=== PATIENT | female | born 1975 | race Caucasian/White ===

== ENCOUNTER 2022-03-22 21:35 | Emergency (ER) | payer OTHER, SELFPAY ==
[2022-03-22] MEDS ORDERED: NA CHLORIDE 0.9% 1,000 ML ONE (22:06)
[2022-03-22] MEDS ORDERED: ASPIRIN 81 MG CHEWABLE TABLET ONE (22:06)
[2022-03-22] MEDS ORDERED: ONDANSETRON 4 MG/2 ML VIAL ONE (22:10)
[2022-03-22 22:40] LABS: Absolute Lymphocytes (CBC) 3.4 K/uL (0.7-4.9); Hematocrit 37.4 % (36.0-45.0); Lymphocytes % 44.4 % (15.3-44.8); MPV 8.2 fL (7.6-11.3); RBC Red Blood Cell Count 4.39 M/uL (3.86-4.86)
[2022-03-22 22:43] LABS: Protime INR 0.99
[2022-03-22] MEDS ORDERED: FENTANYL CITR 100 MCG/2 ML ONE (22:51)
[2022-03-22 22:57] LABS: ALT/SGPT 37 U/L (12-78); AST/SGOT 18 U/L (15-37); Albumin 3.7 g/dL (3.4-5.0); Alkaline Phosphatase 39 U/L (45-117); BUN Blood Urea Nitrogen 13 mg/dL (7-18); Bicarbonate 27 mmol/L (21-32); Bilirubin Total 0.2 mg/dL (0.2-1.0); Glucose Level 163 mg/dL (74-106); NT PRO-BNP 16 pg/mL (<125); Potassium 3.8 mmol/L (3.5-5.1); Protein, Total 7.3 g/dL (6.4-8.2); Sodium Level 139 mmol/L (136-145)
[2022-03-22 23:14] LABS: Bilirubin Direct < 0.1 mg/dL (0-0.2); Troponin High Sensitivity < 3.0 pg/mL (<58.9)
[2022-03-22] MEDS ORDERED: PROMETHAZINE INJ 25 MG/ML AMP ONE (23:46)
[2022-03-23] MEDS ORDERED: KETOROLAC 30 MG/ML INJ ONE (00:21)
[2022-03-23 01:02] LABS: Urine Blood Negative (Negative); Urine Glucose Trace (Negative); Urine Protein Negative (Negative)
--- NOTE | 2022-03-23 01:35 | ER ---
Nurse's Notes [facility] Name: Sera Mascorro Age: 46 yrs Sex: Female : 1975 Arrival Date: 03/22/2022 Time: 21:43 Bed 4 Private MD: Diagnosis: Chest pain, unspecified Presentation: 03/22 21:54 Chief complaint: EMS states: Called for patient with onset of chest pressure this lp1 evening, radiating to back, neck and left arm; patient reports recent sobriety, last cocaine use was 5 days ago. Coronavirus screen: At this time, the client does not indicate any symptoms associated with coronavirus-19. Ebola Screen: No symptoms or risks identified at this time. Initial Sepsis Screen: Does the patient meet any 2 criteria? No. Patient's initial sepsis screen is negative. Does the patient have a suspected source of infection? No. Patient's initial sepsis screen is negative. Risk Assessment: Do you want to hurt yourself or someone else? Patient reports no desire to harm self or others. Onset of symptoms was March 22, 2022. 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 - Social history:: Smoking status: Patient denies any tobacco usage or history of. Patient uses street drugs, cocaine. Screenin:00 Abuse screen: Denies threats or abuse. Denies injuries from another. Nutritional lp1 screening: No deficits noted. Tuberculosis screening: No symptoms or risk factors identified. Fall Risk None identified. Assessment: 22:00 General: Appears in no apparent distress. Behavior is calm, cooperative, appropriate lp1 for age. Pain: Complains of pain in chest Radiating to Neck, back, left arm Pain currently is 8 out of 10 on a pain scale. Quality of pain is described as pressure, Pain began gradually. Neuro: Level of Consciousness is awake, alert, obeys commands, Oriented to person, place, time, situation. Cardiovascular: Patient's skin is warm and dry. Rhythm is regular. Respiratory: Respiratory effort is even, unlabored. GI: Reports nausea. : No signs and/or symptoms were reported regarding the genitourinary system. EENT: No signs and/or symptoms were reported regarding the EENT system. Derm: Skin is pink, warm \T\ dry. Musculoskeletal: No deficits noted. 22:56 Reassessment: Patient reports pain to chest; Verbal order from Provider for Fentanyl lp1 25mcg IV now. 23:30 Reassessment: C/O nausea, Dayton Page notified, medicated as ordered. ll3 03/23 00:30 Reassessment: Patient appears in no apparent distress at this time. Patient resting, lp1 eyes closed, respirations even. 01:55 Reassessment: Called [facility] for transportation back to facility, Dave ESPINOSA lp1 15 min. Vital Signs: 03/22 21:54 BP 108 / 73; Pulse 90; Resp 18; Temp 98.5(O); Pulse Ox 94% on R/A; Weight 84.82 kg (R); lp1 Height 5 ft. 2 in. (157.48 cm); Pain 8/10; 22:30 BP 104 / 66; Pulse 85; Resp 22; Pulse Ox 96% on R/A; ll3 23:15 BP 109 / 68; Pulse 85; Resp 20; Pulse Ox 96% on R/A; lp1 03/23 00:36 BP 124 / 82; Pulse 91; Resp 18; Pulse Ox 94% ; ll3 01:37 BP 122 / 82; Pulse 89; Resp 16; Pulse Ox 93% on R/A; lp1 03/22 21:54 Body Mass Index 34.20 (84.82 kg, 157.48 cm) lp1 ED Course: 03/22 21:43 Patient arrived in ED. vc1 21:43 Dayton Almaguer PA is PHCP. cp 21:43 Omi Campos MD is Attending Physician. cp 21:53 Rdaha Burden, WAGNER is Primary Nurse. lp1 21:55 Triage completed. lp1 21:55 Arm band placed on. lp1 21:56 XRAY Chest (1 view) In Process Unspecified. EDMS 22:15 Patient has correct armband on for positive identification. Placed in gown. Bed in low lp1 position. Call light in reach. hall monitor on. Pulse ox on. NIBP on. 22:27 Inserted saline lock: 20 gauge in right antecubital area, using aseptic technique. lp1 Blood collected. 22:30 Patient maintains SpO2 saturation greater than 95% on room air. lp1 03/23 01:54 No provider procedures requiring assistance completed. IV discontinued, No lp1 redness/swelling at site. Pressure dressing applied. Administered Medications: 03/22 22:30 Drug: NS 0.9% 500 ml Route: IV; Rate: bolus; Site: right antecubital; lp1 22:58 Follow up: IV Status: Completed infusion; IV Intake: 500ml lp1 22:31 Drug: Aspirin Chewable Tablet 324 mg Route: PO; lp1 23:30 Follow up: Response: No adverse reaction lp1 22:31 Drug: Zofran (Ondansetron) 4 mg Route: IVP; Site: right antecubital; lp1 23:40 Follow up: Response: No change in condition lp1 22:40 Not Given (Patinet repors allergy): morphine 2 mg IVP once; (PAIN>8) RASS on ADMN: lp1 Combtv4, Very Agttd3, Agttd2, Rstlss1, AlertClm0, Drwsy-1, LtSdtn-2, ModSdtn-3, DpSdtn-4, UnArsble-5 x2 22:57 Drug: fentaNYL (PF) 25 mcg {Note: Verbal order per TREVOR Wyatt.} Route: IVP; Site: lp1 right antecubital; 03/23 00:00 Follow up: Response: Pain is unchanged, physician notified lp1 03/22 22:58 Drug: NS 0.9% 500 ml Route: IV; Rate: 125 ml/hr; Site: right antecubital; lp1 03/23 01:54 Follow up: IV Status: Completed infusion; IV Intake: 500ml lp1 00:15 Drug: Phenergan (promethazine) 12.5 mg Route: IVP; Site: right antecubital; ll3 01:41 Follow up: Response: Nausea is decreased lp1 00:28 Drug: Ketorolac 30 mg Route: IVP; Site: right antecubital; ll3 01:53 Follow up: Response: Pain is decreased lp1 Intake: 03/22 22:58 IV: 500ml; Total: 500ml. lp1 03/23 01:54 IV: 500ml; Total: 1000ml. lp1 Outcome: 01:34 Discharge ordered by . kdr 02:10 Discharged to home ambulatory, [facility] staff lp1 02:10 Condition: good 02:10 Discharge instructions given to patient, Instructed on discharge instructions, follow up and referral plans. Demonstrated understanding of instructions, follow-up care. 02:10 Patient left the ED. lp1 Signatures: Dispatcher [employer] EDMS Omi Campos MD MD kdr Pena, Laura RN RN lp1 Dayton Almaguer PA PA cp Loubet, Lynsea, RN RN ll3 Lachelle Hauser RN RN vc1
--- NOTE | 2022-03-23 01:35 | EDPHYS ---
Physician Documentation [facility] Name: Sera Mascorro Age: 46 yrs Sex: Female : 1975 Arrival Date: 03/22/2022 Time: 21:43 Bed 4 Private MD: ED Physician Omi Campos HPI: 03/22 21:50 This 46 yrs old Female presents to ER via EMS with complaints of Chest Pain > 30 y/o. cp 21:50 The patient or guardian reports chest pain that is located primarily in the anterior cp aspect of left upper chest and left breast. Onset: today, about 1930. The pain radiates to the left arm, the left shoulder, left back. The chest pain is described as sharp. 21:50 Associated signs and symptoms: Pertinent negatives: abdominal pain, diaphoresis, cp dizziness, headache, lower extremity pain, lower extremity swelling, palpitations, shortness of breath, syncope. Duration: The patient or guardian reports a single episode, that is still ongoing, and unchanged. 21:50 Patient admits to use of cocaine 5 days ago and reports she is currently in rehab for cp drug use. 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 - Social history:: Smoking status: Patient denies any tobacco usage or history of. Patient uses street drugs, cocaine. ROS: 21:55 Constitutional: Negative for body aches, chills, fever, poor PO intake. cp 21:55 Eyes: Negative for injury, pain, redness, and discharge. cp 21:55 ENT: Negative for drainage from ear(s), ear pain, sore throat, difficulty swallowing, difficulty handling secretions. 21:55 Cardiovascular: Positive for chest pain, Negative for edema, palpitations. 21:55 Respiratory: Negative for cough, shortness of breath, wheezing. 21:55 Abdomen/GI: Positive for nausea, Negative for abdominal pain, vomiting, diarrhea, constipation. 21:55 Back: Positive for radiated pain. 21:55 Skin: Negative for rash. 21:55 Neuro: Negative for altered mental status, dizziness, headache, weakness. 21:55 All other systems are negative. Exam: 21:55 ECG was reviewed by the Attending Physician. cp 22:00 Constitutional: The patient appears in no acute distress, alert, awake, cp non-diaphoretic, non-toxic, well developed, well nourished, obese. 22:00 Head/Face: Normocephalic, atraumatic. cp 22:00 Eyes: Periorbital structures: appear normal, Conjunctiva: normal, no exudate, no injection, Sclera: no appreciated abnormality, Lids and lashes: appear normal, bilaterally. 22:00 ENT: External ear(s): are unremarkable, Nose: is normal, Mouth: Lips: moist, Oral mucosa: pink and intact, moist, Posterior pharynx: Airway: no evidence of obstruction, patent. 22:00 Neck: ROM/movement: is normal, is supple, without pain, no range of motions limitations, no nuchal rigidity. 22:00 Chest/axilla: Inspection: normal. 22:00 Cardiovascular: Rate: normal, Rhythm: regular, Edema: is not appreciated, JVD: is not appreciated. 22:00 Respiratory: the patient does not display signs of respiratory distress, Respirations: normal, no use of accessory muscles, no retractions, labored breathing, is not present, Breath sounds: are clear throughout, no decreased breath sounds, no stridor, no wheezing. 22:00 Abdomen/GI: Inspection: abdomen appears normal, Bowel sounds: active, all quadrants, Palpation: soft, in all quadrants, mild abdominal tenderness, in the right upper quadrant and left upper quadrant, rebound tenderness, is not appreciated, involuntary guarding, is not appreciated. 22:00 Neuro: Orientation: to person, place \T\ time. Mentation: is normal, Motor: moves all fours, strength is normal, Sensation: is normal. 03/23 00:28 ECG was reviewed by the Attending Physician. cp Vital Signs: 03/22 21:54 BP 108 / 73; Pulse 90; Resp 18; Temp 98.5(O); Pulse Ox 94% on R/A; Weight 84.82 kg (R); lp1 Height 5 ft. 2 in. (157.48 cm); Pain 8/10; 22:30 BP 104 / 66; Pulse 85; Resp 22; Pulse Ox 96% on R/A; ll3 23:15 BP 109 / 68; Pulse 85; Resp 20; Pulse Ox 96% on R/A; lp1 03/23 00:36 BP 124 / 82; Pulse 91; Resp 18; Pulse Ox 94% ; ll3 01:37 BP 122 / 82; Pulse 89; Resp 16; Pulse Ox 93% on R/A; lp1 03/22 21:54 Body Mass Index 34.20 (84.82 kg, 157.48 cm) lp1 MDM: 03/22 22:00 Differential diagnosis: abnormal EKG, acute myocardial infarction, acute pericarditis, cp anxiety, cholecystitis, Cholelithiasis pancreatitis, pericarditis, pleurisy, pneumonia, pneumothorax, pulmonary embolus, stable angina, unstable angina. 22:13 Patient medically screened. cp 03/22 21:45 Order name: Basic Metabolic Panel; Complete Time: 23:37 cp 03/22 23:38 Interpretation: Normal except: GLUC 163; GFR 73. cp 03/22 21:45 Order name: CBC with Diff; Complete Time: 23:37 cp 03/22 23:38 Interpretation: Normal except: HGB 11.8; MCH 26.9; MCHC 31.5; RDW 16.3. cp 03/22 21:45 Order name: LFT's; Complete Time: 23:37 cp 03/22 21:45 Order name: Magnesium; Complete Time: 23:37 cp 03/22 21:45 Order name: NT PRO-BNP; Complete Time: 23:37 cp 03/22 21:45 Order name: PT-INR; Complete Time: 23:37 cp 03/22 21:45 Order name: Troponin HS; Complete Time: 23:37 cp 03/22 23:38 Interpretation: Troponin HS < 3.0; Reviewed. cp 03/22 21:45 Order name: XRAY Chest (1 view) cp 03/23 00:44 Order name: Troponin HS; Complete Time: 01:33 cp 03/23 01:02 Order name: Urine Dipstick-Ancillary; Complete Time: 01:33 EDMS 03/22 21:45 Order name: EKG; Complete Time: 21:46 cp 03/22 21:45 Order name: Cardiac monitoring; Complete Time: 21:57 cp 03/22 21:45 Order name: EKG - Nurse/Tech; Complete Time: :57 cp 03/22 21:45 Order name: IV Saline Lock; Complete Time: : cp 03/22 21:45 Order name: Labs collected and sent; Complete Time: : cp 03/22 21:45 Order name: O2 Per Protocol; Complete Time: :57 cp 03/22 21:45 Order name: O2 Sat Monitoring; Complete Time: :57 cp 03/22 21:45 Order name: Urine Dipstick-Ancillary (obtain specimen); Complete Time: 01:40 cp 03/23 00:15 Order name: EKG; Complete Time: 00:16 cp 03/23 00:15 Order name: EKG - Nurse/Tech; Complete Time: 00:28 cp EC:55 Rate is 86 beats/min. Rhythm is regular. SC interval is normal. QRS interval is normal. cp QT interval is normal. T waves are Inverted in leads III, aVR. Interpreted by me. Reviewed by me. 03/23 00:28 Rate is 86 beats/min. Rhythm is regular. SC interval is normal. QRS interval is normal. cp QT interval is normal. T waves are Inverted in lead aVR. Interpreted by me. Reviewed by me. Administered Medications: 03/22 22:30 Drug: NS 0.9% 500 ml Route: IV; Rate: bolus; Site: right antecubital; lp1 22:58 Follow up: IV Status: Completed infusion; IV Intake: 500ml lp1 22:31 Drug: Aspirin Chewable Tablet 324 mg Route: PO; lp1 23:30 Follow up: Response: No adverse reaction lp1 22:31 Drug: Zofran (Ondansetron) 4 mg Route: IVP; Site: right antecubital; lp1 23:40 Follow up: Response: No change in condition lp1 22:40 Not Given (Patinet repors allergy): morphine 2 mg IVP once; (PAIN>8) RASS on ADMN: lp1 Combtv4, Very Agttd3, Agttd2, Rstlss1, AlertClm0, Drwsy-1, LtSdtn-2, ModSdtn-3, DpSdtn-4, UnArsble-5 x2 22:57 Drug: fentaNYL (PF) 25 mcg {Note: Verbal order per TREVOR Wyatt.} Route: IVP; Site: lp1 right antecubital; 03/23 00:00 Follow up: Response: Pain is unchanged, physician notified lp1 03/22 22:58 Drug: NS 0.9% 500 ml Route: IV; Rate: 125 ml/hr; Site: right antecubital; lp1 03/23 01:54 Follow up: IV Status: Completed infusion; IV Intake: 500ml lp1 00:15 Drug: Phenergan (promethazine) 12.5 mg Route: IVP; Site: right antecubital; ll3 01:41 Follow up: Response: Nausea is decreased lp1 00:28 Drug: Ketorolac 30 mg Route: IVP; Site: right antecubital; ll3 01:53 Follow up: Response: Pain is decreased lp1 Disposition: 01:33 Co-signature as Attending Physician, Omi Campos MD I agree with the assessment and kdr plan of care. Disposition Summary: 03/23/22 01:34 Discharge Ordered Location: Home kdr Problem: new kdr Symptoms: have improved kdr Condition: Stable kdr Diagnosis - Chest pain, unspecified kdr Followup: kdr - With: Private Physician - When: 2 - 3 days - Reason: If symptoms return, Further diagnostic work-up, Recheck today's complaints, Continuance of care, Re-evaluation by your physician Discharge Instructions: - Discharge Summary Sheet kdr - Nonspecific Chest Pain, Adult, [id number] kdr Forms: - Medication Reconciliation Form kdr - Thank You Letter kdr Signatures: Dispatcher [employer] [facility] Omi Campos MD MD kdr Radha Burden RN RN lp1 Dayton Almaguer PA PA cp Loubet, Lynsea, RN RN ll3 Corrections: (The following items were deleted from the chart) 03/22 23:41 21:45 Urine Test ordered. lp1
[2022-03-23 03:15] VITALS: TEMP 98.5
[2022-03-23 03:21] VITALS: BP 122/82; O2SAT 93
--- NOTE | 2022-03-23 08:32 | RAD REPORT ---
EXAM DESCRIPTION: RAD - Chest Single View - 03/22/2022 9:54 pm CLINICAL HISTORY: CHEST PAIN COMPARISON: None available TECHNIQUE: AP portable chest image was obtained 03/22/2022 9:54 pm . FINDINGS: Lung volumes are low. No peripheral mass or consolidation. No failure or volume overload f indings. Heart and vasculature are normal. No measurable pleural effusion and no pneumothorax. No acu te bony abnormality seen. No acute aortic findings suspected. IMPRESSION: No acute cardiopulmonary process.
== END 2022-03-23 02:10 | disposition home or self-care (01) ==
LOC: ER 21:35
DX: R07.9 Chest pain, unspecified (principal); Z88.6 Allergy status to analgesic agent; E11.9 Type 2 diabetes mellitus without complications; F41.8 Other specified anxiety disorders
CPT/HCPCS: 96361; 93005 ×2; 85025; 80048; 36415; 83735; 85610; 80076; 81003; 84484 ×2; 83880; 71045; 96375; 96374; 99285; J2550; J3010; J7030; J2405

== ENCOUNTER 2022-03-29 14:58 | Emergency (ER) | payer OTHER ==
--- OUTSIDE RECORDS SUMMARY | 2022-03-29 15:04 | XMS REPORT | Continuity of Care Document ---
:1975 Author Organization [facility] t Address [address] [place] [address] Care Team Providers Name Role Phone [email or web address] Attending Clinician Unavailable Leticia Attending Clinician [phone] Onesimo Attending Clinician Unavailable Ginger Attending Clinician [phone] Fredrick Attending Clinician Unavailable CHIRAG Attending Clinician Unavailable FRANKIE Attending Clinician Unavailable Grady Attending Clinician Unavailable Marjan Attending Clinician Unavailable Ronit Attending Clinician [phone] Valerie Attending Clinician Unavailable MD MERY ROSENBERG Attending Clinician Unavailable SHAKIRA Attending Clinician Unavailable NEO COBIAN Attending Clinician Unavailable Nabil Attending Clinician Unavailable QUIN Attending Clinician Unavailable HARRIET Attending Clinician Unavailable Alejandra Attending Clinician [phone] Haseeb Attending Clinician Unavailable Shan Attending Clinician Unavailable Eliot Attending Clinician Unavailable La Nena Pacheco Attending Clinician [phone] Renny Attending Clinician Unavailable Renny Attending Clinician [phone] Meena Attending Clinician [phone] Nehemiah Attending Clinician Unavailable Vonnie Attending Clinician Unavailable Akash Attending Clinician [phone] Kehinde Attending Clinician Unavailable Hamilton Attending Clinician [phone] Wilmer Attending Clinician [phone] Bhaskar Attending Clinician Unavailable Santiago Attending Clinician [phone] Shahid Attending Clinician Unavailable Rajendra Attending Clinician Unavailable Sourav Attending Clinician Unavailable Rochelle Attending Clinician [phone] Taqueria Attending Clinician Unavailable Litzy Attending Clinician Unavailable MD MANJULA ELENA Admitting Clinician Unavailable Atri Unavailable [phone] Junior A Unavailable [phone] Meena Unavailable [phone] Hamilton Unavailable [phone] Shahid Unavailable Unavailable Rochelle Unavailable [id number] Payers Payer Name Policy Type Policy Number Effective Date Expiration Date S evans Self Pay P [id number] 2017 00:00:00 $15 F [id number] 2012 00:00:00 Self Pay CI [id number] 2016 2017 [facility] 00:00:00 00:00:00 [facility] Self Pay MC NONE 2017 2017 [facility] 00:00:00 00:00:00 [facility] Self Pay MC [id number] 2017 2017 [facility] 00:00:00 00:00:00 [facility] Self Pay CI [id number] 2016 2017 [facility] 00:00:00 00:00:00 [facility] Problems Condition Condition Condition Status Onset Resolution Last Treating Co mments Source Name Details Category Date Date Treatment Clinician Date High risk Condition Active 2021-06-26 Atri [facility] medication 06-26 14:00:50 Tariq Co mmuni management 00:00: ty 00 Health Cocaine Condition Active 2021-02-28 AtriJeny gacy abuse, 12-09 14:18:10 Tariq Commun i continuous 00:00: ty 00 Health Yeast Condition Active 2021-02-28 Jeny Pacheco infection 08-03 14:18:09 Alvin perez 00:00: ty 00 Health Allergic Condition Active 2016-112021-02-28 Gabler, [facility] rhinitis 2-19 14:18:09 Bruna Commun i 00:00: ty 00 Health Genital Condition Active 2016-112021-02-28 Quincy Pacheco egacy herpes 0-06 14:18:09 Alvin A Communi 00:00: ty 00 Health Leukorrhea Condition Active 2016-112021-02-28 Kristel Pachecoacy 0-06 14:18:10 Alvin A Communi 00:00: ty 00 Health Hot Condition Active 2016-112021-02-28 Jeny Pacheco gacy flashes 0-06 14:18:10 Alvin A Communi 00:00: ty 00 Health History of Condition Active 2016-112021-02-28 Piotr Pacheco ovarian 0-06 14:18:10 Alvin A Communi cyst 00:00: ty 00 Health Pelvic Condition Active 2016-112021-02-28 Jeny Pacheco gacy pain 0-06 14:18:10 Alvin A Communi 00:00: ty 00 Health Esophagiti Condition Active 2021-02-28 Piotr Villasenor s 8-17 14:18:10 Tati Communi 00:00: ty 00 Health Noncardiac Condition Active 2021-02-28 Piotr Villasenor chest pain 817 14:18:10 Tati Com yanely 00:00: ty 00 Health Other Condition Active 2021-02-28 Jeny Villasenor gacy ovarian 4-24 14:18:10 Tati Commun i cyst, left 00:00: ty side 00 Health Back pain Condition Active 2021-02-28 Piotr Villasenor 4-24 14:18:10 Tati Communi 00:00: ty 00 Health Recurrent Condition Active 2021-02-28 Shahid, [facility] kidney 1-31 14:18:10 [place] Communi stones 00:00: ty 00 Health Hx of Condition Active 2015-112021-02-28 Rochelle, only has [facility] hysterecto 2 14:18:10 Natasha ovaries Co mmuni my, 00:00: ty partial 00 Health Diabetes Condition Active 2015-112021-02-28 Piotr Byrd mellitus, 2 14:18:10 Natasha Comm uni type II 00:00: ty 00 Health Generalize Condition Active 2015-112021-02-28 Leticia Piotr d anxiety 12-16 14:18:10 Tariq Com yanely disorder 00:00: ty 00 Health Bipolar 1 Condition Active 2015-112021-02-28 Leticia Piotr disorder, 12-16 14:18:10 Tariq Com yanely depressed 00:00: ty 00 Health History of Past Illness Condition Condition Condition Status Onset Resolution Last Treating Co mments Source Name Details Category Date Date Treatment Clinician Date Acute Condition Inactiv 2016-112017-11-30 2017-11-16 Piotr Robledo frontal e 01-17 00:00:00 15:30:19 Bruna Commu ni sinusitis 00:00: ty 00 Health URI Condition Inactiv 2015-112017-03-22 2017-03-28 Piotr Villasenor 12-30 00:00:00 14:11:26 Tati Commu ni 00:00: ty 00 Health BIPOLAR I Condition Inactiv 2013-2016-10-16 2016-10-16 Piotr KellyORD, dk 05-16 00:00:00 12:01:36 Tariq Comm uni MOST 00:00: ty RECENT 00 Health EPSD, MIXED NOS Allergies, Adverse Reactions, Alerts This patient has no known allergies or adverse reactions. Social History Social Habit Start Date Stop Date Quantity Comments Source time of call 2022-03-11 2022-03-11 03/11/2022 1:21 PM Lega cy 13:20:46 13:20:46 [facility] Health drug use 2022-03-11 2022-03-11 Currently [facility] 12:40:55 12:40:55 [facility] Health alcohol use 2022-03-11 2022-03-11 Previously [facility] 12:40:55 12:40:55 [facility] social history E&M 2022-03-11 2022-03-11 . Pt has Legacy 12:40:55 12:40:55 two daughters ages Commun ity 28 and 22. Pt was Health adopted and her adoptive parents are . Pt has 6 biologic siblings and two adoptive siblingsNot homeless. Born in [facility]. City: [facility]. State: [place]. Pt lives alone. Employed full-time. cashier and waiter/waitress. Highest education level: some college. Pt is currently unemployed but she babysits her friend's children. Sex at : Female. Sexual orientation: Bisexual. Gender identity: Female. Gender of partner(s): Male and Female. Sexually Active: Yes. go out to eat, spend time with family, social history 2022-03-11 2022-03-11 reviewed today [facility] reviewed E&M 12:40:55 12:40:55 [facility] albumin, serum 2021-09-18 2021-09-18 4.7 g/dL [facility] 12:33:00 12:33:00 [facility] if the patient is 2021-05-15 2021-05-15 No Legacy using/has used a 13:21:18 13:21:18 Communit y vaping item, Health Current, Former, Never Used, Not asked tobacco use 2020-09-30 2020-09-30 Currently [facility] (cigarettes, cigar, 14:09:27 14:09:27 Commu nity chew, pipe) Health passive cigarette 2018-08-03 2018-08-03 No Legacy smoke exposure 15:29:37 15:29:37 [facility] is there any chance 2018-08-03 2018-08-03 No Legac y that you could be 15:29:37 15:29:37 Communi ty ? Health sexual orientation 2017-11-16 2017-11-16 Bisexual [facility] 13:59:38 13:59:38 [facility] PHQ2 Questionairre 2017-11-16 2017-11-16 Legacy Score 13:59:38 13:59:38 [facility] Occupation #1 2016-10-29 2016-10-29 cashier and waiter/waitress Legacy 10:46:49 10:46:49 [facility] sex at 2016-10-29 2016-10-29 Female [facility] 10:46:49 10:46:49 [facility] family support 2016-10-16 2016-10-16 Lives in the home Leg acy 10:51:42 10:51:42 with 18 yr old Community daughter; Health in halfway for selling drugs. Pt not in real relationship with . Smoking Status Start Date Stop Date Source Never smoked tobacco (finding) L egacy [facility] Medications Ordered Filled Start Stop Current Ordering Indication Dosage Frequency Signature Comments Components Source Medication Medication Date Date Medication? Clinician (SIG) Name Name (LAMOTRIGIN 2022-0 Yes Tariq TAKE 1 [facility] E) 100 MG 4-04 Atri TABLET BY Commu ni TABS 00:00: MOUTH ty 00 TWICE A Health DAY (ESCITALOPR 0 Yes Tariq TAKE 1 [facility] AM OXALATE) 4-04 Atri TABLET BY Com yanely 20 MG TABS 00:00: MOUTH ty 00 EVERY DAY Health (BUSPIRONE Yes Tariq TAKE 1 L egacy HCL) 15 MG 2-25 Atri TABLET BY Comm uni TABS 00:00: MOUTH ty 00 THREE Health TIMES A DAY (TRAZODONE Yes Tariq TAKE 2 L egacy HCL) 100 MG 2-25 Atri TABLETS BY Co mmuni TABS 00:00: MOUTH ty 00 EVERY DAY Health AT NIGHT (BUSPIRONE 2020-11- No Tariq Take 1 [facility] HCL) 15 MG 1-19 02-25 Atri tablet by Com yanely TABS 00:00: 00:00 mouth ty 00 :00 three Health times a day LAMICTAL 2021- No Tariq Take 1 Le gacy (LAMOTRIGIN 28 04-04 Atri tablet by Co mmuni E) 100 MG 00:00: 00:00 mouth ty TABS 00 :00 twice a Health day LAMICTAL 2019-11- No Tariq 1 tablet [facility] (LAMOTRIGIN 1-17 09-27 Atri by mouth Com yanely E) 100 MG 00:00: 00:00 twice a ty TABS 00 :00 day Health RISPERDAL Yes Tariq Take 1 Le gacy (RISPERIDON 8-10 Atri tablet by Com yanely E) 2 MG 00:00: mouth ty TABS 00 twice a Health day LEXAPRO 2021- No Tariq Take 1 Leg acy (ESCITALOPR 8-10 04-04 Atri tablet by Co mmuni AM OXALATE) 00:00: 00:00 mouth once ty 20 MG TABS 00 :00 a day Health (BUSPIRONE 2020- No Tariq 1{Table 3xD Take 1 [facility] HCL) 10 MG 8-10 11-19 Atri t} tablet by Com yanely TABS 00:00: 00:00 mouth ty 00 :00 three Health times a day (LORAZEPAM) 2020-0 2020- No Tariq 1 TAB BY [facility] 1 MG TABS 04-29 08-10 Atri MOUTH Communi 00:00: 00:00 EVERY ty 00 :00 MORNING Health AND 2 TABS BY MOUTH TAKE AT BEDTIME ABILIFY 2019- No Tariq 1 tab By L marla (ARIPIPRAZO 01-19- Atri Mouth take C ommuni LE) 5 MG 00:00: 00:00 at bedtime ty TABS 00 :00 for Health bipolar depression VENLAFAXINE 2018-11- No Tariq TAKE 1 [facility] HCL ER 2 08-10 Atri CAPSULE BY Commun i (VENLAFAXIN 00:00: 00:00 MOUTH AT t y E HCL) 150 00 :00 BEDTIME Health MG FOR [id number] ANXIETY , DEPRESSION (TAKE TOGETHER WITH 75 MG DOSE) (TRAZODONE 2021- No Tariq Take 2 [facility] HCL) 100 MG 07-31-25 Atri tablet by Co mmuni TABS 00:00: 00:00 mouth ty 00 :00 every Health night VENLAFAXINE 2019- No Tariq TAKE 1 [facility] HCL ER 07-24 08-10 Atri CAPSULE BY Commun i (VENLAFAXIN 00:00: 00:00 MOUTH ONCE ty E HCL) 75 00 :00 DAILY TAKE Heal th MG WITH 150 [id number] MILLIGRAM DOSE (LAMOTRIGIN 2019- No Tariq TAKE 1 [facility] E) 100 MG 8 08-10 Atri TABLET BY Comm uni TABS 00:00: 00:00 MOUTH ty 00 :00 TWICE Health DAILY FOR BIPOLAR DEPRESSION (GABAPENTIN Yes Tariq 1{Table 3xD 1 tablet [facility] ) 600 MG 3-14 Atri t} by mouth Communi TABS 00:00: three ty 00 times a Health day (MIRTAZAPIN 2018- No 1 tab By L egacy E) 7.5 MG 3-14 07-11 Mouth take Com yanely TABS 00:00: 00:00 at bedtime ty 00 :00 for sleep Health DIFLUCAN 2018- No Alvin A 1 by mouth [facility] (FLUCONAZOL 08-03-06 Junior x1 dose Co mmuni E) 150 MG 00:00: 00:00 for yeast ty TABS 00 :00 infection Health ELAVIL 25 2018- No 1 tab By Leg acy MG ORAL 04-14 Mouth take Commu ni TABLET 00:00: 00:00 at bedtime ty 00 :00 for Health insomnia (AMOXICILLI 2016-11- No Bruna 1 by mouth [facility] N) 500 MG 01-17 Gabler 3 times a Co mmuni CAPS 00:00: 00:00 day for 7 ty 00 :00 days for Health sinus infection LATUDA 2016-11 2018- No 1 tab By [facility] (LURASIDONE 0 05- Mouth take C ommuni HCL) 40 MG 00:00: 00:00 at bedtime ty TABS 00 :00 for Health bipolar depression TERAZOL 7 2016-11- No Alvin A 1 vaginal Le gacy 0.4 % 009-16 Junior applicator applicato Communi VAGINAL 00:00: 00:00 full Every r ty CREAM 00 :00 at bedtime Health for 7 days vaginally DIFLUCAN 2016-11- No Alvin A take one one pill [facility] (FLUCONAZOL 0-09 07- Junior pill now today and Communi E) 150 MG 00:00: 00:00 and repeat repeat in ty TABS 00 :00 in 1 week 7 days Health VALTREX 2016-11 2018- No Alvin A 1 pill By Le gacy (VALACYCLOV 0- Junior Mouth Comm uni IR HCL) 500 00:00: 00:00 Twice a ty MG TABS 00 :00 Day for 3 Health days LO LOESTRIN 2016-11- No Alvin A 1 pill L egacy FE 0-05 08- Junior daily po Communi (NORETHIN-E 00:00: 00:00 ty TH 00 :00 Health ESTRAD-FE BIPHAS) 1 MG-10 MCG / 10 MCG TABS (OMEPRAZOLE Yes Bruna 1 capsule [facility] ) 40 MG 8- Gabler by mouth Commun i CPDR 00:00: every ty 00 morning Health (HYDROXYZIN 2017- No 1 tab By Sending [facility] E HCL) 50 8- 10- Mouth to Cindy Comm uni MG TABS 00:00: 00:00 Twice a ty 00 :00 Day for Health anxiety (HYDROXYZIN 2017- No 1 cap By Left in Legacy E PAMOATE) 04-19-17 Mouth Cindy's Comm uni 100 MG CAPS 00:00: 00:00 Twice a folder ty 00 :00 Day for for Rx Health anxiety assisttyler RODRIGUEZCO 5-325 2017- No ctrl Legac y MG ORAL 03-22 #[id number] Commun i TABLET 00:00: 00:00 5080 ty 00 :00 Health REGLAN 2017- No 1 by mouth Lega cy (METOCLOPRA 12-29 ac and Commu ni MIDE HCL) 00:00: 00:00 nightly at t y 10 MG TABS 00 :00 bedtime Health FLOMAX 2016- No 1 by mouth Lega cy (TAMSULOSIN 12-29 every day Co mmuni HCL) 0.4 MG 00:00: 00:00 until ty CAPS 00 :00 stone Health passed NORCO 2016- No Legacy 10-325 MG 12-29 Communi ORAL TABLET 00:00: 00:00 ty 00 :00 Health ATIVAN 2017- No 1 tab By Not [facility] (LORAZEPAM) 12-15- Mouth sending Com yanely 1 MG TABS 00:00: 00:00 qdaily for any RX ty 00 :00 anxiety today Health VALIUM 2016- No 1 tab By [facility] (DIAZEPAM) 12-01- Mouth Communi 2 MG TABS 00:00: 00:00 Three ty 00 :00 Times a Health Day As Needed anxiety (HALOPERIDO 2015-11 2017- No 1 tab By L egacy L) 5 MG 01-17- Mouth take Commu ni TABS 00:00: 00:00 at bedtime ty 00 :00 for mood Health (HYDROXYZIN 2015-11- No 1 tab By L egacy E HCL) 50 2-17 12- Mouth Communi MG TABS 00:00: 00:00 Three ty 00 :00 Times a Health Day As Needed anxiety (METFORMIN 2015-11 Yes Bruna 1 tablet Le gacy HCL) 500 MG 12-30 Gabler by mouth Co mmuni TABS 00:00: twice a ty 00 day Health (AMOXICILLI 2015- 2017- No 1 by mouth [facility] N) 500 MG 12-30 2 times a Comm uni CAPS 00:00: 00:00 day ty 00 :00 Health LAMICTAL 2015- 2016- No 1 tab By 340B Lega cy (LAMOTRIGIN 12-16 Mouth take C ommuni E) 25 MG 00:00: 00:00 at bedtime ty TABS 00 :00 x 1 week, Health then 2 tabs By Mouth take at bedtime x 1 week, then 3 tabs By Mouth take at bedtime x 1 week, then 4 tabs By Mouth at night Vital Signs Vital Name Observation Time Observation Value Comments Source weight E&M 2021-12-16 15:22:22 189 [lb_av] [facility] C ommunity Health weight in kilograms 2021-12-16 15:22:22 85.91 kg L [facility] E& Health blood pressure, 2020-01-19 11:57:45 81 mm[Hg] Legac [facility] diastolic Health blood pressure, 2020-01-19 11:57:45 134 mm[Hg] Legac [facility] systolic Health pulse rate 2020-01-19 11:57:45 120 /min [facility] C ommunity Health weight E&M 2020-01-19 11:57:45 205 [lb_av] [facility] C ommunity Health weight in kilograms 2020-01-19 11:57:45 93.18 kg L [facility] E& Health height in 2020-01-19 11:57:45 160.02 cm [facility] C ommunity centimeters E&M Health blood pressure, 2019-10-05 14:35:38 63 mm[Hg] Legac y [facility] diastolic Health blood pressure, 2019-10-05 14:35:38 127 mm[Hg] Legac [facility] systolic Health pulse rate 2019-10-05 14:35:38 102 /min [facility] C ommunity Health weight E&M 2019-10-05 14:35:38 209 [lb_av] [facility] C ommunity Health weight in kilograms 2019-10-05 14:35:38 95 kg L [facility] E& Health height in 2019-10-05 14:35:38 160.02 cm [facility] C ommunity centimeters E&M Health blood pressure, 2019-06-08 13:01:41 82 mm[Hg] Leg[facility] y [facility] diastolic Health blood pressure, 2019-06-08 13:01:41 124 mm[Hg] Legac y [facility] systolic Health pulse rate 2019-06-08 13:01:41 101 /min [facility] C ommunity Health weight E&M 2019-06-08 13:01:41 207.60 [lb_av] [facility] 2019-06-08 13:01:41 94.36 kg L [facility] E&M Health height in 2019-06-08 13:01:41 160.02 cm [facility] C ommunity centimeters E&M Health blood pressure, 2019-04-06 14:44:44 83 mm[Hg] Legac y [facility] diastolic Health blood pressure, 2019-04-06 14:44:44 132 mm[Hg] Legac y [facility] systolic Health pulse rate 2019-04-06 14:44:44 108 /min [facility] C ommunity Health weight E&M 2019-04-06 14:44:44 208.13 [lb_av] [facility] 2019-04-06 14:44:44 94.60 kg L [facility] E&M Health height in 2019-04-06 14:44:44 160.02 cm [facility] C ommunity centimeters E&M Health blood pressure, 2019-02-09 11:13:38 87 mm[Hg] Legac y [facility] diastolic Health blood pressure, 2019-02-09 11:13:38 136 mm[Hg] Legac y [facility] systolic Health pulse rate 2019-02-09 11:13:38 109 /min [facility] C ommunity Health weight E&M 2019-02-09 11:13:38 207.60 [lb_av] [facility] in kilograms 2019-02-09 11:13:38 94.36 kg L [facility] E&M Health height in 2019-02-09 11:13:38 160.02 cm [facility] C ommunity centimeters E&M Health pulse rate 2018-12-09 10:46:41 108 /min [facility] C ommunity Health blood pressure, 2018-12-09 10:46:41 83 mm[Hg] Legac y Community diastolic Health blood pressure, 2018-12-09 10:46:41 131 mm[Hg] Legac y [facility] systolic Health weight E&M 2018-12-09 10:46:41 205.25 [lb_av] [facility] weight in kilograms 2018-12-09 10:46:41 93.30 kg L [facility] E&M Health height in 2018-12-09 10:46:41 160.02 cm [facility] C ommunity centimeters E&M Health blood pressure, 2018-09-16 09:20:48 77 mm[Hg] Legac y [facility] diastolic Health blood pressure, 2018-09-16 09:20:48 124 mm[Hg] Legac y [facility] systolic Health pulse rate 2018-09-16 09:20:48 103 /min [facility] C ommunity Health weight E&M 2018-09-16 09:20:48 203.25 [lb_av] [facility] weight in kilograms 2018-09-16 09:20:48 92.39 kg L [facility] E& Health height in 2018-09-16 09:20:48 160.02 cm [facility] C ommunity centimeters E&M Health oxygen saturation, 2018-08-03 15:29:37 98 /min [facility] oximetry Health respiratory rate E&M 2018-08-03 15:29:37 18 /min [facility] pulse rate 2018-08-03 15:29:37 104 [facility] blood pressure, 2018-08-03 15:29:37 86 mm[Hg] Legac y [facility] diastolic Health blood pressure, 2018-08-03 15:29:37 145 mm[Hg] Legac y [facility] systolic Health weight E&M 2018-08-03 15:29:37 199.13 [lb_av] [facility] weight in kilograms 2018-08-03 15:29:37 90.51 kg L [facility] E& Health height in 2018-08-03 15:29:37 160.02 cm [facility] C ommunity centimeters E&M Health temperature site 2018-08-03 15:29:37 oral Lega cy [facility] Health blood pressure, 2018-06-29 10:38:06 67 mm[Hg] Legac y [facility] diastolic Health blood pressure, 2018-06-29 10:38:06 104 mm[Hg] Legac y [facility] systolic Health pulse rate 2018-06-29 10:38:06 108 /min [facility] C ommunity Health weight E&M 2018-06-29 10:38:06 201.40 [lb_av] [facility] weight in kilograms 2018-06-29 10:38:06 91.55 kg L [facility] E&M Health height E&M 2018-06-29 10:38:06 63 [in_i] [facility] C ommunity Health blood pressure, 2018-04-14 12:42:55 69 mm[Hg] Legac y [facility] diastolic Health blood pressure, 2018-04-14 12:42:55 102 mm[Hg] Legac y [facility] systolic Health pulse rate 2018-04-14 12:42:55 101 /min [facility] C ommunity Health weight E&M 2018-04-14 12:42:55 204.20 [lb_av] [facility] Health weight in kilograms 2018-04-14 12:42:55 92.82 kg L [facility] E&M Health height in 2018-04-14 12:42:55 160.02 cm [facility] C ommunity centimeters E&M Health blood pressure, 2018-01-06 17:38:19 66 mm[Hg] Legac y [facility] diastolic Health blood pressure, 2018-01-06 17:38:19 114 mm[Hg] Legac y [facility] systolic Health pulse rate 2018-01-06 17:38:19 123 /min [facility] C ommunity Health weight E&M 2018-01-06 17:38:19 197.20 [lb_av] [facility] Health weight in kilograms 2018-01-06 17:38:19 89.64 kg L [facility] E& Health height in 2018-01-06 17:38:19 160.02 cm [facility] C ommunity centimeters E&M Health oxygen saturation, 2017-11-16 13:59:38 97 /min Jeny [facility] oximetry Health blood pressure, 2017-11-16 13:59:38 83 mm[Hg] Legac y [facility] diastolic Health blood pressure, 2017-11-16 13:59:38 122 mm[Hg] Legac y [facility] systolic Health respiratory rate E&M 2017-11-16 13:59:38 24 /min [facility] pulse rate 2017-11-16 13:59:38 96 /min [facility] Health temperature E&M 2017-11-16 13:59:38 98.1 [degF] [facility] 2017-11-16 13:59:38 200.20 [lb_av] [facility] Health weight in kilograms 2017-11-16 13:59:38 91 kg L [facility] E& Health height in 2017-11-16 13:59:38 160.02 cm [facility] ommunity centimeters E&M Health pulse rate 2017-09-09 13:01:00 98 /min [facility] blood pressure, 2017-09-09 13:01:00 67 mm[Hg] Legac [facility] diastolic Health blood pressure, 2017-09-09 13:01:00 100 mm[Hg] [facility] weight E&M 2017-09-09 13:01:00 205.38 [lb_av] [facility] Health weight in kilograms 2017-09-09 13:01:00 93.35 kg L [facility] E& Health height in 2017-09-09 13:01:00 [facility]02 [facility] oxygen [facility], 2017-09-03 15:19:31 99 /min [facility] oximetry Health blood pressure, 2017-09-03 15:19:31 74 mm[Hg] Legac [facility] diastolic Health blood pressure, 2017-09-03 15:19:31 114 mm[Hg] Legac [facility] systolic Health respiratory rate E&M 2017-09-03 15:19:31 18 /min [facility] Health pulse rate 2017-09-03 15:19:31 101 /min [facility] Health temperature E&M 2017-09-03 15:19:31 98.7 [degF] [facility] Health weight E&M 2017-09-03 15:19:31 202 [lb_av] [facility] Health weight in kilograms 2017-09-03 15:19:31 91.82 kg L [facility] E& Health height in 2017-09-03 15:19:31 160.02 cm [facility] C ommunity centimeters E&M Health temperature site 2017-09-03 15:19:31 oral Lega [facility] Health respiratory rate E&M 2017-08-31 12:11:00 23 /min [facility] Health pulse rate 2017-08-31 12:11:00 105 [facility], 2017-08-31 12:11:00 98 /min [facility] Health blood pressure, 2017-08-31 12:11:00 81 mm[Hg] Legac y [facility] diastolic Health blood pressure, 2017-08-31 12:11:00 123 mm[Hg] Legac y [facility] systolic Health temperature E&M 2017-08-31 12:11:00 98.5 [degF] Legac y [facility] Health weight E&M 2017-08-31 12:11:00 200.20 [lb_av] [facility] weight in kilograms 2017-08-31 12:11:00 91 kg L [facility] E& Health height in 2017-08-31 12:11:00 [facility] temperature site 2017-08-31 12:11:00 oral Lega [facility] Health pulse rate 2017-07-15 15:52:20 95 /min [facility] [facility] respiratory rate E&M 2017-07-15 15:52:20 22 /min [facility] blood pressure, 2017-07-15 15:52:20 78 mm[Hg] [facility] diastolic Health blood pressure, 2017-07-15 15:52:20 118 mm[Hg] [facility] systolic Health oxygen saturation, 2017-07-15 15:52:20 95 /[facility]&M 2017-07-15 15:52:20 97.8 [degF] [facility] Health weight E&M 2017-07-15 15:52:20 197.80 [lb_av] [facility] Health weight in kilograms 2017-07-15 15:52:20 89.91 kg L [facility] E& Health height in 2017-07-15 15:52:20 160.02 cm [facility] E&M Health temperature site 2017-07-15 15:52:20 oral [facility] Health pulse rate 2017-07-15 14:13:16 111 /min [facility] blood pressure, 2017-07-15 14:13:16 72 mm[Hg] Legac y [facility] diastolic Health blood pressure, 2017-07-15 14:13:16 108 mm[Hg] Leg[facility] y [facility] systolic Health weight E&M 2017-07-15 14:13:16 197.50 [lb_av] [facility] Health weight in kilograms 2017-07-15 14:13:16 89.77 kg L [facility] E&M Health height in 2017-07-15 14:13:16 160.02 cm [facility] ommunity centimeters E&M Health pulse rate 2017-04-07 13:46:18 92 /min [facility] Health blood pressure, 2017-04-07 13:46:18 71 mm[Hg] Leg[facility] y [facility] diastolic Health blood pressure, 2017-04-07 13:46:18 109 mm[Hg] [facility] y [facility] systolic Health weight E&M 2017-04-07 13:46:18 207.13 [lb_av] [facility] Health weight in kilograms 2017-04-07 13:46:18 94.15 kg L [facility] E& Health height in 2017-04-07 13:46:18 160.02 cm [facility] ommunity centimeters E&M Health pulse rate 2017-03-22 10:23:01 90 /min [facility] Health respiratory rate E&M 2017-03-22 10:23:01 21 /min [facility] Health oxygen saturation, 2017-03-22 10:23:01 97 /min [facility] oximetry Health blood pressure, 2017-03-22 10:23:01 81 mm[Hg] Legac y [facility] diastolic Health blood pressure, 2017-03-22 10:23:01 121 mm[Hg] Leg[facility] y [facility] systolic Health weight E&M 2017-03-22 10:23:01 206.60 [lb_av] [facility] Health weight in kilograms 2017-03-22 10:23:01 93.91 kg [facility] E& Health height in 2017-03-22 10:23:01 160.02 cm [facility] ommunity centimeters E&M Health temperature E&M 2017-03-22 10:23:01 98.4 [degF] [facility] Health temperature site 2017-03-22 10:23:01 oral Lega cy [facility] Health pulse rate 2016-12-29 13:59:05 93 /min [facility] blood pressure, 2016-12-29 13:59:05 65 mm[Hg] Leg[facility] y [facility] diastolic Health blood pressure, 2016-12-29 13:59:05 101 mm[Hg] Leg[facility] y [facility] systolic Health height in 2016-12-29 13:59:05 160.02 cm [facility] ommunity centimeters E&M Health weight E&M 2016-12-29 13:59:05 200 [lb_av] [facility] weight in kilograms 2016-12-29 13:59:05 90.91 kg [facility] E& Health oxygen saturation, 2016-12-29 10:07:59 99 /min [facility] oximetry Health blood pressure, 2016-12-29 10:07:59 82 mm[Hg] [facility] diastolic Health blood pressure, 2016-12-29 10:07:59 119 mm[Hg] Leg[facility] y [facility] systolic Health respiratory rate E&M 2016-12-29 10:07:59 17 /min [facility] Health pulse rate 2016-12-29 10:07:59 90 /min [facility] temperature E&M 2016-12-29 10:07:59 98.4 [degF] [facility] Health weight E&M 2016-12-29 10:07:59 198 [lb_av] [facility] om[facility]ity Health weight in kilograms 2016-12-29 10:07:59 90 kg [facility] E& Health height in 2016-12-29 10:07:59 160.02 [facility] E[facility]M Health temperature site 2016-12-29 10:07:59 tympanic [facility] Health pulse rate 2016-12-15 15:50:23 85 /min [facility] blood pressure, 2016-12-15 15:50:23 75 mm[Hg] [facility] diastolic Health blood pressure, 2016-12-15 15:50:23 114 mm[Hg] [facility] systolic Health weight E&M 2016-12-15 15:50:23 198.25 [lb_av] [facility] weight in kilograms 2016-12-15 15:50:23 90.11 kg [facility] E&M Health height in 2016-12-15 15:50:23 160.02 [facility] E[facility]M Health blood pressure, 2016-12-01 16:53:06 72 mm[Hg] [facility] diastolic Health blood pressure, 2016-12-01 16:53:06 118 mm[Hg] [facility] systolic Health pulse rate 2016-12-01 16:53:06 84 /min [facility] Health weight E&M 2016-12-01 16:53:06 190 [lb_av] [facility] weight in kilograms 2016-12-01 16:53:06 86.36 kg L [facility] E&M Health height in 2016-12-01 16:53:06 160.02 [facility] centimeters E&M Health pulse rate 2016-11-16 10:21:12 101 /min [facility] Health blood pressure, 2016-11-16 10:21:12 79 mm[Hg] [facility] diastolic Health blood pressure, 2016-11-16 10:21:12 120 mm[Hg] [facility] systolic Health weight E&M 2016-11-16 10:21:12 195.38 [lb_av] [facility] Health weight in kilograms 2016-11-16 10:21:12 88.81 kg [facility] E& Health height in 2016-11-16 10:21:12 160.02 cm [facility] ommunity centimeters E&M Health oxygen saturation, 2016-10-29 10:46:49 94 /min [facility] oximetry Health blood pressure, 2016-10-29 10:46:49 87 mm[Hg] [facility] diastolic Health blood pressure, 2016-10-29 10:46:49 124 mm[Hg] [facility] systolic Health respiratory rate E&M 2016-10-29 10:46:49 16 /min [facility] Health pulse rate 2016-10-29 10:46:49 97 /min [facility] Health temperature E&M 2016-10-29 10:46:49 98.5 [degF] [facility] Health weight E&M 2016-10-29 10:46:49 197 [lb_av] [facility] Health weight in kilograms 2016-10-29 10:46:49 89.55 kg L [facility] E&M Health height in 2016-10-29 10:46:49 160.02 cm [facility] ommunity centimeters E&M Health temperature site 2016-10-29 10:46:49 oral Lega cy [facility] Health blood pressure, 2016-10-16 10:51:42 78 mm[Hg] [facility] diastolic Health blood pressure, 2016-10-16 10:51:42 130 mm[Hg] [facility] systolic Health pulse rate 2016-10-16 10:51:42 96 /min [facility] Health weight E&M 2016-10-16 10:51:42 191.40 [lb_av] [facility] weight [facility] 2016-10-16 10:51:42 87 kg [facility] E&M Health height in 2016-10-16 10:51:42 160.02 cm [facility] ommunity centimeters E&M Health Procedures Procedure Date / Time Performing Clinician Source Performed Behavioral Health - 2021-02-28 14:21:37 Tariq Kelly C ommunity Therapy Health Addiction Recovery 2020-09-05 10:05:11 Henna Phillip [facility] Social Work Health Production Control Planner 2020-09-02 14:37:27 Tariq Kelly [facility] Health Behavioral Health - 2020-07-08 13:41:17 Tariq Kelly C ommunity Therapy Health Behavioral Health - 2018-01-06 18:15:02 Tariq Kelly C ommunity Therapy Health Rapid Flu - In House 2016-10-29 11:15:54 Natasha Byrd [facility] Prescription Assistance 2016-10-16 11:53:08 Tariq Kelly cy [facility] Diagnostic evaluation 2016-10-16 11:47:58 Tariq Kelly [facility] with medical - [id number] Health Encounters Start End Encounter Admission Attending Care Care Encounter Source Date/Time Date/Time Type Type Clinicians Facility Department ID 2022-03-23 Outpatient lchaileyri [facility] [id number] [facility] 10:13:02 [facility] 2022-02-21 [facility] [id number] [place] 07:43:22 [id number] [facility] 2022-03-11 2022-03-11 Office Atri, [facility] [id number] [facility] 00:00:00 00:00:00 Visit Tariq [id number] [facility] 2022-02-09 2022-02-09 [facility] [id number] [facility] 00:00:00 00:00:00 Visit Janey Echols [facility] 2022-01-26 2022-01-26 Office Atri, [facility] [id number] [facility] 00:00:00 00:00:00 Visit Tariq [facility] 2021-12-16 2021-12-16 Office Atri, [facility] [id number] [facility] 00:00:00 00:00:00 Visit Tariq [id number] Com[facility] ni [facility] 2021-10-17 2021-10-17 Office Atri, [facility] [id number] [facility] 00:00:00 00:00:00 Visit Tariq 51264 Com[facility] ni ty [facility] 2021-08-26 2021-08-26 Office Atri, [facility] [id number] [facility] 00:00:00 00:00:00 Visit Tariq 99172 [facility] 2021-06-26 2021-06-26 Office Atri, [facility] [id number] [facility] 00:00:00 00:00:00 Visit Tariq 40022 Com[facility] ni ty Health 2021-05-15 2021-05-15 Office Atri, [facility] [id number] [facility] 00:00:00 00:00:00 Visit Tariq 69263 Com[facility] ni ty Health 2021-04-01 2021-04-01 Office Atri, [facility] [id number] [facility] 00:00:00 00:00:00 Visit Tariq 92659 Com[facility] ty Health 2021-02-28 2021-02-28 Office Atri, Tariq [facility] [id number] [facility] 00:00:00 00:00:00 Visit Bishop Miles [id number] Co shaniquaarmandomorris Alcala Shirley khanna Health 2021-01-31 2021-01-31 Office Atri, [facility] [id number] [facility] 00:00:00 00:00:00 Visit Tariq 41260 Commu ni ty Health 2021-01-23 2021-01-23 Outpatient TOJUOLA, [facility] [id number] [place] 00:00:00 00:00:00 OLUBAYO [address] 2021-01-23 2021-01-23 Outpatient TOJUOLA, [facility] [id number] [place] 00:00:00 00:00:00 OLUBAYO [address] 2021-01-21 2021-01-21 Outpatient [facility] [id number] [place] 00:00:00 00:00:[address] 2021-01-03 2021-01-03 Office Atri, [facility] [id number] [facility] 00:00:00 00:00:00 Visit Tariq [id number] Com[facility] ni ty Health 2020-12-02 2020-12-02 Office Atri, [facility] [id number] [facility] 00:00:00 00:00:00 Visit Tariq 05036 Commu ni ty Health 2020-10-29 2020-10-29 Office Atri, [facility] [id number] [facility] 00:00:00 00:00:00 Visit Tariq 13412 Commu ni ty Health 2020-09-30 2020-09-30 Office Atri, [facility] [id number] [facility] 00:00:00 00:00:00 Visit Tariq 26161 Commu ni ty Health 2020-09-23 2020-09-23 Outpatient FRANKIE, [facility] [id number] [place] 00:00:00 00:00:00 FE [address] 2020-09-16 2020-09-16 Office Atri, [facility] [id number] [facility] 00:00:00 00:00:00 Visit Tariq 48881 Commu ni ty Health 2020-09-02 2020-09-02 Office Atri, Tariq [facility] [id number] [facility] 00:00:00 00:00:00 Visit Yazmin aRsmussen 75711 Henna Miramontes [facility] 2020-07-08 2020-07-08 [id number] [facility] 00:00:00 00:00:00 Visit Ariane Cottrell 04692 Kam Parnell [facility] 2020-07-03 2020-07-03 Outpatient [facility] [id number] [place] 00:00:00 00:00:00 379 Method i 2020-06-24 2020-06-25 Emergency WINGKUN, [facility] [id number] [place] 00:00:00 00:00:00 RICARDO 963 Me thodi 2020-06-12 2020-06-12 Outpatient TOJUOLA, [facility] [id number] [place] 00:00:00 00:00:00 OLUBAYO 731 Method i 2020-06-11 2020-06-11 Outpatient FRANKIE, [facility] [id number] [place] 00:00:00 00:00:00 YASSIR 541 Method i 2020-05-27 2020-05-27 Office Atri, [facility] [id number] [facility] 00:00:00 00:00:00 Visit Tariq 69037 [facility] 2020-04-03 2020-04-03 Office Atri, [facility] [id number] [facility] 00:00:00 00:00:00 Visit Tariq 12470 [facility] 2020-03-29 2020-03-29 Outpatient TOJUOLA, [facility] [id number] [place] 00:00:00 00:00:00 OLUBAYO 229 Method i 2020-03-28 2020-03-28 Outpatient TOJUOLA, [facility] [id number] [place] 00:00:00 00:00:00 OLUBAYO 829 Method i 2020-03-14 2020-03-15 Emergency VANDER [facility] [id number] [place] 00:00:00 00:00:00 MANGO, 631 Method i ANDREW 2020-03-14 2020-03-14 Outpatient FRANKIE, [facility] [id number] [place] 00:00:00 00:00:00 CASEYIR [address] 2020-03-12 2020-03-12 Outpatient [facility] [id number] [place] 06:55:19 06:55:19 Health 2020-02-28 2020-02-28 Outpatient [facility] [id number] [place] 00:00:00 00:00:00 [facility] 2020-02-22 2020-02-22 Office Leticia [facility] [id number] [facility] 00:00:00 00:00:00 Visit Tariq 33584 Commu ni [facility] 2020-01-31 2020-01-31 Outpatient [facility] [id number] [place] 13:33:02 13:33:02 Health 2020-01-19 2020-01-19 Office Tariq Kelly [facility] [id number] [facility] 00:00:00 00:00:00 Visit Cindy Ferrer [id number] [facility] 2020-01-01 2020-01-01 Outpatient [facility] [id number] [place] 00:00:00 00:00:00 [facility] 2019-12-19 2019-12-19 Emergency QUIN, [facility] [id number] [place] 00:00:00 00:00:00 MIC [address] 2019-11-30 2019-11-30 Outpatient [facility] [id number] [place] 15:29:43 15:29:43 Health 2019-11-03 2019-11-03 Outpatient [facility] [id number] [place] 11:18:10 11:18:10 Health 2019-11-03 2019-11-03 Outpatient [facility] [id number] [place] 09:59:13 09:59:13 Health 2019-11-03 2019-11-03 Outpatient [facility] [id number] [place] 00:00:00 00:00:00 [facility] 2019-10-16 2019-10-16 Outpatient [facility] [id number] [place] 00:00:00 00:00:00 [facility] 2019-10-09 2019-10-09 Emergency HARRIET, [place] [id number] [place] 00:00:00 00:00:00 NATHALY [address] 2019-10-05 2019-10-05 Office Tariq Kelly [facility] [id number] [facility] 00:00:00 00:00:00 Visit Cindy Ferrer [id number] [facility] 2019-08-21 2019-08-21 Outpatient [facility] [id number] [place] 15:25:46 15:25:46 Health 2019-08-21 2019-08-21 Outpatient [facility] [id number] [place] 15:06:01 15:06:01 Health 2019-08-21 2019-08-21 Outpatient [facility] [id number] [place] 14:19:26 14:19:26 Health 2019-08-04 2019-08-04 Outpatient [facility] [id number] [place] 00:00:00 00:00:00 [facility] 2019-06-27 2019-06-27 Outpatient [facility] [id number] [place] 00:00:00 00:00:00 [facility] 2019-06-27 2019-06-27 Outpatient [facility] [id number] [place] 00:00:00 00:00:00 [facility] 2019-06-20 2019-06-20 Outpatient [facility] [id number] [place] 10:20:58 10:20:58 Health 2019-06-20 2019-06-20 Outpatient [facility] [id number] [place] 10:20:12 10:20:12 [facility] 2019-06-20 2019-06-20 Outpatient [facility] [id number] [place] 09:19:53 09:19:53 [facility] 2019-06-20 2019-06-20 Outpatient [facility] [id number] [place] 00:00:00 00:00:00 [facility] 2019-06-08 2019-06-08 Office Tariq Kelly [facility] [id number] [facility] 00:00:00 00:00:00 Visit Kam Padilla [id number] [facility] 2019-06-07 2019-06-07 Outpatient [facility] [id number] [place] 00:00:00 00:00:00 [facility] 2019-05-18 2019-05-18 Outpatient [facility] [id number] [place] 00:00:00 00:00:00 [facility] 2019-05-16 2019-05-16 Outpatient [facility] [id number] [place] 00:00:00 00:00:00 [facility] 2019-05-15 2019-05-15 Outpatient [facility] [id number] [place] 06:52:55 06:52:55 Health 2019-05-15 2019-05-15 Outpatient [facility] [id number] [place] 00:00:00 00:00:00 [facility] 2019-05-11 2019-05-11 Outpatient [facility] [id number] [place] 10:41:00 10:41:00 [facility] 2019-05-11 2019-05-11 Outpatient [facility] [id number] [place] 00:00:00 00:00:00 [facility] 2019-05-08 2019-05-08 Outpatient [facility] [id number] [place] 00:00:00 00:00:00 [facility] 2019-05-04 2019-05-04 Outpatient [facility] [id number] [place] 11:04:24 11:04:24 [facility] 2019-05-04 2019-05-04 Outpatient [facility] [id number] [place] 00:00:00 00:00:00 [facility] 2019-05-01 2019-05-01 Outpatient [facility] [id number] [place] 14:42:33 14:42:33 [facility] 2019 2019 Outpatient [facility] [id number] [place] 00:00:00 00:00:00 [facility] 2019-04-13 2019-04-13 Outpatient [facility] [id number] [place] 00:00:00 00:00:00 [facility] 2019-04-06 2019-04-07 Office Tariq Kelly [facility] [id number] [place] 00:00:00 00:00:00 Visit AlejandraNaila corrigan [id number] Communi ty [facility] 2019-04-04 2019-04-04 Outpatient [facility] [id number] [place] 14:42:07 14:42:07 [facility] 2019-03-28 2019-03-28 Outpatient [facility] [id number] [place] 14:52:02 14:52:02 [facility] 2019-03-23 2019-03-23 Outpatient [facility] [id number] [place] 09:46:54 09:46:54 [facility] 2019-03-21 2019-03-21 Outpatient [facility] [id number] [place] 13:27:30 13:27:30 [facility] 2019-03-15 2019-03-15 Outpatient [facility] [id number] [place] 17:01:39 17:01:39 [facility] 2019-03-10 2019-03-10 Outpatient [facility] [id number] [place] 00:00:00 00:00:00 [facility] 2019-03-07 2019-03-07 Outpatient [facility] [id number] [place] 13:33:19 13:33:19 [facility] 2019-03-06 2019-03-06 Outpatient [facility] [id number] [place] 00:00:00 00:00:00 [facility] 2019-03-06 2019-03-06 Outpatient [facility] [id number] [place] 00:00:00 00:00:00 [facility] 2019-03-04 2019-03-04 Emergency [facility] [id number] [place] 01:30:44 01:30:44 Health 2019-03-04 2019-03-04 Emergency [facility] [id number] [place] 00:19:08 00:19:08 [facility] 2019-03-02 2019-03-02 Outpatient [facility] [id number] [place] 00:00:00 00:00:00 [facility] 2019-03-01 2019-03-01 Outpatient [facility] [id number] [place] 00:00:00 00:00:00 [facility] 2019-03-01 2019-03-01 Outpatient [facility] [id number] [place] 00:00:00 00:00:00 [facility] 2019-02-27 2019-02-27 Outpatient [facility] [id number] [place] 00:00:00 00:00:00 [facility] 2019-02-24 2019-02-24 Outpatient [facility] [id number] [place] 15:36:58 15:36:58 [facility] 2019-02-21 2019-02-21 Outpatient [facility] [id number] [place] 11:04:11 11:04:11 [facility] 2019-02-21 2019-02-21 Outpatient [facility] [id number] [place] 00:00:00 00:00:00 [facility] 2019-02-13 2019-02-13 Outpatient [facility] [id number] [place] 00:00:00 00:00:00 [facility] 2019-02-09 2019-02-09 Office Tariq Kelly [facility] [id number] [place] 00:00:00 00:00:00 Visit Kam Padilla [id number] Tyleri ty [facility] 2019-02-08 2019-02-08 Outpatient [facility] [id number] [place] 13:54:31 13:54:31 Health 2019-02-07 2019-02-07 Outpatient [facility] [id number] [place] 15:17:18 15:17:18 [facility] 2019-02-07 2019-02-07 Outpatient [facility] [id number] [place] 14:41:40 14:41:40 Health 2019-01-30 2019-01-30 Outpatient [facility] [id number] [place] 10:26:03 10:26:03 Health 2019-01-16 2019-01-16 Outpatient [facility] [id number] [place] 00:00:00 00:00:00 [facility] 2018-12-20 2018-12-20 Outpatient [facility] [id number] [place] 00:00:00 00:00:00 [facility] 2018-12-09 2018-12-12 Office Tariq Kelly [facility] [id number] [facility] 00:00:00 00:00:00 [facility] [id number] [facility] 2018-12-05 Outpatient [facility] [id number] [place] 00:00:00 00:00:00 [facility] 2018-11-04 2018-11-04 Outpatient [facility] [id number] [place] 00:00:00 00:00:00 [facility] 2018-10-26 2018-10-26 Outpatient [facility] [id number] [place] 09:08:48 09:08:48 [facility] 2018-10-13 2018-10-13 Emergency [facility] [id number] [place] 20:29:33 20:29:33 [facility] 2018-10-13 2018-10-13 Outpatient [facility] [id number] [place] 16:17:09 16:17:09 [facility] 2018-10-13 2018-10-13 Outpatient [facility] [id number] [place] 15:32:26 15:32:26 [facility] 2018-10-13 2018-10-13 Outpatient [facility] [id number] [place] 00:00:00 00:00:00 [facility] 2018-09-30 2018-09-30 Outpatient [facility] [id number] [place] 00:00:00 00:00:00 [facility] 2018-09-29 2018-09-29 Outpatient [facility] [id number] [place] 00:00:00 00:00:00 [facility] 2018-09-29 2018-09-29 Outpatient [facility] [id number] [place] 00:00:00 00:00:00 [facility] 2018-09-27 2018-09-27 Outpatient [facility] [id number] [place] 00:00:00 00:00:00 [facility] 2018-09-23 2018-09-23 Outpatient [facility] [id number] [place] 00:00:00 00:00:00 [facility] 2018-09-20 2018-09-20 Outpatient [facility] [id number] [place] 00:00:00 00:00:00 [facility] 2018-09-16 2018-09-16 Office Tariq Kelly [facility] [id number] [place] 00:00:00 00:00:00 Visit Dannielle Torrez [id number] C zakmorris MccabeMary ty [facility] 2018-09-05 2018-09-05 Outpatient [facility] [id number] [place] 00:00:00 00:00:00 [facility] 2018-09-01 2018-09-01 Emergency [facility] MED [id number] [place] 20:39:23 20:39:23 Health 2018-08-30 2018-08-30 Outpatient [facility] [id number] [place] 13:38:53 13:38:53 Health 2018-08-29 2018-08-29 Outpatient [facility] [id number] [place] 12:07:20 12:07:20 Health 2018-08-29 2018-08-29 Outpatient [facility] [id number] [place] 10:48:59 10:48:59 [facility] 2018-08-26 2018-08-26 Emergency [facility] [id number] [place] 01:23:49 01:23:49 [facility] 2018-08-25 2018-08-25 Emergency [facility] [id number] [place] 23:04:57 23:04:57 [facility] 2018-08-25 2018-08-25 Emergency [facility] [id number] [place] 19:23:00 19:23:00 [facility] 2018-08-24 2018-08-24 Outpatient [facility] [id number] [place] 11:12:07 11:12:07 [facility] 2018-08-24 2018-08-24 Outpatient [facility] [id number] [place] 00:00:00 00:00:00 [facility] 2018-08-23 2018-08-23 Outpatient [facility] [id number] [place] 12:24:47 12:24:47 Health 2018-08-23 2018-08-23 Outpatient [facility] [id number] [place] 12:00:24 12:00:24 [facility] 2018-08-17 2018-08-17 Outpatient [facility] [id number] [place] 00:00:00 00:00:00 [facility] 2018-08-15 2018-08-15 Outpatient [facility] [id number] [place] 07:00:20 07:00:20 [facility] 2018-08-05 2018-08-05 Outpatient [facility] [id number] [place] 00:00:00 00:00:00 [facility] 2018-08-03 2018-08-03 Office Alvin Pacheco [facility] [id number] [place] 00:00:00 00:00:00 Visit Tara Lawsonela [id number] Communi ty [facility] 2018-07-28 2018-07-28 Outpatient [facility] [id number] [place] 00:00:00 00:00:00 [facility] 2018-07-21 2018-07-21 Outpatient [facility] [id number] [place] 00:00:00 00:00:00 [facility] 2018-07-12 2018-07-12 Outpatient [facility] [id number] [place] 00:00:00 00:00:00 [facility] 2018-06-29 2018-06-29 Office Tariq Kelly [facility] [id number] [place] 00:00:00 00:00:00 Visit Cindy Ferrer [id number] Communi ty [facility] 2018-06-14 2018-06-14 Outpatient [facility] [id number] [place] 00:00:00 00:00:00 [facility] 2018-06-06 2018-06-06 Outpatient [facility] [id number] [place] 14:56:51 14:56:51 Health 2018-06-06 2018-06-06 Outpatient [facility] [id number] [place] 13:46:50 13:46:50 [facility] 2018-05-30 2018-05-30 Outpatient [facility] [id number] [place] 00:00:00 00:00:00 [facility] 2018-05-24 2018-05-24 Outpatient [facility] [id number] [place] 00:00:00 00:00:00 [facility] 2018-05-19 2018-05-19 Outpatient [facility] [id number] [place] 00:00:00 00:00:00 [facility] 2018-05-17 2018-05-17 Outpatient [facility] [id number] [place] 00:00:00 00:00:00 [facility] 2018-05-10 2018-05-10 Outpatient [facility] [id number] [place] 00:00:00 00:00:00 [facility] 2018-04-14 2018-04-14 Office Tariq Kelly [facility] [id number] [place] 00:00:00 00:00:00 [facility] [id number] [facility]12 2018-04-12 Outpatient [facility] [id number] [place] 12:47:37 12:47:37 Health 2018-04-04 2018-04-04 Outpatient [facility] [id number] [place] 00:00:00 00:00:00 [facility] 2018-03-24 2018-03-24 Outpatient [facility] [id number] [place] 09:36:57 09:36:57 Health 2018-03-15 2018-03-15 Outpatient [facility] [id number] [place] 13:20:00 13:20:00 [facility] 2018-02-14 2018-02-14 Outpatient [facility] [id number] [place] 00:00:00 00:00:00 [facility] 2018-02-01 2018-02-01 Outpatient [facility] [id number] [place] 11:35:51 11:35:51 [facility] 2018-01-27 2018-01-27 Outpatient [facility] [id number] [place] 15:32:06 15:32:06 Health 2018-01-26 2018-01-26 Outpatient [facility] [id number] [place] 07:10:51 07:10:51 [facility] 2018-01-18 2018-01-18 Outpatient [facility] [id number] [place] 11:05:50 11:05:50 [facility] 2018-01-17 2018-01-17 Outpatient [facility] [id number] [place] 15:04:55 15:04:55 [facility] 2018-01-06 2018-01-07 Office Tariq Kelly [facility] [id number] [facility] 00:00:00 00:00:00 Visit Klarissa Lawson [id number] Cindy Larry Emmanuel [facility] 2017-12-22 2017-12-22 Outpatient [facility] [id number] [place] 13:51:25 13:51:25 [facility] 2017-12-22 2017-12-22 Outpatient [facility] [id number] [place] 13:06:37 13:06:37 [facility] 2017-12-15 2017-12-15 Outpatient [facility] [id number] [place] 00:00:00 00:00:00 [facility] 2017-12-01 2017-12-01 Outpatient [facility] [id number] [place] 13:35:25 13:35:25 Health 2017-12-01 2017-12-01 Outpatient [facility] [id number] [place] 11:04:56 11:04:56 Health 2017-12-01 2017-12-01 Outpatient [facility] [id number] [place] 10:10:52 10:10:52 Health 2017-12-01 2017-12-01 Outpatient [facility] [id number] [place] 00:00:00 00:00:00 [facility] 2017-11-30 2017-11-30 Outpatient [facility] [id number] [place] 00:00:00 00:00:00 Health 2017-11-30 2017-11-30 Outpatient [facility] [id number] [place] 00:00:00 00:00:00 [facility] 2017-11-16 2017-11-22 Office Bruna Robledo [facility] [id number] [place] 00:00:00 00:00:00 Visit Laura Cerna [id number] [facility] 2017-09-22 2017-09-22 Outpatient [facility] [id number] [place] 00:00:00 00:00:00 [facility] 2017-09-09 2017-09-09 Office Tariq Kelly [facility] [id number] [place] 00:00:00 00:00:00 Visit Reba Membreno [id number] [facility] 2017-08-31 2017-09-07 Office Alvin Pacheco [facility] Enc ounter/ [place] 00:00:00 00:00:00 Visit Jose Shankar [id number] [facility] Ewa Bustos [id number] [place], [facility] Tati Villasenor Tamika 2017-09-03 2017-09-03 Office Alvin Pacheco [facility] [id number] [place] 00:00:00 00:00:00 Visit Sandhya Muor 84838 C [facility] 2017-08-27 2017-08-27 Outpatient [facility] [id number] [place] 00:00:00 00:00:00 [facility] 2017-07-15 2017-07-15 Office Tariq Kelly [facility] [id number] [place] 00:00:00 00:00:00 Visit Reba Membreno 73723 [facility] 2017-05-20 2017-05-20 Outpatient [facility] [id number] [place] 00:00:00 00:00:00 [facility] 2017-05-13 2017-05-13 Outpatient [facility] [id number] [place] 00:00:00 00:00:00 [facility] 2017-04-21 2017-04-21 Outpatient [facility] [id number] [place] 09:03:33 09:03:33 Health 2017-04-21 2017-04-21 Outpatient [facility] [id number] [place] 00:00:00 00:00:00 [facility] 2017-04-19 2017-04-19 Outpatient [facility] [id number] [place] 00:00:00 00:00:00 [facility] 2017-04-07 2017-04-08 Office Leticia Tariq [facility] [id number] [place] 00:00:00 00:00:00 Visit Reba Membreno 22732 [facility] ty [facility] 2017-04-07 2017-04-07 Outpatient [facility] [id number] [place] 16:09:19 16:09:19 Health 2017-03-29 2017-03-29 Outpatient [facility] [id number] [place] 16:47:01 16:47:01 Health 2017-03-29 2017-03-29 Outpatient [facility] [id number] [place] 14:39:27 14:39:27 Health 2017-03-22 2017-03-28 Office Tati Villasenor [facility] [id number] [place] 00:00:00 00:00:00 Visit Sean Shankaris 73638 [facility] Laci Bustosera [facility] 2017-03-25 2017-03-25 Outpatient [facility] [id number] [place] 10:02:10 10:02:10 Health 2017-03-25 2017-03-25 Outpatient [facility] [id number] [place] 08:20:34 08:20:34 Health 2017-03-23 2017-03-23 Outpatient [facility] [id number] [place] 10:46:35 10:46:35 Health 2017-03-14 2017-03-14 Emergency [facility] [id number] [place] 19:37:44 19:37:44 Health 2017-03-04 2017-03-04 Outpatient [facility] [id number] [place] 10:47:37 10:47:37 Health 2017-03-04 2017-03-04 Outpatient [facility] [id number] [place] 08:15:19 08:15:19 Health 2017-03-02 2017-03-02 Outpatient [facility] [id number] [place] 07:59:51 07:59:51 Health 2017-02-23 2017-02-23 Outpatient [facility] [id number] [place] 12:44:39 12:44:39 Health 2017-02-23 2017-02-23 Outpatient [facility] [id number] [place] 10:54:11 10:54:11 Health 2017-02-17 2017-02-17 Emergency [facility] [id number] [place] 00:15:09 00:15:09 Health 2017-02-16 2017-02-16 Emergency [facility] [id number] [place] 22:27:01 22:27:01 Health 2017-01-20 2017-01-20 Outpatient [facility] [id number] [place] 08:23:21 08:23:21 Health 2017-01-15 2017-01-15 Outpatient [facility] [id number] [place] 09:19:52 09:19:52 Health 2017-01-15 2017-01-15 Outpatient [facility] [id number] [place] 07:59:16 07:59:16 Health 2016-12-29 2016-12-29 Office Camila Henderson [facility] 3 [id number] [place] 00:00:00 00:00:00 Visit Jose Shankar 475[address] [facility] 2016-12-15 2016-12-15 Office Tariq Kelly [facility] [id number] [place] 00:00:00 00:00:00 Visit Reba Membreno 75109 [facility] 2016-12-01 2016-12-01 Office Leticia, Tariq [facility] [id number] [place] 00:00:00 00:00:00 Visit Ronal Benjamin [id number] [facility] 2016-11-16 2016-11-16 Office Leticia, Tariq [facility] [id number] [place] 00:00:00 00:00:00 Visit Reba Membreno 17139 [facility] 2016-10-29 2016-10-29 Office Natasha Byrd [facility] [id number] [place] 00:00:00 00:00:00 Visit Shelley Meng 612 01 [facility] 2016-10-16 2016-10-16 Office Tariq Kelly [facility] [id number] [place] 00:00:00 00:00:00 Visit Cindy Ferrer [id number] [facility] Romina Mcghee Ronal Benjamin [facility] Results Test Description Test Time Test Comments Results Result Comments Source very low density lipoproteins 2021-09-18 12:33:00 Test Item Value Reference Range Interpretation Comme nts very low density lipoproteins (test code = 2090-7) 70 mg/dL 5-4 0 [facility] [id number] 12:33:00 Test Item Value Reference Range Interpretation Comments HDL cholesterol, serum (test code = 41 mg/dL >39 2084-9) [facility], serum, [id number] 12:33:00 Test Item Value Reference Range Interpretation Comments triglyceride, serum, fasting (test 424 mg/dL 0-149 H code = 2571-8) [facility]cholesterol, [id number] 12:33:00 Test Item Value Reference Range Interpretation Comments cholesterol, serum (test code = 203 mg/dL 100-199 H 2092-3) [facility] Centeralanine aminotransferase (SGPT), [id number] 12:33:00 Test Item Value Reference Range Interpretation Comments alanine aminotransferase (SGPT), serum 99 1/L 0-32 H (test code = 1742-6) [facility] Centeraspartate aminotransferase (SGOT), ilaoz5243-07-05 12:33:00 Test Item Value Reference Range Interpretation Comments aspartate aminotransferase (SGOT), 109 1/L 0-40 H serum (test code = 1920-8) [facility] Centeralkaline phosphatase, [id number] 12:33:00 Test Item Value Reference Range Interpretation Comments alkaline phosphatase, serum (test code 67 1/L 44-121 = 1783-0) [facility]bilirubin, serum, [id number] 12:33:00 Test Item Value Reference Range Interpretation Comments bilirubin, serum, total (test code <0.2 mg/dL 0.0-1.2 = 1975-2) [facility] Centeralbumin/globulin ratio, [id number] 12:33:00 Test Item Value Reference Range Interpretation Comments albumin/globulin ratio, 1.9 (unknown unit) 1.2-2.2 serum (test code = 1759-0) [facility] Centerglobulin, [id number] 12:33:00 Test Item Value Reference Range Interpretation Comments globulin, serum (test code 2.5 (unknown unit) 1.5-4.5 = 2336-6) [facility] Centeralbumin, [id number] 12:33:00 Test Item Value Reference Range Interpretation Comments albumin, serum (test code = 1751-7) 4.7 g/dL 3.8-4.8 [facility] Healthprotein, total, [id number] 12:33:00 Test Item Value Reference Range Interpretation Comments protein, total, serum (test code = 7.2 g/dL 6.0-8.5 2885-2) [facility] Centercalcium, [id number] 12:33:00 Test Item Value Reference Range Interpretation Comments calcium, serum (test code = 1999-) 9.9 mg/dL 8.7-10.2 [facility] Centercarbon dioxide, venous [id number] 12:33:00 Test Item Value Reference Range Interpretation Comments carbon dioxide, venous blood (test 25 mmol/L code = 2027-1) [facility] Centerchloride, [id number] 12:33:00 Test Item Value Reference Range Interpretation Comments chloride, serum (test code = 101 mmol/L 96-106 5-0) [facility] Centerpotassium, lukrz4105-20-01 12:33:00 Test Item Value Reference Range Interpretation Comments potassium, serum (test code = 4.7 mmol/L 3.5-5.2 2823-3) [facility] Centersodium, [id number] 12:33:00 Test Item Value Reference Range Interpretation Comments sodium, serum (test code = 2951-2) 140 mmol/L 134-144 [facility] Centerurea nitrogen/creatinine ratio, [id number] 12:33:00 Test Item Value Reference Range Interpretation Comments urea nitrogen/creatinine 15 (unknown unit) 9-23 ratio, serum (test code = 3097-3) [facility] HealtheGFR if [id number] 12:33:00 Test Item Value Reference Range Interpretation Comments eGFR if 125 mL/min/{1.73 m2} >59 (test code = 94828-4) [facility] CenterEstimated Glomerular Filtration Rate (calc)2021-09-18 12:33:00 Test Item Value Reference Range Interpretation Comments Estimated Glomerular 109 mL/min/{1.73 m2} >59 Filtration Rate (calc) (test code = 44252-8) [facility] Centercreatinine, [id number] 12:33:00 Test Item Value Reference Range Interpretation Comments creatinine, serum (test code = 0.59 mg/dL 0.57-1.00 2160-0) [facility] Healthurea nitrogen, [id number] 12:33:00 Test Item Value Reference Range Interpretation Comments urea nitrogen, blood (test code = 9 mg/dL 6-24 3094-0) [facility] Centerblood glucose, boahar3974-19-00 12:33:00 Test Item Value Reference Range Interpretation Comments blood glucose, random (test code = 240 mg/dL 65-99 H 2339-0) [facility] Centerimmature granulocytes, percentage of total cells, blood 2021-09-18 12:33:00 Test Item Value Reference Range Interpretation Comments immature granulocytes, percentage of 1 % total cells, blood (test code = 74067-8) [facility] Centerbasophil count, [id number] 12:33:00 Test Item Value Reference Range Interpretation Comments basophil count, absolute (test 0.1 x10E3/uL 0.0-0.2 code = 73905-4) [facility] CenterEosinophil Absolute [id number] 12:33:00 Test Item Value Reference Range Interpretation Comments Eosinophil Absolute Count (test 0.3 X10E3/UL 0.0-0.4 code = 20046-5) [facility] Centermonocyte count, blood, ubuhqpdup5673-82-59 12:33:00 Test Item Value Reference Range Interpretation Comments monocyte count, blood, automated 0.5 X10E3/UL 0.1-0.9 (test code = 742-7) [facility] Centerlymphocyte count, blood, ufabsxkjx7920-93-74 12:33:00 Test Item Value Reference Range Interpretation Comments lymphocyte count, blood, 2.5 X10E3/UL 0.7-3.1 automated (test code = 731-0) [facility] CenterAbsolute Vzmnpvalffw9907-68-58 12:33:00 Test Item Value Reference Range Interpretation Comments Absolute Neutrophils (test code 4.4 X10E3/UL 1.4-7.0 = 66992-0) [facility] Centerbasophils as percent of blood sozrfylsqq4419-16-20 12:33:00 Test Item Value Reference Range Interpretation Comments basophils as percent of blood 1 % leukocytes (test code = 707-0) [facility] Healtheosinophils as percent of blood fvydbniewt5283-72-47 12:33:00 Test Item Value Reference Range Interpretation Comments eosinophils as percent of blood 4 % leukocytes (test code = 713-8) [facility] Healthmonocytes as percent of blood hmnyqjsmce1503-02-30 12:33:00 Test Item Value Reference Range Interpretation Comments monocytes as percent of blood 7 % leukocytes (test code = 5905-5) [facility] Centerlymphocytes as percent of blood xjlqhxgvnv4502-37-47 12:33:00 Test Item Value Reference Range Interpretation Comments lymphocytes as percent of blood 32 % leukocytes (test code = 736-9) [facility] Centerneutrophils as percent of blood vjsdxxkrkh0664-43-91 12:33:00 Test Item Value Reference Range Interpretation Comments neutrophils as percent of blood 55 % leukocytes (test code = 770-8) [facility] Centerplatelet [id number] 12:33:00 Test Item Value Reference Range Interpretation Comments platelet count (test code = 244 X10E3/UL 150-450 777-3) [facility] Centerred blood cell distribution pxrbn5896-93-07 12:33:00 Test Item Value Reference Range Interpretation Comments red blood cell distribution width 14.3 % 11.7-15.4 (test code = 788-0) [facility] corpuscular hemoglobin concentration, [id number] 12:33:00 Test Item Value Reference Range Interpretation Comments mean corpuscular hemoglobin 31.3 G/DL 31.5-35.7 L concentration, RBC (test code = 786-4) [facility] corpuscular hemoglobin, [id number] 12:33:00 Test Item Value Reference Range Interpretation Comments mean corpuscular hemoglobin, RBC 27.4 pg 26.6-33.0 (test code = 785-6) [facility] corpuscular volume, [id number] 12:33:00 Test Item Value Reference Range Interpretation Comments mean corpuscular volume, RBC (test code 88 fL 79-97 = 787-2) [facility] Centerhematocrit, [id number] 12:33:00 Test Item Value Reference Range Interpretation Comments hematocrit, blood (test code = 4544-3) 39.9 % 34.0-46.6 [facility] Centerhemoglobin, [id number] 12:33:00 Test Item Value Reference Range Interpretation Comments hemoglobin, blood (test code = 12.5 g/dL 11.1-15.9 718-7) [facility] Centererythrocyte (RBC) [id number] 12:33:00 Test Item Value Reference Range Interpretation Comments erythrocyte (RBC) count (test 4.56 X10E6/UL 3.77-5.28 code = 789-8) [facility] Centerleukocyte count, sjpsi7853-07-37 12:33:00 Test Item Value Reference Range Interpretation Comments leukocyte count, blood (test 7.9 X10E3/UL 3.4-10.8 code = 6690-2) [facility] Centerhemoglobin A1C, blood, as % of total idwyizxdvf5295-47-03 12:33:00 Test Item Value Reference Range Interpretation Comments hemoglobin A1C, blood, as % of total 9.5 % 4.8-5.6 H hemoglobin (test code = 4548-4) [facility] CenterLDL cholesterol, [id number] 12:33:00 Test Item Value Reference Range Interpretation Comments LDL cholesterol, serum (test code = 92 mg/dL 0-99 9-1) [facility] CenterSARS-CoV-2 (COVID-19) RNA [Presence] in Respiratory specimen by ROYA with probe ipyomczip0379-63-31 12:33:06 Test Item Value Reference Range Interpretation Comments SARS-CoV-2 (COVID-19) RNA Not detected Not-Detected [Presence] in Respiratory specimen by ROYA with probe detection (test code = 91465-4) specific gravity, [id number] 15:29:37 Test Item Value Reference Range Interpretation Comments specific gravity, urine 1.020 (unknown unit) (test code = 5811-5) [facility] CenterpH, urine, qwtsjmrejbydgvfy4678-93-85 15:29:37 Test Item Value Reference Range Interpretation Comments pH, urine, semiquantitative 5.0 (unknown (test code = 5803-2) unit) [facility] Centerglucose, urine, dtbedzgupxpfjndo5741-84-55 15:29:37 Test Item Value Reference Range Interpretation Comments glucose, urine, semiquantitative negative (test code = 5792-7) [facility] Healthbilirubin, jrcie2626-94-70 15:29:37 Test Item Value Reference Range Interpretation Comments bilirubin, urine (test code = negative 5770-3) [facility] Healthketones, urine, by test [id number] 15:29:37 Test Item Value Reference Range Interpretation Comments ketones, urine, by test strip (test negative code = 5797-6) [facility] Centerprotein, urine, semiquantitative (dipstick)2018-08-03 15:29:37 Test Item Value Reference Range Interpretation Comments protein, urine, semiquantitative negative (dipstick) (test code = 1753-3) [facility] Centerurobilinogen, urine, semiquantitative (dipstick) 2018-08-03 15:29:37 Test Item Value Reference Range Interpretation Comments urobilinogen, urine, negative semiquantitative (dipstick) (test code = 5818-0) [facility] Centernitrite, urine, gwecbqxtzkswxzmp9749-90-40 15:29:37 Test Item Value Reference Range Interpretation Comments nitrite, urine, semiquantitative negative (test code = 5802-4) [facility] Centerleukocyte esterase, urine, by pzzhughh8322-86-09 15:29:37 Test Item Value Reference Range Interpretation Comments leukocyte esterase, urine, by negative dipstick (test code = 5799-2) [facility] Healthappearance, [id number] 15:29:37 Test Item Value Reference Range Interpretation Comments appearance, urine (test code = 5767-9) clear [facility] Healthurine [id number] 15:29:37 Test Item Value Reference Range Interpretation Comments urine color (test code = 5778-6) yellow [facility] Centerblood in urine (hemoglobin) by uqrkdkkm1806-91-29 15:29:37 Test Item Value Reference Range Interpretation Comments blood in urine (hemoglobin) by negative dipstick (test code = 4998) [facility] Centerthyroid stimulating hormone, [id number] 15:59:00 Test Item Value Reference Range Interpretation Comments thyroid stimulating hormone, 1.320 u[IU]/mL 0.450-4.500 serum (test code = 3016-3) [facility] Centerfollicle stimulating hormone, vsyaf1268-60-27 15:59:00 Test Item Value Reference Range Interpretation Comments follicle stimulating hormone, 2.8 m[IU]/mL serum (test code = 2286-3) [facility] CenterNeisseria gonorrhoeae DNA fuvvo8461-77-00 15:53:00 Test Item Value Reference Range Interpretation Comments Neisseria gonorrhoeae DNA probe Negative Negative (test code = 26430-2) [facility] Centerchlamydia DNA [id number] 15:53:00 Test Item Value Reference Range Interpretation Comments chlamydia DNA probe (test code = Negative Negative 87925-4) [facility] Centertrichomonas vaginalis, atkre7309-61-91 15:53:00 Test Item Value Reference Range Interpretation Comments trichomonas vaginalis, urine (test Negative Negative code = 5813-1) [facility] Centerblood glucose, rjpjjn8830-71-07 13:59:05 Test Item Value Reference Range Interpretation Comments blood glucose, random (test code = 109 mg/dL 2339-0) [facility] Centerinfluenza B virus ggpgmtx2758-50-45 10:46:49 Test Item Value Reference Range Interpretation Comments influenza B virus antigen (test code negative = 07932) [facility] Centerinfluenza virus A hazumcs1763-52-55 10:46:49 Test Item Value Reference Range Interpretation Comments influenza virus A antigen (test code negative = 3413) [facility]
[2022-03-29 15:24] LABS: Urine Blood Negative (Negative); Urine Glucose 3+ (Negative); Urine Protein Negative (Negative); Urine pH 6.5 (5.0-7.0)
[2022-03-29] MEDS ORDERED: ONDANSETRON 4 MG/2 ML VIAL ONE (15:50)
[2022-03-29] MEDS ORDERED: KETOROLAC 30 MG/ML INJ ONE (16:00)
[2022-03-29 16:02] LABS: Absolute Lymphocytes (CBC) 2.9 K/uL (0.7-4.9); Hematocrit 37.3 % (36.0-45.0); Lymphocytes % 40.1 % (15.3-44.8); RBC Red Blood Cell Count 4.46 M/uL (3.86-4.86)
[2022-03-29 16:16] LABS: Albumin 3.8 g/dL (3.4-5.0); Bilirubin Total 0.1 mg/dL (0.2-1.0); Potassium 4.1 mmol/L (3.5-5.1); Protein, Total 7.5 g/dL (6.4-8.2)
[2022-03-29] MEDS ORDERED: DICYCLOMINE HCL 10 MG CAP ONE (16:53)
--- NOTE | 2022-03-29 17:04 | RAD REPORT ---
EXAM DESCRIPTION: CTAbdomen Pelvis W Contrast - 03/29/2022 4:38 pm CLINICAL HISTORY: Abdominal pain. Abdominal pain, acute, nonlocalized COMPARISON: No comparisons TECHNIQUE: Biphasic CT imaging of the abdomen and pelvis was performed with 100 ml non-ionic IV cont rast. All CT scans are performed using dose optimization technique as appropriate and may include automated exposure control or mA/KV adjustment according to patient size. FINDINGS: The lung bases are clear. Hepatomegaly with mild diffuse fatty liver. The spleen, pancreas, adrenal glands are normal. Stones a re present in both kidneys without hydronephrosis. No bowel obstruction, free air, free fluid or abscess. Significant stool is retained in the colon. Th e appendix is normal. No evidence of significant lymphadenopathy. No suspicious bony findings. IMPRESSION: Nonobstructed calculi are present in both kidneys. Prominent fatty liver with mild hepatomegaly. Constipation.
--- NOTE | 2022-03-29 17:10 | ER ---
Nurse's Notes [facility] Name: Sera Mascorro Age: 46 yrs Sex: Female : 1975 Arrival Date: 03/29/2022 Time: 14:59 Bed 20 Private MD: Diagnosis: Flank Pain Presentation: 03/29 15:14 Chief complaint: Patient states: leilani flank pain that began yesterday, pt reports hx of aa5 kidney stones. Pt reports nausea, denies vomiting. Coronavirus screen: nausea. Ebola Screen: No symptoms or risks identified at this time. Initial Sepsis Screen: Does the patient meet any 2 criteria? No. Patient's initial sepsis screen is negative. Does the patient have a suspected source of infection? No. Patient's initial sepsis screen is negative. Risk Assessment: Do you want to hurt yourself or someone else? Patient reports no desire to harm self or others. Onset of symptoms was February 2022. 15:14 Method Of Arrival: Ambulatory aa5 15:14 Acuity: ALFONSO 3 aa5 Historical: - Allergies: 15:15 Morphine; aa5 - PMHx: 15:15 Anxiety; Bipolar disorder; depressive disorder; diabetes mellitus; Gastroparesis; aa5 Kidney stone; - PSHx: 15:15 Adenoid excision; Carpel Tunnel; hysterectomy; R Leg surgery; Tonsillectomy; aa5 Lithotripsy; Kidney stones removed; Renal stents; - Immunization history:: Adult Immunizations unknown. - Social history:: Smoking status: Patient denies any tobacco usage or history of. Screenin:21 Abuse screen: Denies threats or abuse. Denies injuries from another. Nutritional alex screening: No deficits noted. Tuberculosis screening: No symptoms or risk factors identified. Fall Risk None identified. Assessment: 15:21 General: Appears in no apparent distress. Behavior is calm, cooperative. Pain: alex Complains of pain in back and abdomen. : Reports pain urgency, urinary frequency. Vital Signs: 15:16 BP 99 / 67; Pulse 96; Resp 18 S; Temp 97.6(O); Pulse Ox 96% on R/A; Weight 86.18 kg aa5 (R); Height 5 ft. 2 in. (157.48 cm) (R); 16:23 BP 96 / 68; Pulse 88; Resp 17; Pulse Ox 92% on R/A; alex 15:16 Body Mass Index 34.75 (86.18 kg, 157.48 cm) aa5 ED Course: 14:59 Patient arrived in ED. am2 15:14 Arm band placed on. aa5 15:15 Triage completed. aa5 15:18 Tori Angel, RN is Primary Nurse. alex 15:21 Bed in low position. alex 15:21 No provider procedures requiring assistance completed. alex 15:22 Nolan Young PA is PHCP. [facility] 15:22 Omi Campos MD is Attending Physician. m 16:40 CT Abd/Pelvis - IV Contrast Only In Process Unspecified. EDMS 17:30 IV discontinued, intact, Pressure dressing applied. alex Administered Medications: 15:59 Drug: Zofran (Ondansetron) 4 mg Route: IVP; Site: right antecubital; alex 15:59 Follow up: Response: No adverse reaction alex 15:59 Drug: Ketorolac 30 mg Route: IVP; Site: right antecubital; alex 15:59 Follow up: Response: No adverse reaction alex 16:52 Drug: Dicyclomine 20 mg Route: PO; alex 16:52 Follow up: Response: No adverse reaction alex Outcome: 17:10 Discharge ordered by . [facility] 17:29 Discharged to Rehab Facility alex 17:29 Discharged to [facility] for pt to be picked up. spoke to Christie WIRE SETTER 17:29 Condition: good 17:29 Discharge instructions given to patient, Prescriptions given X 2. 17:30 Patient left the ED. alex Signatures: Dispatcher [employer] EDMS Nolan Young PA PA Verna Saha, RN RN aa5 Anusha Lockhart am2 Tori Angel, WAGNER RN alex Corrections: (The following items were deleted from the chart) 15:18 15:16 Pulse 96bpm; Resp 18bpm; Spontaneous; Pulse Ox 96% RA; Temp 97.6F Oral; 86.18 kg aa5 Reported; Height 5 ft. 2 in. Reported; BMI: 34.7; aa5
--- NOTE | 2022-03-29 17:10 | EDPHYS ---
Physician Documentation [facility] Name: Sera Mascorro Age: 46 yrs Sex: Female : 1975 Arrival Date: 03/29/2022 Time: 14:59 Bed 20 Private MD: ED Physician Omi Campos HPI: 03/29 15:46 This 46 yrs old Female presents to ER via Ambulatory with complaints of Low Back Pain, jmm Flank Pain. 15:46 The patient presents with pain that is acute. The pain radiates to the suprapubic area jmm and right lower quadrant. Onset: The symptoms/episode began/occurred gradually. This is a 46 year old female with a history of bipolar, depression, dm that presents to the ED with complaints of right flank pain beginning approx 3 days ago. Complains of nausea. Denies diarrhea. Patient feels similar to previous kidney stones. . Historical: - Allergies: 15:15 Morphine; aa5 - PMHx: 15:15 Anxiety; Bipolar disorder; depressive disorder; diabetes mellitus; Gastroparesis; aa5 Kidney stone; - PSHx: 15:15 Adenoid excision; Carpel Tunnel; hysterectomy; R Leg surgery; Tonsillectomy; aa5 Lithotripsy; Kidney stones removed; Renal stents; - Immunization history:: Adult Immunizations unknown. - Social history:: Smoking status: Patient denies any tobacco usage or history of. ROS: 15:46 Constitutional: Negative for fever, chills, and weight loss, Cardiovascular: Negative jmm for chest pain, palpitations, and edema, Respiratory: Negative for shortness of breath, cough, wheezing, and pleuritic chest pain. 15:46 Abdomen/GI: Positive for abdominal pain, nausea. 15:46 Back: Positive for flank pain. 15:46 All other systems are negative. Exam: 15:46 Constitutional: This is a well developed, well nourished patient who is awake, alert, jmm and in no acute distress. Head/Face: atraumatic. Eyes: EOMI, no conjunctival erythema appreciated ENT: Moist Mucus Membranes Neck: Trachea midline, Supple Chest/axilla: Normal chest wall appearance and motion. Cardiovascular: Regular rate and rhythm. No edema appreciated Respiratory: Normal respirations, no respiratory distress appreciated 15:46 Back: Normal ROM Skin: General appearance color normal MS/ Extremity: Moves all extremities, no obvious deformities appreciated, no edema noted to the lower extremities Neuro: Awake and alert Psych: Behavior is normal, Mood is normal, Patient is cooperative and pleasant 15:46 Abdomen/GI: Inspection: obese Bowel sounds: normal, Palpation: soft, moderate abdominal tenderness, in the right upper quadrant and right lower quadrant. Vital Signs: 15:16 BP 99 / 67; Pulse 96; Resp 18 S; Temp 97.6(O); Pulse Ox 96% on R/A; Weight 86.18 kg aa5 (R); Height 5 ft. 2 in. (157.48 cm) (R); 16:23 BP 96 / 68; Pulse 88; Resp 17; Pulse Ox 92% on R/A; alex 15:16 Body Mass Index 34.75 (86.18 kg, 157.48 cm) aa5 MDM: 15:39 Patient medically screened. [facility] 17:08 Data reviewed: vital signs, nurses notes. Counseling: I had a detailed discussion with elva the patient and/or guardian regarding: the historical points, exam findings, and any diagnostic results supporting the discharge/admit diagnosis, lab results, radiology results, the need for outpatient follow up, to return to the emergency department if symptoms worsen or persist or if there are any questions or concerns that arise at home. ED course: Patient is alert and non toxic in appearance in the ED. Patient advised to follow up with gi and otherwise given strict return precautions. patient underestood and agrees with the plan fo care. . 03/29 15:24 Order name: Urine Dipstick-Ancillary; Complete Time: 15:39 [facility] 03/29 15:45 Order name: CBC with Diff; Complete Time: 16:13 [facility] 03/29 15:45 Order name: CMP; Complete Time: 16:20 [facility] 03/29 15:45 Order name: Lipase; Complete Time: 16:20 [facility] 03/29 15:45 Order name: CT Abd/Pelvis - IV Contrast Only; Complete Time: 17:07 [facility] 03/29 15:45 Order name: IV Saline Lock; Complete Time: 15:59 [facility] 03/29 15:45 Order name: Labs collected and sent; Complete Time: 16:00 [facility] Administered Medications: 15:59 Drug: Zofran (Ondansetron) 4 mg Route: IVP; Site: right antecubital; alex 15:59 Follow up: Response: No adverse reaction alex 15:59 Drug: Ketorolac 30 mg Route: IVP; Site: right antecubital; alex 15:59 Follow up: Response: No adverse reaction alex 16:52 Drug: Dicyclomine 20 mg Route: PO; alex 16:52 Follow up: Response: No adverse reaction alex Disposition: 18:02 Co-signature as Attending Physician, Omi Campos MD I agree with the assessment and kdr plan of care. Disposition Summary: 03/29/22 17:10 Discharge Ordered Location: Home [facility] Condition: Stable jm Diagnosis - Flank Pain [facility] Followup: [facility] - With: Private Physician - When: 2 - 3 days - Reason: Recheck today's complaints, Continuance of care, Re-evaluation by your physician Discharge Instructions: - Discharge Summary Sheet jmm - Constipation, Adult jmm - Flank Pain, Adult m Forms: - Medication Reconciliation Form [facility] - Thank You Letter [facility] - Antibiotic Education [facility] - Prescription Opioid Use [facility] - Work release form eb Prescriptions: - orphenadrine citrate 100 mg Oral Tablet Sustained Release - take 1 tablet by ORAL route 2 times per day As needed; 20 tablet; Refills: 0, [facility] Product Selection Permitted - Colace 100 mg Oral Tablet - take 1 tablet by ORAL route every 12 hours; 14 tablet; Refills: 0, Product [facility] Selection Permitted Signatures: Dispatcher [employer] Omi Martinez MD MD kdr Mickail, Joel, PA PA jmm Calderon, Audri RN RN aa5 Tori Angel RN RN alex
[2022-03-29 18:34] VITALS: TEMP 97.6
[2022-03-29 18:35] VITALS: BP 96/68; O2SAT 92
== END 2022-03-29 17:30 | disposition home or self-care (01) ==
LOC: ER 14:58
DX: R10.9 Unspecified abdominal pain (principal); E11.9 Type 2 diabetes mellitus without complications; Z88.5 Allergy status to narcotic agent
CPT/HCPCS: 85025; 36415; 81003; 83690; 80053; 74177; 96375; 96374; 99283; Q9967; J2405

== ENCOUNTER 2023-02-09 23:29 | Emergency (ER) | payer OTHER ==
--- OUTSIDE RECORDS SUMMARY | 2023-02-09 23:37 | XMS REPORT | Continuity of Care Document ---
:1975 Author Organization [facility] t Address [address] [facility] José Antonio. [address] [place] [address] Care Team Providers Name Role Phone Lisseth MUKHERJEE, Suresh Saenz Primary Care Physician [phone] lchaileyri Attending Clinician Unavailable Jalen DO, Jazmyne Juarez Attending Clinician Abdullahi PTJarek Attending Clinician Unavailable Andressa MUKHERJEE, Nuno Attending Clinician Huong Trinidad MA Attending Clinician Unavailable Lisseth MUKHERJEE, Suresh Saenz Attending Clinician [phone] [place]avan MUKHERJEE, Maurice Cherry Attending Clinician Justine Marie MA Attending Clinician Unavailable Hi MUKHERJEE, Elizabeth Corrales Attending Clinician Ezra Rodríguez APRN Attending Clinician [phone] Christina MUKHERJEE, Keren Attending Clinician Dada MUKHERJEE, Maria Teresa Attending Clinician Esteban MUKHERJEE, Bing Kennedy Attending Clinician Julai MUKHERJEE, Kim Santiago Attending Clinician [phone] Laurie GARCIA, Lesia Attending Clinician EVELYNE DAVID Attending Clinician Unavailable Nafisa Ireland MA Attending Clinician Unavailable [email or web address]_Bruno Attending Clinician Unavailable Felix Pelaez MD Attending Clinician Fredy Polo MD Attending Clinician Tariq Kelly Attending Clinician [phone] Janey Echols LMSW Attending Clinician Unavailable RAKAN BEARD Attending Clinician Unavailable Melvi Benjamin Attending Clinician Unavailable Darcy Mejia Attending Clinician Unavailable Reba Membreno Attending Clinician Unavailable Rosa Elena Guido Attending Clinician Unavailable Willian Lawson Attending Clinician Unavailable Dilcia Zhang Attending Clinician Unavailable Sweta Holder Attending Clinician [phone] Henna Phillip Attending Clinician Unavailable Yazmin Rasmussen Attending Clinician Unavailable Cindy Eden Attending Clinician Unavailable Ariane Cottrell Attending Clinician [phone] Kam Padilla Attending Clinician Unavailable MD RICARDO ROSENBERG Attending Clinician Unavailable RICARDO ROSENBERG Attending Clinician Unavailable Linn Mathias Attending Clinician Unavailable Leigh Ann Moyer Attending Clinician Unavailable ANDREW YUAN Attending Clinician Unavailable Kirsten Traore Attending Clinician [phone] MIC TSAI Attending Clinician Unavailable Jena Posey Attending Clinician Unavailable Yana Galeano Attending Clinician Unavailable Mic Raya Attending Clinician [phone] Naila Roberts Attending Clinician [phone] Kirsten Lovett Attending Clinician Unavailable Status, Fax Attending Clinician Unavailable Dannielle Torrez Attending Clinician Unavailable Mary Mccabe Attending Clinician Unavailable Andrew Zavaleta Attending Clinician [phone] Alvin Pacheco Attending Clinician [phone] Albert Lawson Attending Clinician Unavailable Anusha García Attending Clinician Unavailable Marquez Jasmine Attending Clinician Unavailable Rosa Elena Hansen Attending Clinician Unavailable Tati Villasenor Attending Clinician [phone] Klarissa Lawson LCSW Attending Clinician [phone] Yaritza Bailey Attending Clinician Unavailable Leyda Mackenzie Attending Clinician Unavailable Mayda Robledo MD Attending Clinician [phone] Alexandra Eden Attending Clinician Unavailable Laura Cerna Attending Clinician Unavailable Sun Med[facility]her[facility] Alina Attending Clinician [phone] Rosi Eden Attending Clinician Unavailable Heydi Spann Attending Clinician Unavailable Luis Prabhakar Attending Clinician Unavailable Rosa Elena Tafoya Attending Clinician [phone] Sandhya Muro Attending Clinician Unavailable Jose Shankar Attending Clinician Unavailable Angelita Garza Attending Clinician Unavailable Olivia Hadley Attending Clinician Unavailable Tamika Eden Attending Clinician Unavailable Lyly Solorio Attending Clinician Unavailable Cheyanne Gutierrez Attending Clinician Unavailable Ewa Bustos Attending Clinician [phone] Rakesh Romero Attending Clinician Unavailable Milind Key Attending Clinician Unavailable Camila Henderson Attending Clinician [phone] Philip Drew Attending Clinician Unavailable Omaira Byrd Attending Clinician Unavailable Gilma Null Attending Clinician Unavailable Ronal Benjamin Attending Clinician Unavailable Natasha Byrd Attending Clinician [phone] Shelley Meng Attending Clinician Unavailable Romina Mcghee Attending Clinician Unavailable Kraig Doran Attending Clinician Unavailable Maryuri Randall Attending Clinician Unavailable MARIA TERESA SHETTY Admitting Clinician Unavailable MD MAYDA KING Admitting Clinician Unavailable _WHCBAY_Crate_E Admitting Clinician Unavailable MD TAE ELENA Admitting Clinician Unavailable Andressa MUKHERJEE, Nuno Unavailable Leticia MUKHERJEE, Tariq Unavailable [phone] Junior MUKHERJEE, Alvin Deutsch Unavailable [phone] Meena MUKHERJEE, Mayda Unavailable [phone] Hamilton MUKHERJEE, Tati Unavailable [phone] Milind Key DO Unavailable Unavailable Rochelle PATTERSONP, Natasha Unavailable [phone] Payers Payer Name Policy Type Policy Number Effective Date Expiration Date S evans [facility] P [id number] 2022 Dual Complete 00:00:00 $15 F [id number] 2012 00:00:00 [facility] [id number] COMPLETE (MEDICARE REPLACEMENT HMO) [facility] [id number] 2019 2020 [facility] Dual Complete 00:00:00 00:00:00 [facility] [id number] 2019 2019 [facility] Dual Complete 00:00:00 00:00:00 [facility] CI [id number] 2018 2019 [facility] Dual Complete 00:00:00 00:00:00 [facility] NONE 2017 2017 [facility] Dual Complete 00:00:00 00:00:00 [facility] CI [id number] 2016 2017 [facility] Dual Complete 00:00:00 00:00:00 [facility] Problems Condition Condition Condition Status Onset Resolution Last Treating Co mments Source Name Details Category Date Date Treatment Clinician Date Cervical Cervical Disease Active 2021-11 Metho di radiculopa radiculopa 01-25 st thy thy 00:00: Hospita 00 l Left arm Left arm Disease Active 2021-11 Metho di numbness numbness 01-25 st 00:00: Hospita 00 l INSOMNIA Condition Active 2021-112022-11-09 Kvng [place] DISORDER, 2 11:09:50 zo, Jacin to RECURRENT 00:00: Nuno Fami ly 00 Practic e BIPOLAR Condition Active 2022-07-21 Leoz-Hannah [place] AND 07-21 14:46:20 zo, Tk RELATED 00:00: Nuno Family DISORDER, 00 Practic UNSPECIFIE e D STIMULANT Condition Active 2022-07-21 Leoz-Hannah [place] USE 07-21 14:46:20 zo, Tk DISORDER, 00:00: Nuno Fami ly COCAINE, 00 Practic MODERATE e High risk Condition Active 2022-04-22 Atri, [place] medication 06-26 14:37:44 Tariq Ja genesis management 00:00: Family 00 Practic e Bipolar I Condition Active 2022-04-22 Atri, [place] dsord 03-26 14:46:46 Tariq Jacint o ,most 00:00: Family recent 00 Practic epsd, e unspec OAB OAB Disease Active Methodi (overactiv (overactiv 2 st e bladder) e bladder) 00:00: Ho spita 00 l Urge Urge Disease Active Methodi urinary urinary 01-21 st incontinen incontinen 00:00: Ho spita ce ce 00 l SIRS SIRS Disease Active Methodi (systemic (systemic 07-09 st inflammato inflammato 00:00: Ho spita ry ry 00 l response response syndrome) syndrome) Kidney Kidney Disease Active Overview: Method i stone stone [address] 00:00: g of this Hospita 00 note l might be different from the original. Added automatic ally from request for surgery [id number] Suicidal Suicidal Disease Active Metho di ideation ideation 01-20 st 00:00: Hospita 00 l Cocaine Condition Active 2021-02-28 Atri, Sa n abuse, -11 14:18:10 Tariq Jacint o continuous 00:00: Family 00 Practic e Pelvic Pelvic Disease Active Methodi pain pain 08-09 st 00:00: Hospita 00 l Yeast Condition Active 2021-02-28 Junior, Sa n infection 08-03 14:18:09 Alvin Nevarez to 00:00: Family 00 Practic e Allergic Condition Active 2016-112021-02-28 Jaylen Robledo rhinitis 01-17 14:18:09 Mayda Jacint o 00:00: Family 00 Practic e Genital Condition Active 2016-112021-02-28 Fernanda Pacheco an herpes 0-06 14:18:09 Alvin A Tk 00:00: Family 00 Practic e Leukorrhea Condition Active 2016-112021-02-28 Jaylen Pacheco 0-06 14:18:10 Alvin A Tk 00:00: Family 00 Practic e Hot Condition Active 2016-112021-02-28 Junior, n flashes 0-06 14:18:10 Alvin A Tk 00:00: Family 00 Practic e History of Condition Active 2016-112021-02-28 Jaylen Pacheco ovarian 0-06 14:18:10 Alvin A Tk cyst 00:00: Family 00 Practic e Pelvic Condition Active 2016-112021-02-28 Junior, Sa n pain 0-06 14:18:10 Alvin A Tk 00:00: Family 00 Practic e Esophagiti Condition Active 2021-02-28 Hamilton [place] s 8 14:18:10 Tati Tk 00:00: Family 00 Practic e Noncardiac Condition Active 2021-02-28 Hamilton, [place] chest pain 8 14:18:10 Tati Melvin into 00:00: Family 00 Practic e Chest pain Chest pain Disease Active M ethodi 04-27 st 00:00: Hospita 00 l Other Condition Active 2021-02-28 Hamilton n ovarian 24 14:18:10 Tati Jacint o cyst, left 00:00: Family side 00 Practic e Back pain Condition Active 2021-02-28 Hamilton, [place] 424 14:18:10 Tati Tk 00:00: Family 00 Practic e Recurrent Condition Active 2021-02-28 Jaylen Key kidney 12-29 14:18:10 Kinuyo Tk stones 00:00: Family 00 Practic e Hx of Condition Active 2015-112021-02-28 angie Byrd has [place] hysterecto 2 14:18:10 Natasha ovaries Ja genesis my, 00:00: Family partial 00 Practic e Diabetes Condition Active 2015-112021-02-28 Jaylen Byrd mellitus, 12-30 14:18:10 Natasha Rosaura nto type II 00:00: Family 00 Practic e Generalize Condition Active 2015-112021-02-28 Leticia [place] d anxiety 12-16 14:18:10 Tariq Melvin into disorder 00:00: Family 00 Practic e Bipolar 1 Condition Active 2015-112021-02-28 LeticiaJaylen disorder, 12-16 14:18:10 Tariq Jac into depressed 00:00: Family 00 Practic e History of Past Illness Condition Condition Condition Status Onset Resolution Last Treating Co mments Source Name Details Category Date Date Treatment Clinician Date Acute Condition Inactiv 2016-112017-11-30 2017-11-16 Jaylen Robledo frontal e 01-17 00:00:00 15:30:19 Mayda Nevarez to sinusitis 00:00: Family 00 Practic e URI Condition Inactiv 2015-112017-03-22 2017-03-28 Jaylen Villasenor e 12-30 00:00:00 14:11:26 Tati Charlesin to 00:00: Family 00 Practic e BIPOLAR I Condition Inactiv 2016-10-16 2016-10-16 Jaylen Kelly DSORD, e 05-16 00:00:00 12:01:36 Tariq Kaplan nto MOST 00:00: Family RECENT 00 Practic EPSD, e MIXED NOS Allergies, Adverse Reactions, Alerts Allergy Allergy Status Severity Reaction(s) Onset Inactive Treating Comm ents Source Name Type Date Date Clinician Other Propensi Active Plastic Methodi ty to 8-11 tape, Pt st adverse 00:00: itch Hospita reaction 00 l s Morphine Propensi Active Itching 2017-11 Metho di ty to 2-08 st adverse 00:00: Hospita reaction 00 l s to drug Latex Propensi Active Rash Methodi ty to 7-13 st adverse 00:00: Hospita reaction 00 l s to drug Family History Family Member Diagnosis Comments Start Date Stop Date Source Natural father [facility] mother Diabetes [facility] mother GERD [facility] mother Heart disease [facility] mother Hyperlipidemia [facility] mother Irritable bowel [facility] Natural sister Breast cancer [facility] Social History Social Habit Start Date Stop Date Quantity Comments Source Alcohol intake 2023-01-05 2023-01-05 Ex-drinker Shinto 00:00:00 00:00:00 (finding) [facility] social history E&M 2022-11-09 2022-11-09 . Pt has [facility] 09:26:17 09:26:17 two daughters Health ages 30 and 24. Pt was adopted and her adoptive parents are . Pt has 6 biologic siblings and two adoptive siblings. . Not homeless. Born in [facility]. city: [facility]. state: [place]. Pt lives with daughter who is 24 as of 2021. One mental telepathist at [employer] and the other on disability due to mental health condition. Close to both daughters. Reports she has a few friends in [place], [place], she lives in [place] but used to live in [place]. Close to one sister and 2 brothers. . Employment status: Yes. Occupation title: cashier manager. Highest education level: some college. Disability, $977. Sex at : Female. Sexual orientation: Bisexual. Gender identity: Female. Gender of partner(s): Male and Female. Sexually active: Yes. Other information: go out to eat, spend time with family, social history 2022-11-09 2022-11-09 reviewed today [facility] reviewed E&M 09:26:17 09:26:17 Health family support 2022-07-20 2022-07-20 Pt has two [facility] 15:57:24 15:57:24 daughters ages 30 Health and 24. Pt was adopted and her adoptive parents are . Pt has 6 biologic siblings and two adoptive siblings. home/family 2022-07-20 2022-07-20 Pt lives with [facility] situation, 15:57:24 15:57:24 daughter who is Health assessment 24 as of 2021. One mental telepathist at [facility] and the other on disability due to mental health condition. Close to both daughters. Reports she has a few friends in [place], [place], she lives in [place] but used to live in [place]. Close to one sister and 2 brothers. drug use 2022-04-22 2022-04-22 Currently [facility] 14:23:41 14:23:41 Health alcohol use 2022-04-22 2022-04-22 Previously [facility] 14:23:41 14:23:41 Health time of call 2022-03-11 2022-03-11 03/11/2022 1:[facility] 13:20:46 13:20:46 PM Health albumin, serum 2021-09-18 2021-09-18 4.7 g/dL [facility] 12:33:00 12:33:00 Health if the patient is 2021-05-15 2021-05-15 No [facility] using/has used a 13:21:18 13:21:18 Health vaping item, Current, Former, Never Used, Not asked tobacco use 2020-09-30 2020-09-30 Currently [facility] ity (cigarettes, cigar, 14:09:27 14:09:27 Healt h chew, pipe) passive cigarette 2018-08-03 2018-08-03 No [facility] smoke exposure 15:29:37 15:29:37 Health is there any chance 2018-08-03 2018-08-03 No [facility] that you could be 15:29:37 15:29:37 Health ? sexual orientation 2017-11-16 2017-11-16 Bisexual [facility] 13:59:38 13:59:38 Health PHQ2 Questionairre 2017-11-16 2017-11-16 [facility] Score 13:59:38 13:59:38 Health Occupation #1 2016-10-29 2016-10-29 cashier manager [facility] 10:46:49 10:46:49 Health sex at 2016-10-29 2016-10-29 F [facility] 10:46:49 10:46:49 Health Smoking Status Start Date Stop Date Source Never smoked tobacco (finding) L [facility] Health Medications Ordered Filled Start Stop Current Ordering Indication Dosage Frequency Signature Comments Components Source Medication Medication Date Date Medication? Clinician (SIG) Name Name dexlansopra Yes 60mg QD Take 1 Meth master zole 2-[address] (DEXILANT) 00:00: (60 mg Hospi ta 60 mg 00 total) by l capsule mouth daily. dexlansopra Yes 60mg QD Take 1 Meth master zole 2-[address] (DEXILANT) 00:00: (60 mg Hospi ta 60 mg 00 total) by l capsule mouth daily. dexlansopra 2023-0 Yes 60mg QD Take 1 Meth master zole 2-[address] (DEXILANT) 00:00: (60 mg Hospi ta 60 mg 00 total) by l capsule mouth daily. traMADoL 2022-0 Yes [id number] 50mg Q8H Take 1 Method i (Ultram) 50 1-17 tablet (50 st mg tablet 00:00: mg total) Hos surekha 00 by mouth l every 8 (eight) hours as needed for moderate pain for up to 10 doses .acute pain. traMADoL 0 Yes [id number] 50mg Q8H Take 1 Method i (Ultram) 50 1-17 tablet (50 st mg tablet 00:00: mg total) Hos surekha 00 by mouth l every 8 (eight) hours as needed for moderate pain for up to 10 doses .acute pain. traMADoL 0 Yes [id number] 50mg Q8H Take 1 Method i (Ultram) 50 1-17 tablet (50 st mg tablet 00:00: mg total) Hos surekha 00 by mouth l every 8 (eight) hours as needed for moderate pain for up to 10 doses .acute pain. celecoxib 0 Yes 200mg Q.5D Take 1 Metho di (CeleBREX) 1-[address] 200 MG 00:00: (200 mg Hospita capsule 00 total) by l mouth 2 (two) times a day as needed (pain). celecoxib 2022-0 Yes 200mg Q.5D Take 1 Metho di (CeleBREX) 1-[address] 200 MG 00:00: (200 mg Hospita capsule 00 total) by l mouth 2 (two) times a day as needed (pain). celecoxib 2022-0 Yes 200mg Q.5D Take 1 Metho di (CeleBREX) 1-[address] 200 MG 00:00: (200 mg Hospita capsule 00 total) by l mouth 2 (two) times a day as needed (pain). lamoTRIgine 2021-11 Yes 100mg Q.5D Take 100 M ethodi (LaMICtal) 2-[address] 100 MG 10:44: mouth 2 Hospita tablet 58 (two) l times a day. escitalopra 2021-11 Yes 20mg QD Take 20 mg Methodi m (LEXAPRO) 2-[address] 20 MG 10:44: daily. Hospita tablet 58 l risperiDONE 2021-11 Yes 2mg Q.5D Take 2 mg M ethodi (RisperDAL 2-[address] M-TABS) 2 10:44: (two) Hospita MG 58 times a l disintegrat day. ing tablet empaglifloz 2021-11 Yes Q.5D Take by Met eshai in-metformi 2-[address] 10:44: (two) Hospita (Synjardy) 58 times a l 12.5-1,000 day. mg tablet traZODone 2021-11 Yes 100mg QD Take 1 Metho di (DESYREL) 2-[address] 100 MG 10:44: (100 mg Hospita tablet 58 total) by l mouth nightly. Pt takes 2 tabs nightly cetirizine 2021-11 Yes 10mg QD Take 1 Metho di (ZyrTEC) 10 2-27 tablet (10 st MG tablet 10:44: mg total) Hos surekha 58 by mouth l daily. modafiniL 2021-11 Yes 200mg QD Take 1 Metho di (PROVIGIL) 2-[address] 200 MG 10:44: (200 mg Hospita tablet 58 total) by l mouth daily. lamoTRIgine 2021-11 Yes 100mg Q.5D Take 100 M ethodi (LaMICtal) 2-[address] 100 MG 10:44: mouth 2 Hospita tablet 58 (two) l times a day. escitalopra 2021-11 Yes 20mg QD Take 20 mg Methodi m (LEXAPRO) 2-[address] 20 MG 10:44: daily. Hospita tablet 58 l risperiDONE 2021-11 Yes 2mg Q.5D Take 2 mg M ethodi (RisperDAL 2-[address] M-TABS) 2 10:44: (two) Hospita MG 58 times a l disintegrat day. ing tablet empaglifloz 2021-11 Yes Q.5D Take by Met hodi in-metformi 2-[address] 10:44: (two) Hospita (Synjardy) 58 times a l 12.5-1,000 day. mg tablet traZODone 2021-11 Yes 100mg QD Take 1 Metho di (DESYREL) 2-[address] 100 MG 10:44: (100 mg Hospita tablet 58 total) by l mouth nightly. Pt takes 2 tabs nightly cetirizine 2021-11 Yes 10mg QD Take 1 Metho di (ZyrTEC) 10 2-27 tablet (10 st MG tablet 10:44: mg total) Hos surekha 58 by mouth l daily. modafiniL 2021-11 Yes 200mg QD Take 1 Metho di (PROVIGIL) 2-[address] 200 MG 10:44: (200 mg Hospita tablet 58 total) by l mouth daily. lamoTRIgine 2021-11 Yes 100mg Q.5D Take 100 M ethodi (LaMICtal) 2-[address] 100 MG 10:44: mouth 2 Hospita tablet 58 (two) l times a day. escitalopra 2021-11 Yes 20mg QD Take 20 mg Methodi m (LEXAPRO) 2-[address] 20 MG 10:44: daily. Hospita tablet 58 l risperiDONE 2021-11 Yes 2mg Q.5D Take 2 mg M ethodi (RisperDAL 2-[address] M-TABS) 2 10:44: (two) Hospita MG 58 times a l disintegrat day. ing tablet empaglifloz 2021-11 Yes Q.5D Take by Met hodi in-metformi 2-[address] 10:44: (two) Hospita (Synjardy) 58 times a l 12.5-1,000 day. mg tablet traZODone 2021-11 Yes 100mg QD Take 1 Metho di (DESYREL) 2-[address] 100 MG 10:44: (100 mg Hospita tablet 58 total) by l mouth nightly. Pt takes 2 tabs nightly cetirizine 2021-11 Yes 10mg QD Take 1 Metho di (ZyrTEC) 10 2-27 tablet (10 st MG tablet 10:44: mg total) Hos surekha 58 by mouth l daily. modafiniL 2021-11 Yes 200mg QD Take 1 Metho di (PROVIGIL) 2-[address] 200 MG 10:44: (200 mg Hospita tablet 58 total) by l mouth daily. loperamide 2021-11 Yes TAKE 1 Metho di (IMODIUM) 2 2-[address] mg capsule 00:00: MOUTH 4 Hosp quintin 00 TIMES A l DAY NEEDED FOR DIARRHEA FOR UP TO 10 DAYS. loperamide 2021-11 Yes TAKE 1 Metho di (IMODIUM) 2 2-[address] mg capsule 00:00: MOUTH 4 Hosp quintin 00 TIMES A l DAY NEEDED FOR DIARRHEA FOR UP TO 10 DAYS. loperamide 2021-11 Yes TAKE 1 Metho di (IMODIUM) 2 2-[address] mg capsule 00:00: MOUTH 4 Hosp quintin 00 TIMES A l DAY NEEDED FOR DIARRHEA FOR UP TO 10 DAYS. traMADoL 2021-11- No [id number] 50mg Q4H Take 1 Metho di (ULTRAM) 50 2-20 01-17 tablet (50 s t mg tablet 00:00: 00:00 mg total) Ho spita 00 :00 by mouth l every 4 (four) hours as needed for severe pain for up to 10 doses .acute pain. traMADoL 2021-11- No [id number] 50mg Q4H Take 1 Metho di (ULTRAM) 50 2-20 -17 tablet (50 s t mg tablet 00:00: 00:00 mg total) Ho spita 00 :00 by mouth l every 4 (four) hours as needed for severe pain for up to 10 doses .acute pain. traMADoL 2021-11- No [id number] 50mg Q4H Take 1 Metho di (ULTRAM) 50 2-20 -17 tablet (50 s t mg tablet 00:00: 00:00 mg total) Ho spita 00 :00 by mouth l every 4 (four) hours as needed for severe pain for up to 10 doses .acute pain. fluticasone 2021-11 Yes [id number] 50ug Q.5D 1 spray Methodi propionate 2-16 ([address] (FLONASE) 00:00: total) by Hos surekha 50 00 Each Nare l mcg/actuati route 2 on nasal (two) spray times a day. fluticasone 2021-11 Yes [id number] 50ug Q.5D 1 spray Methodi propionate 2-16 ([address] (FLONASE) 00:00: total) by Hos surekha 50 00 Each Nare l mcg/actuati route 2 on nasal (two) spray times a day. fluticasone 2021-11 Yes [id number] 50ug Q.5D 1 spray Methodi propionate 2-16 ([address] (FLONASE) 00:00: total) by Hos surekha 50 00 Each Nare l mcg/actuati route 2 on nasal (two) spray times a day. HYDROcodone 2021-11 Yes [id number] 1{tbl} Q6H Take 1 M ethodi -acetaminop 2-[address] hen ([place]) 00:00: mouth Hospi ta 5-325 mg 00 every 6 l per tablet (six) hours as needed for moderate pain .acute pain. Max Daily Amount: 4 tablets HYDROcodone 2021-11 Yes [id number] 1{tbl} Q6H Take 1 M ethodi -acetaminop 2-[address] hen ([place]) 00:00: mouth Hospi ta 5-325 mg 00 every 6 l per tablet (six) hours as needed for moderate pain .acute pain. Max Daily Amount: 4 tablets HYDROcodone 2021-11 Yes [id number] 1{tbl} Q6H Take 1 M ethodi -acetaminop 2-[address] hen ([place]) 00:00: mouth Hospi ta 5-325 mg 00 every 6 l per tablet (six) hours as needed for moderate pain .acute pain. Max Daily Amount: 4 tablets phenazopyri 2021-11 No 200mg Q.[id number] Take 1 Methodi dine 01-[id number] (Pyridium) 00:00: 05:59 3D (200 mg Hos surekha 200 MG 00 :00 total) by l tablet mouth 3 (three) times a day as needed for bladder spasms for up to 3 days. sulfamethox 2021-11- No 1{tbl} Q.5D Take 1 M ethodi azole-trime 01-[address] thoprim 00:00: 05:59 mouth 2 Hospit a (Bactrim 00 :00 (two) l DS) 800-160 times a mg per day for 3 tablet days. phenazopyri 2021-11 No 200mg Q.[id number] Take 1 Methodi dine 01-04- [id number] tablet st (Pyridium) 00:00: 05:59 3D (200 mg Hos surekha 200 MG 00 :00 total) by l tablet mouth 3 (three) times a day as needed for bladder spasms for up to 3 days. sulfamethox 2021-11- No 1{tbl} Q.5D Take 1 M ethodi azole-trime 01-[address] thoprim 00:00: 05:59 mouth 2 Hospit a (Bactrim 00 :00 (two) l DS) 800-160 times a mg per day for 3 tablet days. phenazopyri 2021-11 No 200mg Q.[id number] Take 1 Methodi dine 01-[id number] (Pyridium) 00:00: 05:59 3D (200 mg Hos surekha 200 MG 00 :00 total) by l tablet mouth 3 (three) times a day as needed for bladder spasms for up to 3 days. sulfamethox 2021-11 No 1{tbl} Q.5D Take 1 M ethodi azole-trime 01-[address] thoprim 00:00: 05:59 mouth 2 Hospit a (Bactrim 00 :00 (two) l DS) 800-160 times a mg per day for 3 tablet days. aspirin 2021-11 No 81mg QD Take 81 mg Met hodi (ECOTRIN) 12-[address] 81 MG 11:33: 00:00 daily. Hospita enteric 35 :00 l coated tablet aspirin 2021-11 No 81mg QD Take 81 mg Met hodi (ECOTRIN) 12-[address] 81 MG 11:33: 00:00 daily. Hospita enteric 35 :00 l coated tablet aspirin 2021-11- No 81mg QD Take 81 mg Met hodi (ECOTRIN) 12-21- by mouth st 81 MG 11:33: 00:00 daily. Hospita enteric 35 :00 l coated tablet venlafaxine 2021-11 No 75mg QD Take 75 mg Methodi XR 12-21- by mouth st (EFFEXOR-XR 11:33: 00:00 daily. Hos surekha ) 75 MG 24 00 :00 l hr capsule venlafaxine 2021-11 No 75mg QD Take 75 mg Methodi XR 1-23 11-[address] (EFFEXOR-XR 11:33: 00:00 daily. Hos surekha ) 75 MG 24 00 :00 l hr capsule venlafaxine 2021-11 No 75mg QD Take 75 mg Methodi XR 1-23 11-[address] (EFFEXOR-XR 11:33: 00:00 daily. Hos surekha ) 75 MG 24 00 :00 l hr capsule venlafaxine 2021-11 No 150mg QD Take 150 Methodi XR 1-23 11-[address] (EFFEXOR-XR 11:32: 00:00 mouth [facility] ) 150 MG 24 57 :00 daily. l hr capsule venlafaxine 2021-11 No 150mg QD Take 150 [facility] XR 1-23 11-[address] (EFFEXOR-XR 11:32: 00:00 mouth [facility] ) 150 MG 24 57 :00 daily. l hr capsule venlafaxine 2021-11 No 150mg QD Take 150 [facility] XR 1-23 11-[address] (EFFEXOR-XR 11:32: 00:00 mouth [facility] ) 150 MG 24 57 :00 daily. l hr capsule metFORMIN 2021-11 No [id number] 1000mg Q.5D Take 1,000 [facility] (GLUCOPHAGE 1-23 11-[address] ) 1,000 mg 11:32: 00:00 mouth 2 Hos [facility] tablet 32 :00 (two) l times a day with meals. metFORMIN 2021-11 No [id number] 1000mg Q.5D Take 1,000 [facility] (GLUCOPHAGE 1-23 11-[address] ) 1,000 mg 11:32: 00:00 mouth 2 Hos sure[facility]ha tablet 32 :00 (two) l times a day with meals. metFORMIN 2021-11 [id number] 1000mg Q.5D Take 1,000 [facility] (GLUCOPHAGE 1-23 11-[address] ) 1,000 mg 11:32: 00:00 mouth 2 [facility] tablet 32 :00 (two) l times a day with meals. busPIRone 2021-11 No 10mg Q.[id number] Take 10 mg [facility] (BUSPAR) 10 12-21 [id number] by mouth [address] MG tablet 11:32: 00:00 3D (three) [facility] 25 :00 times a l day. busPIRone 2021-11- No 10mg Q.[id number] Take 10 mg [facility] (BUSPAR) 10 12-21 [id number] by mouth 3 [address] MG tablet 11:32: 00:00 3D (three) [facility] 25 :00 times a l day. busPIRone 2021-11- No 10mg Q.[id number] Take 10 mg [facility] (BUSPAR) 12-21 [id number] by mouth 3 [address] MG tablet 11:32: 00:00 3D (three) [facility] 25 :00 times a l day. traMADoL 2021-11- No [id number] 50mg Q6H Take 1 [facility] (Ultram) 50 12-09 tablet (50 s t mg tablet 00:00: 05:59 mg total) [facility] 00 :00 by mouth l every 6 (six) hours as needed for moderate pain for up to 7 days .acute pain. traMADoL 2021-11- No [id number] 50mg Q6H Take 1 [facility] (Ultram) 50 12-09 tablet (50 s t mg tablet 00:00: 05:59 mg total) [facility] 00 :00 by mouth l every 6 (six) hours as needed for moderate pain for up to 7 days .acute pain. traMADoL 2021-11 No [id number] 50mg Q6H Take 1 [facility] (Ultram) 50 12-0919 tablet (50 s t mg tablet 00:00: 05:59 mg total) [facility] 00 :00 by mouth l every 6 (six) hours as needed for moderate pain for up to 7 days .acute pain. topiramate 2021-11 Yes 200mg QD Take 1 [facility] (TOPAMAX) 0-[address] 200 MG 00:00: (200 mg Hospita tablet 00 total) by l mouth nightly. gabapentin 2021-11 Yes 800mg Q.[id number] Take 1 [facility] (NEURONTIN) 0-[id number] 800 mg 00:00: 3D (800 mg Hospita tablet 00 total) by l mouth 3 (three) times a day. topiramate 2021-11 Yes 200mg QD Take 1 [facility] (TOPAMAX) 0-[address] 200 MG 00:00: (200 mg Hospita tablet 00 total) by l mouth nightly. gabapentin 2021-11 Yes 800mg Q.[id number] Take 1 [facility] (NEURONTIN) 0-[id number] 800 mg 00:00: 3D (800 mg Hospita tablet 00 total) by l mouth 3 (three) times a day. topiramate 2021-11 Yes 200mg QD Take 1 [facility] (TOPAMAX) 0-[address] 200 MG 00:00: (200 mg Hospita tablet 00 total) by l mouth nightly. gabapentin 2021-11 Yes 800mg Q.[id number] Take 1 [facility] (NEURONTIN) 0-[id number] 800 mg 00:00: 3D (800 mg Hospita tablet 00 total) by l mouth 3 (three) times a day. loperamide 2021-11- No 2mg Q.25D Take 1 [facility] (IMODIUM 0-12 12-27 tablet (2 st A-D) 2 mg 00:00: 00:00 mg total) [facility] tablet 00 :00 by mouth 4 l (four) times a day as needed for diarrhea for up to 10 days. loperamide 2021-11- No 2mg Q.25D Take 1 [facility] (IMODIUM 0-12 12-27 tablet (2 st A-D) 2 mg 00:00: 00:00 mg total) [facility] tablet 00 :00 by mouth 4 l (four) times a day as needed for diarrhea for up to 10 days. loperamide 2021-11- No 2mg Q.25D Take 1 [facility] (IMODIUM 0-12 12-27 tablet (2 st A-D) 2 mg 00:00: 00:00 mg total) [facility] tablet 00 :00 by mouth 4 l (four) times a day as needed for diarrhea for up to 10 days. fluconazole 2021-11- No TAKE 1 [facility] (DIFLUCAN) 0-01 12-[address] 200 MG 00:00: 00:00 MOUTH [facility]ospita tablet 00 :00 EVERY DAY l FOR 2 DAYS fluconazole 2021-11- No TAKE 1 [facility] (DIFLUCAN) 010-[address] 200 MG 00:00: 00:00 MOUTH [facility]ospita tablet 00 :00 EVERY DAY l FOR 2 DAYS fluconazole 2021-11- No TAKE 1 [facility] (DIFLUCAN) 010-[address] 200 MG 00:00: 00:00 MOUTH [facility]ospita tablet 00 :00 EVERY DAY l FOR 2 DAYS tamsulosin 2021- No [id number] .4mg QD Take 1 [facility] (FLOMAX) 30 10-[address] 0.4 mg 00:00: 04:59 (0.4 mg Hospita capsule 00 :00 total) by l mouth daily for 30 days. tamsulosin 2021- No [id number] .4mg QD Take 1 [facility] (FLOMAX) -27 09-[address] 0.4 mg 00:00: 04:59 (0.4 mg Hospita capsule 00 :00 total) by l mouth daily for 30 days. tamsulosin 2021- No [id number] .4mg QD Take 1 [facility] (FLOMAX) 30 10-[address] 0.4 mg 00:00: 04:59 (0.4 mg [facility]ospita capsule 00 :00 total) by l mouth daily for 30 days. Ubrelvy 100 Yes TAKE 1 [facility] mg tablet 9-[address] tablet 00:00: (100 MG) Hospita 00 AT l ONSET-MAX 2 IN A 24 HR PERIOD Ubrelvy 100 Yes TAKE 1 [facility] mg tablet 9-[address] tablet 00:00: (100 MG) [facility]ospita 00 AT l ONSET-MAX 2 IN A 24 HR PERIOD Ubrelvy 100 Yes TAKE 1 [facility] mg tablet 9-[address] tablet 00:00: (100 MG) Hospita 00 AT l ONSET-MAX 2 IN A 24 HR PERIOD (GABAPENTIN Yes TAKE 1 [facility] ) 800 MG 9-08 TABLET BY Vijay PRECIADO 08:53: MOUTH Family 32 THREE Practic TIMES A e DAY (DULOXETINE 2021-0 Yes TAKE 1 [facility] HCL) 30 MG 9-08 CAPSULE BY Melvin sequeira CPEP 08:53: MOUTH Family 32 EVERY DAY Practic e (FENOFIBRAT 2021-0 Yes TAKE 1 [facility] E) 160 MG 9-08 TABLET BY Roque to TABS 08:53: MOUTH Family 31 EVERY DAY Practic e (TOPIRAMATE 2021-0 Yes TAKE 1 [facility] ) 200 MG 9-08 TABLET BY Vijay o TABS 08:53: MOUTH Family 31 EVERYDAY Practic AT BEDTIME e (LISINOPRIL 2021-0 Yes TAKE 1 [facility] ) 2.5 MG 9-08 TABLET BY Vijay o TABS 08:53: MOUTH Family 31 EVERY DAY Practic e (PRAMIPEXOL 2021-0 Yes TAKE 1 [facility] E 9-08 TABLET BY Tk RAYCHLO 08:53: MOUTH Famil y RIDE) 0.25 31 EVERYDAY Pract ic MG TABS AT BEDTIME e pramipexole 2021-0 Yes .25mg QD Take 1 [facility] (MIRAPEX) 9-[address] 0.25 MG 00:00: (0.25 mg Hospit a tablet 00 total) by l mouth nightly. pramipexole 2021-0 Yes .25mg QD Take 1 [facility] (MIRAPEX) 9-[address] 0.25 MG 00:00: (0.25 mg Hospit a tablet 00 total) by l mouth nightly. pramipexole 2021-0 Yes .25mg QD Take 1 [facility] (MIRAPEX) 9-[address] 0.25 MG 00:00: (0.25 mg Hospit a tablet 00 total) by l mouth nightly. dexlansopra 2021-0 2022- No TAKE 1 [facility] zole 08-06- CAPSULE BY st (DEXILANT) 00:00: 00:00 MOUTH Hospi ta 60 mg 00 :00 EVERY DAY l capsule dexlansopra 2021-0 2022- No TAKE 1 [facility] zole 08-06- CAPSULE BY st (DEXILANT) 00:00: 00:00 MOUTH Hospi ta 60 mg 00 :00 EVERY DAY l capsule dexlansopra 2021-0 2022- No TAKE 1 [facility] zole 08-[address] (DEXILANT) 00:00: 00:00 MOUTH Hospi ta 60 mg 00 :00 EVERY DAY l capsule sulfamethox 2021- No 1{tbl} Q.5D Take 1 M ethodi azole-trime 08-[address] thoprim 00:00: 04:59 mouth 2 Hospit a (Bactrim 00 :00 (two) l DS) 800-160 times a mg per day for 7 tablet days. sulfamethox 2021- No 1{tbl} Q.5D Take 1 M ethodi azole-trime 08-[address] thoprim 00:00: 04:59 mouth 2 Hospit a (Bactrim 00 :00 (two) l DS) 800-160 times a mg per day for 7 tablet days. sulfamethox 2021- No 1{tbl} Q.5D Take 1 M ethodi azole-trime 08-[address] thoprim 00:00: 04:59 mouth 2 Hospit a (Bactrim 00 :00 (two) l DS) 800-160 times a mg per day for 7 [place] [id number] 50mg Q6H Take 1 [facility] (Ultram) 50 07-31 11-11 tablet (50 s t mg tablet 00:00: 00:00 mg total) Ho spita 00 :00 by mouth l every 6 (six) hours as needed for moderate pain for up to 7 [place] [id number] 50mg Q6H Take 1 [facility] (Ultram) 50 - 11-11 tablet (50 s t mg tablet 00:00: 00:00 mg total) [facility]ita 00 :00 by mouth l every 6 (six) hours as needed for moderate pain for up to 7 [place] [id number] 50mg Q6H Take 1 [facility] (Ultram) 50 - 11-11 tablet (50 s t mg tablet 00:00: 00:00 mg total) [facility]ita 00 :00 by mouth l every 6 (six) hours as needed for moderate pain for up to 7 days .acute pain. tamsulosin 2021- No [id number] .4mg QD Take 1 [facility] (FLOMAX) 07-[address] 0.4 mg 00:00: 00:00 (0.4 mg Hospita capsule 00 :00 total) by l mouth daily for 30 days. tamsulosin 2021- No [id number] .4mg QD Take 1 [facility] (FLOMAX) 07-[address] 0.4 mg 00:00: 00:00 (0.4 mg Hospita capsule 00 :00 total) by l mouth daily for 30 days. tamsulosin 2021- No [id number] .4mg QD Take 1 [facility] (FLOMAX) 07-[address] 0.4 mg 00:00: 00:00 (0.4 mg Hospita capsule 00 :00 total) by l mouth daily for 30 days. nitrofurant 2021- No [id number] 100mg Q.5D Take 1 [facility] oin, 07-[address] macrocrysta 00:00: 04:59 (100 mg Ho spita l-monohydra 00 :00 total) by l te, mouth 2 (Macrobid) (two) 100 MG times a capsule day for 5 days. nitrofurant 2021- No [id number] 100mg Q.5D Take 1 [facility] oin, 07-[address] macrocrysta 00:00: 04:59 (100 mg Ho sp[facility] l-monohydra 00 :00 total) by l te, mouth 2 (Macrobid) (two) 100 MG times a capsule day for 5 days. nitrofurant 2021- No [id number] 100mg Q.5D Take 1 [facility] oin, 07-[address] macrocrysta 00:00: 04:59 (100 mg Ho sp[facility] l-monohydra 00 :00 total) by l te, mouth 2 (Macrobid) (two) 100 MG times a capsule day for 5 days. fluconazole 2021- No [id number] 150mg Take 1 [facility] (Diflucan) 07-[address] 150 MG 00:00: 04:59 (150 mg Hospita tablet 00 :00 total) by l mouth once for 1 dose. fluconazole 2021-2021- No [id number] 150mg Take 1 [facility] (Diflucan) 07-[address] 150 MG 00:00: 04:59 (150 mg Hospita tablet 00 :00 total) by l mouth once for 1 dose. fluconazole 2021-0 2- No [id number] 150mg Take 1 [facility] (Diflucan) 07-[address] 150 MG 00:00: 04:59 (150 mg Hospita tablet 00 :00 total) by l mouth once for 1 dose. keTOROlac 2021- No [id number] 10mg Q6H Take 1 M ethodi (TORadol) 07-31 tablet (10 st 10 mg 00:00: 00:00 mg total) Hospit a tablet 00 :00 by mouth l every 6 (six) hours as needed for moderate pain for up to 5 days. keTOROlac 2021-0 2021- No [id number] 10mg Q6H Take 1 M ethodi (TORadol) 07-31 tablet (10 st 10 mg 00:00: 00:00 mg total) Hospit a tablet 00 :00 by mouth l every 6 (six) hours as needed for moderate pain for up to 5 days. keTOROlac 2021-0 2021- No [id number] 10mg Q6H Take 1 M ethodi (TORadol) 07-31 tablet (10 st 10 mg 00:00: 00:00 mg total) Hospit a tablet 00 :00 by mouth l every 6 (six) hours as needed for moderate pain for up to 5 days. lisinopriL 2022-0 Yes 2.5mg QD Take 1 [facility] (PRINIVIL) 8-[address] 2.5 mg 00:00: (2.5 mg Hospita tablet 00 total) by l mouth daily. lisinopriL 2022-0 Yes 2.5mg QD Take 1 [facility] (PRINIVIL) 8-[address] 2.5 mg 00:00: (2.5 mg Hospita tablet 00 total) by l mouth daily. lisinopriL 2022-0 Yes 2.5mg QD Take 1 [facility] (PRINIVIL) 8-[address] 2.5 mg 00:00: (2.5 mg Hospita tablet 00 total) by l mouth daily. tamsulosin 2021-0 2021- No .4mg QD Take 1 [facility] (FLOMAX) 07-[address] 0.4 mg 00:00: 00:00 (0.4 mg Hospita capsule 00 :00 total) by l mouth daily for 30 days. tamsulosin 2021-0 2021- No .4mg QD Take 1 [facility] (FLOMAX) 07-[address] 0.4 mg 00:00: 00:00 (0.4 mg Hospita capsule 00 :00 total) by l mouth daily for 30 days. tamsulosin 2021-0 2021- No .4mg QD Take 1 [facility] (FLOMAX) 07-[address] 0.4 mg 00:00: 00:00 (0.4 mg Hospita capsule 00 :00 total) by l mouth daily for 30 days. ondansetron 2021-2021- No 4mg Q8H Take 1 [facility] ODT 07-15 tablet (4 st (ZOFRAN-ODT 00:00: 04:59 mg total) Hospita ) 4 MG 00 :00 by mouth l disintegrat every 8 ing tablet (eight) hours as needed for nausea or vomiting for up to 5 [place] [id number] 1{tbl} Q6H Take 1 [facility] en-codeine 07-[address] (TYLENOL 00:00: 04:59 mouth [facility]ospita WITH 00 :00 every 6 l CODEINE #3) (six) 300-30 mg hours as per tablet needed for moderate pain for up to 5 days .acute pain. ondansetron 2021-0 2021- No 4mg Q8H Take 1 [facility] ODT 07-1523 tablet (4 st (ZOFRAN-ODT 00:00: 04:59 mg total) Hospita ) 4 MG 00 :00 by mouth l disintegrat every 8 ing tablet (eight) hours as needed for nausea or vomiting for up to 5 days. acetamin[place] 2021- [place] [id number] 1{tbl} Q6H Take 1 [facility] en-codeine 07-15- tablet by st (TYLENOL 00:00: 04:59 mouth [facility]osp[facility] WITH 00 :00 every 6 l CODEINE #3) (six) 300-30 mg hours as per tablet needed for moderate pain for up to 5 days .acute pain. ondansetron 2021- No 4mg Q8H Take 1 [facility] ODT 07-15 tablet (4 st (ZOFRAN-ODT 00:00: 04:59 mg total) Hospita ) 4 MG 00 :00 by mouth l disintegrat every 8 ing tablet (eight) hours as needed for nausea or vomiting for up to 5 [place] [id number] 1{tbl} Q6H Take 1 [facility] en-codeine 07-[address] (TYLENOL 00:00: 04:59 mouth [facility]osp[facility] WITH 00 :00 every 6 l CODEINE #3) (six) 300-30 mg hours as per tablet needed for moderate pain for up to 5 days .acute pain. dexlansopra 2021- No TAKE 1 [facility] zole 8-15 09-[address] (DEXILANT) 00:00: 00:00 MOUTH Hospi ta 60 mg 00 :00 EVERY DAY l capsule dexlansopra 2021- No TAKE 1 [facility] zole 8-15 09-[address] (DEXILANT) 00:00: 00:00 MOUTH Hospi ta 60 mg 00 :00 EVERY DAY l capsule dexlansopra 2021- No TAKE 1 [facility] zole 8-15 09-[address] (DEXILANT) 00:00: 00:00 MOUTH Hospi ta 60 mg 00 :00 EVERY DAY l capsule Dexilant 60 2021- No TAKE 1 [facility] mg capsule 7-18 08-[address] 00:00: 00:00 MOUTH Hospita 00 :00 DAILY FOR l 30 DAYS. Dexilant 60 2021- No TAKE 1 [facility] mg capsule 7-18 08-[address] 00:00: 00:00 MOUTH Hospita 00 :00 DAILY FOR l 30 DAYS. Dexilant 60 2021- No TAKE 1 [facility] mg capsule 18 08-[address] 00:00: 00:00 MOUTH [facility]ospita 00 :00 DAILY FOR l 30 DAYS. (MODAFINIL) Yes Nuno 1 Take 1 [facility] 200 MG TABS 5-25 Leoz-Hannah tablet by Tk 14:43: zo MD mouth Family 30 every Practic morning e meloxicam 2021- No 15mg Q24H Take 1 [facility] (Mobic) 15 5-25 11-23 tablet (15 st mg tablet 00:00: 00:00 mg total) Ho spita 00 :00 by mouth l daily as needed (Pain). meloxicam 2021- No 15mg Q24H Take 1 [facility] (Mobic) 15 5-25 11-23 tablet (15 st mg tablet 00:00: 00:00 mg total) Ho spita 00 :00 by mouth l daily as needed (Pain). meloxicam 2021- No 15mg Q24H Take 1 [facility] (Mobic) 15 5-25 11-23 tablet (15 st mg tablet 00:00: 00:00 mg total) Ho spita 00 :00 by mouth l daily as needed (Pain). acetaminoph 2021- No 500mg Q6H Take 1 [facility] en (Tylenol 5-25 07-[address] Extra 00:00: 04:59 (500 mg Hospita Strength) 00 :00 total) by l 500 MG mouth tablet every 6 (six) hours as needed for mild pain for up to 40 days. acetaminoph 2021- No 500mg Q6H Take 1 [facility] (Tylenol 5-25 07-[address] Extra 00:00: 04:59 (500 mg Hospita Strength) 00 :00 total) by l 500 MG mouth tablet every 6 (six) hours as needed for mild pain for up to 40 days. acetaminoph 2021- No 500mg Q6H Take 1 [facility] en (Tylenol 5-25 07-[address] Extra 00:00: 04:59 (500 mg [facility]ospita Strength) 00 :00 total) by l 500 MG mouth tablet every 6 (six) hours as needed for mild pain for up to 40 days. (LAMOTRIGIN Yes Nuno TAKE 1 [facility] E) 100 MG 4-04 Leoz-Hannah TABLET BY Tk TABS 00:00: soni MUKHERJEE MOUTH Family 00 TWICE A Practic DAY e (ESCITALOPR Yes Nuno 1 Take 1 [facility] AM OXALATE) 4-04 Leoz-Hannah tablet by Tk 20 MG TABS 00:00: soni MUKHERJEE mouth Famil y 00 every Practic morning e (TRAZODONE Yes Nuno TAKE 2 [facility] HCL) 100 MG 2-25 Leoz-Hannah TABLETS BY Tk TABS 00:00: soni MUKHERJEE MOUTH Family 00 EVERY DAY Practic AT NIGHT e (BUSPIRONE 2021- No Tariq TAKE 1 [facility] HCL) 15 MG 2-25 09-08 Atri TABLET BY Melvin into TABS 00:00: 00:00 MOUTH Family 00 :00 THREE Practic TIMES A e DAY Dexilant 60 2021- No TAKE 1 [facility] mg capsule -03 05-[address] 00:00: 00:00 (60 MG Hospita 00 :00 TOTAL) BY l MOUTH DAILY FOR 30 DAYS. Dexilant 60 2021- No TAKE 1 [facility] mg capsule 1-03 05-[address] 00:00: 00:00 (60 MG Hospita 00 :00 TOTAL) BY l MOUTH DAILY FOR 30 DAYS. Dexilant 60 2021- No TAKE 1 [facility] mg capsule -03 05-[address] 00:00: 00:00 (60 MG Hospita 00 :00 TOTAL) BY l MOUTH DAILY FOR 30 DAYS. (BUSPIRONE 2020-11- No Tariq 1 Take 1 [facility] HCL) 15 MG 1-19 02-25 Atri tablet by Melvin into TABS 00:00: 00:00 mouth Family 00 :00 three Practic times a e day LAMICTAL 2021- No Tariq 1 Take 1 Sa n (LAMOTRIGIN 08-26 04-04 Atri tablet by Michel Carr) 100 MG 00:00: 00:00 mouth Family TABS 00 :00 twice a Practic day e LAMICTAL 2019-11- No Tariq 1 1 tablet [facility] (LAMOTRIGIN 12-15 Atri by mouth Tk Carr) 100 MG 00:00: 00:00 twice a Fami ly TABS 00 :00 day Practic e RISPERDAL Yes Nuno 1 Take 1 S an (RISPERIDON 8-10 Leoz-Hannah tablet by Tk Carr) 2 MG 00:00: zo mouth at Famil y TABS 00 bedtime Practic e LEXAPRO 2021- No Tariq 1 Take 1 [facility] (ESCITALOPR 803-02 Atri tablet by Michel hurtado AM OXALATE) 00:00: 00:00 mouth once Family 20 MG TABS 00 :00 a day Practic e (BUSPIRONE 2020- No Tariq 1{Table 3xD Take 1 [facility] HCL) 10 MG 07-08 Atri t} tablet by Melvin into TABS 00:00: 00:00 mouth Family 00 :00 three Practic times a e day (LORAZEPAM) 2019- No Tariq 1 TAB BY [facility] 1 MG TABS 04-29 Atri MOUTH Jacin to 00:00: 00:00 EVERY Family 00 :00 MORNING Practic AND 2 TABS e BY MOUTH TAKE AT BEDTIME tiZANidine 2021- No TAKE 1 [facility] (ZANAFLEX) -28 10-[address] 2 MG tablet 00:00: 00:00 MOUTH [facility] 00 :00 EVERY 8 l HRS S NEEDED FOR MUSCLE SPASMS tiZANidine 2021- No TAKE 1 [facility] (ZANAFLEX) 3-30 11-[address] 2 MG tablet 00:00: 00:00 MOUTH [facility] 00 :00 EVERY 8 l HRS S NEEDED FOR MUSCLE SPASMS tiZANidine 2021- No TAKE 1 [facility] (ZANAFLEX) 3-30 11-[address] 2 MG tablet 00:00: 00:00 MOUTH [facility] 00 :00 EVERY 8 l HRS S NEEDED FOR MUSCLE SPASMS ABILIFY 2020- No Tariq 1 tab By S an (ARIPIPRAZO 01-19 Atri Mouth take Tk MAYA) 5 MG 00:00: 00:00 at bedtime Fa julius TABS 00 :00 for Practic bipolar e depression VENLAFAXINE 2018-11- No Tariq TAKE 1 [facility] HCL ER 2 08-10 Atri MD CAPSULE BY Melvin into (VENLAFAXIN 00:00: 00:00 MOUTH AT F amily E HCL) 150 00 :00 BEDTIME Practi c MG FOR e [id number] ANXIETY , DEPRESSION (TAKE TOGETHER WITH 75 MG DOSE) (TRAZODONE 2021- No Tariq 2 Take 2 [facility] HCL) 100 MG 07-31 Atri tablet by Michel hurtado TABFernanda 00:00: 00:00 mouth Family 00 :00 every Practic night e VENLAFAXINE No Tariq TAKE 1 [facility] HCL ER 07-24-10 Atri MD CAPSULE BY Melvin into (VENLAFAXIN 00:00: 00:00 MOUTH ONCE Family E HCL) 75 00 :00 DAILY TAKE Prac tic MG WITH 150 e [id number] MILLIGRAM DOSE (LAMOTRIGIN No Tariq TAKE 1 [facility] E) 100 MG 07-17- Atri TABLET BY Rosaura lau TABFernanda 00:00: 00:00 MOUTH Family 00 :00 TWICE Practic DAILY FOR e BIPOLAR DEPRESSION LORAZepam 2021- No 1mg 1 tablet [facility] (ATIVAN) 1 05-01 ([address] MG tablet 00:00: 00:00 total). [facility] 00 :00 l LORAZepam 2021- No 1mg 1 tablet [facility] (ATIVAN) 1 05-01 ([address] MG tablet 00:00: 00:00 total). [facility] 00 :00 l LORAZepam 2021- No 1mg 1 tablet [facility] (ATIVAN) 1 05-01 ([address] MG tablet 00:00: 00:00 total). [facility] 00 :00 l traZODone 2021- No 300mg QD Take 300 [facility] (DESYREL) 04-06 12- mg by st 150 MG 00:00: 00:00 mouth Hospita tablet 00 :00 nightly. l traZODone 2021- No 300mg QD Take 300 [facility] (DESYREL) 04-06 12- mg by st 150 MG 00:00: 00:00 mouth [facility]ospita tablet 00 :00 nightly. l traZODone 300mg QD Take 300 Me [facility] (DESYREL) 04-[address] 150 MG 00:00: 00:00 mouth Hospita tablet 00 :00 nightly. l metoclopram No TAKE ONE M ethodi stephanie 04-[address] (REGLAN) 10 00:00: 00:00 MOUTH 4 Ho spita MG tablet 00 :00 TIMES l DAILY. metoclopram TAKE ONE M ethodi stephanie 04-[address] (REGLAN) 10 00:00: 00:00 MOUTH 4 Ho spita MG tablet 00 :00 TIMES l DAILY. metoclopram TAKE ONE M ethodi stephanie 04-[address] (REGLAN) 10 00:00: 00:00 MOUTH 4 Ho spita MG tablet 00 :00 TIMES l DAILY. gabapentin 600mg Q.[id number] Take 1 [facility] (NEURONTIN) 02-[id number] 600 mg 00:00: 00:00 3D (600 mg Hospita tablet 00 :00 total) by l mouth 3 (three) times a day. gabapentin 600mg Q.[id number] Take 1 [facility] (NEURONTIN) 02-[id number] 600 mg 00:00: 00:00 3D (600 mg Hospita tablet 00 :00 total) by l mouth 3 (three) times a day. gabapentin 600mg Q.[id number] Take 1 [facility] (NEURONTIN) 02-[id number] 600 mg 00:00: 00:00 3D (600 mg Hospita tablet 00 :00 total) by l mouth 3 (three) times a day. (MIRTAZAPIN 1 tab By S leanne Carr) 7.5 MG 02-09 Mouth take Melvin into TABS 00:00: 00:00 at bedtime Family 00 :00 for sleep Practic e DIFLUCAN Alvin A 1 by mouth [place] (FLUCONAZOL 08-03 Junior MUKHERJEE x1 dose Tk E) 150 MG 00:00: 00:00 for yeast Fa julius TABS 00 :00 infection Practic e ELAVIL 25 2018- No 1 tab By [facility] MG ORAL 04-14 Mouth take Jacin to TABLET 00:00: 00:00 at bedtime Fami ly 00 :00 for Practic insomnia e (AMOXICILLI 2016-11 Mayda 1 by mouth [facility] N) 500 MG 01-17 Meena MUKHERJEE 3 times a Tk CAPS 00:00: 00:00 day for 7 Family 00 :00 days for Practic sinus e infection LATUDA 2016-11- No 1 tab By [facility] (LURASIDONE 0- Mouth take J acinto HCL) 40 MG 00:00: 00:00 at bedtime Family TABS 00 :00 for Practic bipolar e depression TERAZOL 7 2016-11- No Alvin A 1 vaginal Sa n 0.4 % 09-16 Junior MUKHERJEE applicator applicato Tk VAGINAL 00:00: 00:00 full Every r Fam michael CREAM 00 :00 at bedtime Practic for 7 days e vaginally DIFLUCAN 2016-11- No Alvin A take one one pill [place] (FLUCONAZOL 09-14 Junior MUKHERJEE pill now today an d Tk E) 150 MG 00:00: 00:00 and repeat repeat in Family TABS 00 :00 in 1 week 7 days Practic e VALTREX 2016-11- No Alvin A 1 pill By Sa n (VALACYCLOV 09-03 Junior MUKHERJEE Mouth J acinto IR HCL) 500 00:00: 00:00 Twice a Fa julius MG TABS 00 :00 Day for 3 Practic days e LO LOESTRIN 2016-11- No Alvin A 1 pill S an FE 009-03 Junior MUKHERJEE daily po Jacin to (NORETHIN-E 00:00: 00:00 Famil y TH 00 :00 Practic ESTRAD-FE e BIPHAS) 1 MG-10 MCG / 10 MCG TABS (OMEPRAZOLE Yes Mayda 1 1 capsule [facility] ) 40 MG 8- Gabler by mouth Jacint o CPDR 00:00: every Family 00 morning Practic e (HYDROXYZIN 2016- No 1 tab By Sending [facility] E HCL) 50 -14 09- Mouth to Cindy Rosaura nto MG TABS 00:00: 00:00 Twice a Family 00 :00 Day for Practic anxiety e (HYDROXYZIN No 1 cap By Left in [facility] E PAMOATE) 04-19-17 Mouth Cindy's Rosaura nto 100 MG CAPS 00:00: 00:00 Twice a folder Family 00 :00 Day for for Rx Practic anxiety assistanc e e NORCO 5-325 No ctrl [place] MG ORAL 03-22 #[id number] Jacint o TABLET 00:00: 00:00 [id number] Family 00 :00 Practic e REGLAN No 1 by mouth [place] (METOCLOPRA 12-29 ac and Jacin to MIDE HCL) 00:00: 00:00 nightly at F amily 10 MG TABS 00 :00 bedtime Practi c e FLOMAX No 1 by mouth [place] (TAMSULOSIN 12-29 every day Ja genesis HCL) 0.4 MG 00:00: 00:00 until Fami ly CAPS 00 :00 stone Practic passed e NORCO 2016- No [place] 10-325 MG 12-29 Tk ORAL TABLET 00:00: 00:00 Famil y 00 :00 Practic e ATIVAN 2016- No 1 tab By Not [place] (LORAZEPAM) 12-15-10 Mouth sending Melvin into 1 MG TABS 00:00: 00:00 qdaily for any RX Family 00 :00 anxiety today Practic e VALIUM 2016- No 1 tab By [place] (DIAZEPAM) 12-01- Mouth Tk 2 MG TABS 00:00: 00:00 Three Family 00 :00 Times a Practic Day As e Needed anxiety (HALOPERIDO 2015-11- No 1 tab By S an L) 5 MG 01-17 05-10 Mouth take Jacin to TABS 00:00: 00:00 at bedtime Family 00 :00 for mood Practic e (HYDROXYZIN 2015-11- No 1 tab By S an E HCL) 50 2-17 12- Mouth Tk MG TABS 00:00: 00:00 Three Family 00 :00 Times a Practic Day As e Needed anxiety (METFORMIN 2015-11 Yes Mayda 1 1 tablet Sa n HCL) 500 MG 12-30 Gabler by mouth Ja genesis TABS 00:00: twice a Family 00 day Practic e (AMOXICILLI 2015-11- No 1 by mouth [place] N) 500 MG 12-30 2 times a Rosaura nto CAPS 00:00: 00:00 day Family 00 :00 Practic e LAMICTAL 2015-11 2016- No 1 tab By 340B [place] (LAMOTRIGIN 12-16 Mouth take J acinto E) 25 MG 00:00: 00:00 at bedtime Fa julius TABS 00 :00 x 1 week, Practic then 2 e tabs By Mouth take at bedtime x 1 week, then 3 tabs By Mouth take at bedtime x 1 week, then 4 tabs By Mouth at night Vital Signs Vital Name Observation Time Observation Value Comments Source Body height 2023-01-05 20:10:00 157.5 cm [facility] Body weight 2023-01-05 20:10:00 82.101 kg [facility] BMI 2023-01-05 20:10:00 33.11 kg/m2 [facility] Systolic blood 2022-11-24 16:43:00 101 mm[Hg] [facility] pressure Diastolic blood 2022-11-24 16:43:00 70 mm[Hg] [facility] pressure Heart rate 2022-11-24 16:43:00 73 /min [facility] Body temperature 2022-11-24 16:43:00 36.83 [facility] Respiratory rate 2022-11-24 16:43:00 16 /min [facility] Oxygen saturation in 2022-11-03 16:15:00 91 /min [facility] Arterial blood by Pulse oximetry weight E&M 2021-12-16 15:22:22 189 [lb_av] [facility] 2021-12-16 15:22:22 85.91 [facility] Health blood pressure, 2020-01-19 11:57:45 81 mm[Hg] Legac y [facility] diastolic Health blood pressure, 2020-01-19 11:57:45 134 mm[Hg] [facility] systolic Health pulse rate 2020-01-19 11:57:45 120 /min [facility] weight E&M 2020-01-19 11:57:45 205 [lb_av] [facility] weight in kilograms 2020-01-19 11:57:45 93.18 kg L [facility] E&M Health height in 2020-01-19 11:57:45 160.02 cm [facility] ommunity centimeters E&M Health Body Mass Index 2020-01-19 11:57:45 36.45 kg/m2 [facility] BMI (body mass 2020-01-19 11:57:45 n/a [facility] index) percentile Health blood pressure, 2019-10-05 14:35:38 63 mm[Hg] [facility] blood pressure, 2019-10-05 14:35:38 127 mm[Hg] [facility] systolic Health pulse rate 2019-10-05 14:35:38 102 /min [facility] weight E&M 2019-10-05 14:35:38 209 [lb_av] [facility] om[facility] Health weight in kilograms 2019-10-05 14:35:38 95 kg L [facility] E&M Health height in 2019-10-05 14:35:38 160.02 cm [facility] C ommunity centimeters E&M Health BMI (body mass 2019-10-05 14:35:38 n/a [facility] index) percentile Health Body Mass Index 2019-10-05 14:35:38 37.16 kg/m2 [facility] (Ratio) Health blood pressure, 2019-06-08 13:01:41 82 mm[Hg] [facility] diastolic Health blood pressure, 2019-06-08 13:01:41 124 mm[Hg] [facility] systolic Health pulse rate 2019-06-08 13:01:41 101 /min [facility] weight E&M 2019-06-08 13:01:41 207.60 [lb_av] [facility] weight in kilograms 2019-06-08 13:01:41 94.36 kg L [facility] E&M Health height in 2019-06-08 13:01:41 160.02 cm [facility] ommunity centimeters E&M Health BMI (body mass 2019-06-08 13:01:41 n/a [facility] index) percentile Health Body Mass Index 2019-06-08 13:01:41 36.91 kg/m2 [facility] blood pressure, 2019-04-06 14:44:44 83 mm[Hg] [facility] diastolic Health blood pressure, 2019-04-06 14:44:44 132 mm[Hg] [facility] y [facility] systolic Health pulse rate 2019-04-06 14:44:44 108 /min [facility] weight E&M 2019-04-06 14:44:44 208.13 [lb_av] [facility] Health weight in kilograms 2019-04-06 14:44:44 94.60 kg L [facility] E&M Health height in 2019-04-06 14:44:44 160.02 cm [facility] ommunity centimeters E&M Health BMI (body mass 2019-04-06 14:44:44 n/a [facility] index) percentile Health Body Mass Index 2019-04-06 14:44:44 37.00 kg/m2 [facility] ([facility] Health blood pressure, 2019-02-09 11:13:38 87 mm[Hg] [facility] diastolic Health blood pressure, 2019-02-09 11:13:38 136 mm[Hg] [facility] systolic Health pulse rate 2019-02-09 11:13:38 109 /min [facility] om[facility] Health weight E&M 2019-02-09 11:13:38 207.60 [lb_av] [facility] Health weight in kilograms 2019-02-09 11:13:38 94.36 kg L [facility] E&M Health height in 2019-02-09 11:13:38 160.02 cm [facility] ommunity centimeters E&M Health BMI (body mass 2019-02-09 11:13:38 n/a [facility] index) percentile Health Body Mass Index 2019-02-09 11:13:38 36.91 kg/m2 [facility] pulse rate 2018-12-09 10:46:41 108 /min [facility] om[facility]ity Health blood pressure, 2018-12-09 10:46:41 83 mm[Hg] [facility] diastolic Health blood pressure, 2018-12-09 10:46:41 131 mm[Hg] [facility] systolic Health weight E&M 2018-12-09 10:46:41 205.25 [lb_av] [facility] Health weight in kilograms 2018-12-09 10:46:41 93.30 kg L [facility] E&M Health height in 2018-12-09 10:46:41 160.02 cm [facility] ommunity centimeters E&M Health BMI (body mass 2018-12-09 10:46:41 n/a [facility] index) percentile Health Body Mass Index 2018-12-09 10:46:41 36.49 kg/m2 [facility] (Ratio) Health blood pressure, 2018-09-16 09:20:48 77 mm[Hg] [facility] diastolic Health blood pressure, 2018-09-16 09:20:48 124 mm[Hg] [facility] systolic Health pulse rate 2018-09-16 09:20:48 103 /min [facility] Health weight E&M 2018-09-16 09:20:48 203.25 [lb_av] [facility] Health weight in kilograms 2018-09-16 09:20:48 92.39 kg L [facility] E&M Health height in 2018-09-16 09:20:48 160.02 cm [facility] ommunity centimeters E&M Health Body Mass Index 2018-09-16 09:20:48 36.13 kg/m2 [facility] oxygen saturation, 2018-08-03 15:29:37 98 /min [facility] oximetry Health respiratory rate E&M 2018-08-03 15:29:37 18 /min [facility] Health pulse rate 2018-08-03 15:29:37 104 /min [facility] blood pressure, 2018-08-03 15:29:37 86 mm[Hg] [facility] diastolic Health blood pressure, 2018-08-03 15:29:37 145 mm[Hg] [facility] systolic Health weight E&M 2018-08-03 15:29:37 199.13 [lb_av] [facility] Health weight in kilograms 2018-08-03 15:29:37 90.51 kg L [facility] E&M Health height in 2018-08-03 15:29:37 160.02 cm [facility] E&M Health Body Mass Index 2018-08-03 15:29:37 35.40 kg/m2 [facility] ([facility]) Health temperature site 2018-08-03 15:29:37 oral [facility] temperature site 2018-08-03 15:29:37 oral Lega cy [facility] Health blood pressure, 2018-06-29 10:38:06 67 mm[Hg] [facility] diastolic Health blood pressure, 2018-06-29 10:38:06 104 mm[Hg] [facility] systolic Health pulse rate 2018-06-29 10:38:06 108 /min [facility] weight E&M 2018-06-29 10:38:06 201.40 [lb_av] [facility] weight in kilograms 2018-06-29 10:38:06 91.55 kg L [facility] E&M Health height E&M 2018-06-29 10:38:06 63 [in_i] [facility] Body Mass Index 2018-06-29 10:38:06 35.81 kg/m2 [facility] ([facility]) Health blood pressure, 2018-04-14 12:42:55 69 mm[Hg] [facility] diastolic Health blood pressure, 2018-04-14 12:42:55 102 mm[Hg] [facility] systolic Health pulse rate 2018-04-14 12:42:55 101 /min [facility] weight E&M 2018-04-14 12:42:55 204.20 [lb_av] [facility] weight in kilograms 2018-04-14 12:42:55 92.82 kg L [facility] E[facility]M Health height in 2018-04-14 12:42:55 160.02 cm [facility] centimeters E&M Health Body Mass Index 2018-04-14 12:42:55 36.30 kg/m2 [facility] ([facility]) Health blood pressure, 2018-01-06 17:38:19 66 mm[Hg] [facility] diastolic Health blood pressure, 2018-01-06 17:38:19 114 mm[Hg] [facility] systolic Health pulse rate 2018-01-06 17:38:19 123 /min [facility] weight E&M 2018-01-06 17:38:19 197.20 [lb_av] [facility] Health weight in kilograms 2018-01-06 17:38:19 89.64 kg L [facility] E&M Health height in 2018-01-06 17:38:19 160.02 cm [facility] centimeters E&M Health Body Mass Index 2018-01-06 17:38:19 35.06 kg/m2 [facility] ([facility]) Health oxygen saturation, 2017-11-16 13:59:38 97 /min [facility] oximetry Health blood pressure, 2017-11-16 13:59:38 83 mm[Hg] [facility] blood pressure, 2017-11-16 13:59:38 122 mm[Hg] [facility] systolic Health respiratory rate E&M 2017-11-16 13:59:38 24 /min [facility] Health pulse rate 2017-11-16 13:59:38 96 /min [facility] Health temperature E&M 2017-11-16 13:59:38 98.1 [degF] [facility] weight E&M 2017-11-16 13:59:38 200.20 [lb_av] [facility] Health weight in kilograms 2017-11-16 13:59:38 91 kg L [facility] E&M Health height in 2017-11-16 13:59:38 160.02 cm [facility] centimeters E&M Health Body Mass Index 2017-11-16 13:59:38 35.59 kg/m2 [facility] (Ratio) Health pulse rate 2017-09-09 13:01:00 98 /min [facility] Health blood pressure, 2017-09-09 13:01:00 67 mm[Hg] [facility] diastolic Health blood pressure, 2017-09-09 13:01:00 100 mm[Hg] [facility] systolic Health weight E&M 2017-09-09 13:01:00 205.38 [lb_av] [facility] Health weight in kilograms 2017-09-09 13:01:00 93.35 kg L [facility]M Health height in 2017-09-09 13:01:00 160.02 cm [facility] E& Health Body Mass Index 2017-09-09 13:01:00 36.51 kg/m2 [facility] ([facility]) Health oxygen saturation, 2017-09-03 15:19:31 99 /min [facility] oximetry Health blood pressure, 2017-09-03 15:19:31 74 mm[Hg] [facility] diastolic Health blood pressure, 2017-09-03 15:19:31 114 mm[Hg] [facility] systolic Health respiratory rate E&M 2017-09-03 15:19:31 18 /min [facility] Health pulse rate 2017-09-03 15:19:31 101 [facility] temperature E&M 2017-09-03 15:19:31 98.7 [degF] [facility] weight E&M 2017-09-03 15:19:31 202 [lb_av] [facility] in kilograms 2017-09-03 15:19:31 91.82 kg [facility] E&M Health height in 2017-09-03 15:19:31 [facility] [address] [facility] E&M Health temperature site 2017-09-03 15:19:31 oral Lega [facility] Health Body Mass Index 2017-09-03 15:19:31 35.91 kg/m2 [facility] ([facility]) Health temperature site 2017-09-03 15:19:31 [facility] respiratory rate E&M 2017-08-31 12:11:00 23 /min [facility] Health pulse rate 2017-08-31 12:11:00 105 /min [facility] Health oxygen saturation, 2017-08-31 12:11:00 98 /min [facility] oximetry Health blood pressure, 2017-08-31 12:11:00 81 mm[Hg] [facility] diastolic Health blood pressure, 2017-08-31 12:11:00 123 mm[Hg] [facility] systolic Health temperature E&M 2017-08-31 12:11:00 98.5 [degF] [facility] Health weight E&M 2017-08-31 12:11:00 200.20 [lb_av] [facility] Health weight in kilograms 2017-08-31 12:11:00 91 kg L [facility] E& Health height in 2017-08-31 12:11:00 160.02 cm [facility] ommunity centimeters E&M [facility] site 2017-08-31 12:11:00 oral Lega cy [facility] Health Body Mass Index 2017-08-31 12:11:00 35.59 kg/m2 [facility] (Ratio) [facility] site 2017-08-31 12:11:00 oral Lega cy [facility] Health pulse rate 2017-07-15 15:52:20 95 /min [facility] respiratory rate E&M 2017-07-15 15:52:20 22 /min [facility] Health blood pressure, 2017-07-15 15:52:20 78 mm[Hg] [facility] diastolic Health blood pressure, 2017-07-15 15:52:20 118 mm[Hg] [facility] systolic Health oxygen saturation, 2017-07-15 15:52:20 95 /min [facility] oximetry Health temperature E&M 2017-07-15 15:52:20 97.8 [degF] [facility] Health weight E&M 2017-07-15 15:52:20 197.80 [lb_av] [facility] Health weight in kilograms 2017-07-15 15:52:20 89.91 kg L [facility] E& Health height in 2017-07-15 15:52:20 160.02 cm [facility] E[facility]M [facility] site 2017-07-15 15:52:20 oral Lega cy [facility] Health Body Mass Index 2017-07-15 15:52:20 35.17 kg/m2 [facility] (Ratio) [facility] site 2017-07-15 15:52:20 oral Lega cy [facility] Health pulse rate 2017-07-15 14:13:16 111 /min [facility] blood pressure, 2017-07-15 14:13:16 72 mm[Hg] [facility] diastolic Health blood pressure, 2017-07-15 14:13:16 108 mm[Hg] [facility] systolic Health weight E&M 2017-07-15 14:13:16 197.50 [lb_av] [facility] Health weight in kilograms 2017-07-15 14:13:16 89.77 kg L [facility] E&M Health height in 2017-07-15 14:13:16 160.[facility] E[facility]M Health Body Mass Index 2017-07-15 14:13:16 35.11 kg/m2 [facility] pulse rate 2017-04-07 13:46:18 92 /min [facility] Health blood pressure, 2017-04-07 13:46:18 71 mm[Hg] [facility] blood pressure, 2017-04-07 13:46:18 109 mm[Hg] [facility] systolic Health weight E&M 2017-04-07 13:46:18 207.13 [lb_av] [facility] Health weight in kilograms 2017-04-07 13:46:18 94.15 kg L [facility] E&M Health height in 2017-04-07 13:46:18 160.02 cm [facility] ommunity centimeters E&M Health Body Mass Index 2017-04-07 13:46:18 36.82 kg/m2 [facility] Health pulse rate 2017-03-22 10:23:01 90 /min [facility] Health respiratory rate E&M 2017-03-22 10:23:01 21 /min [facility] oxygen saturation, 2017-03-22 10:23:01 97 /min [facility] oximetry Health blood pressure, 2017-03-22 10:23:01 81 mm[Hg] [facility] diastolic Health blood pressure, 2017-03-22 10:23:01 121 mm[Hg] [facility] systolic Health weight E&M 2017-03-22 10:23:01 206.60 [lb_av] [facility] Health weight in kilograms 2017-03-22 10:23:01 93.91 kg L [facility] E&M Health height in 2017-03-22 10:23:01 160.02 cm [facility] ommunity centimeters E&M Health temperature E&M 2017-03-22 10:23:01 98.4 [degF] [facility] Health temperature site 2017-03-22 10:23:01 oral Lega [facility] Health Body Mass Index 2017-03-22 10:23:01 36.73 kg/m2 [facility] ([facility]) Health temperature site 2017-03-22 10:23:01 oral Lega cy [facility] Health pulse rate 2016-12-29 13:59:05 93 /min [facility] blood pressure, 2016-12-29 13:59:05 65 mm[Hg] [facility] diastolic Health blood pressure, 2016-12-29 13:59:05 101 mm[Hg] [facility] systolic Health height in 2016-12-29 13:59:05 160.02 cm [facility] ommunity centimeters E&M Health weight E&M 2016-12-29 13:59:05 200 [lb_av] [facility] weight in kilograms 2016-12-29 13:59:05 90.91 kg L [facility] E& Health Body Mass Index 2016-12-29 13:59:05 35.56 kg/m2 [facility] ([facility]) Health oxygen saturation, 2016-12-29 10:07:59 99 /min [facility] oximetry Health blood pressure, 2016-12-29 10:07:59 82 mm[Hg] [facility] diastolic Health blood pressure, 2016-12-29 10:07:59 119 mm[Hg] [facility] systolic Health respiratory rate E&M 2016-12-29 10:07:59 17 /min [facility] Health pulse rate 2016-12-29 10:07:59 90 /min [facility] temperature E&M 2016-12-29 10:07:59 98.4 [degF] [facility] Health weight E&M 2016-12-29 10:07:59 198 [lb_av] [facility] weight in kilograms 2016-12-29 10:07:59 90 kg L [facility] E&M Health height in 2016-12-29 10:07:59 160.02 cm [facility] centimeters E&M Health temperature site 2016-12-29 10:07:59 tympanic Lega cy [facility] Health Body Mass Index 2016-12-29 10:07:59 35.20 kg/m2 [facility] ([facility]) Health temperature site 2016-12-29 10:07:59 tympanic Lega cy [facility] Health pulse rate 2016-12-15 15:50:23 85 /min [facility] blood pressure, 2016-12-15 15:50:23 75 mm[Hg] [facility] diastolic Health blood pressure, 2016-12-15 15:50:23 114 mm[Hg] [facility] systolic Health weight E&M 2016-12-15 15:50:23 198.25 [lb_av] [facility] weight in kilograms 2016-12-15 15:50:23 90.11 kg L [facility] E&M Health height in 2016-12-15 15:50:23 160.02 cm [facility] ommunity centimeters E&M Health Body Mass Index 2016-12-15 15:50:23 35.25 kg/m2 [facility] ([facility]) Health blood pressure, 2016-12-01 16:53:06 72 mm[Hg] [facility] diastolic Health blood pressure, 2016-12-01 16:53:06 118 mm[Hg] [facility] systolic Health pulse rate 2016-12-01 16:53:06 84 /min [facility] weight E&M 2016-12-01 16:53:06 190 [lb_av] [facility] om[facility] Health weight in kilograms 2016-12-01 16:53:06 86.36 kg L [facility] E&M Health height in 2016-12-01 16:53:06 160.02 cm [facility] ommunity centimeters E&M Health Body Mass Index 2016-12-01 16:53:06 33.78 kg/m2 [facility] ([facility]) Health pulse rate 2016-11-16 10:21:12 101 /min [facility] blood pressure, 2016-11-16 10:21:12 79 mm[Hg] [facility] diastolic Health blood pressure, 2016-11-16 10:21:12 120 mm[Hg] [facility] systolic Health weight E&M 2016-11-16 10:21:12 195.38 [lb_av] [facility] weight in kilograms 2016-11-16 10:21:12 88.81 kg L [facility] E&M Health height in 2016-11-16 10:21:12 160.02 cm [facility] ommunity centimeters E&M Health Body Mass Index 2016-11-16 10:21:12 34.74 kg/m2 [facility] ([facility]) Health oxygen saturation, 2016-10-29 10:46:49 94 /min Jeny hilton [facility] oximetry Health blood pressure, 2016-10-29 10:46:49 87 mm[Hg] [facility] diastolic Health blood pressure, 2016-10-29 10:46:49 124 mm[Hg] [facility] systolic Health respiratory rate E&M 2016-10-29 10:46:49 16 /min [facility] Health pulse rate 2016-10-29 10:46:49 97 /min [facility] Health temperature E&M 2016-10-29 10:46:49 98.5 [degF] [facility] weight E&M 2016-10-29 10:46:49 197 [lb_av] [facility] weight in kilograms 2016-10-29 10:46:49 89.55 kg L [facility] E&M Health height in 2016-10-29 10:46:49 160.[facility] E&M [facility] temperature site 2016-10-29 10:46:49 oral Lega [facility] Body Mass Index 2016-10-29 10:46:49 35.02 kg/m2 [facility] (Ratio) Health temperature site 2016-10-29 10:46:49 oral Lega [facility] blood pressure, 2016-10-16 10:51:42 78 mm[Hg] [facility] diastolic Health blood pressure, 2016-10-16 10:51:42 130 mm[Hg] [facility] systolic Health pulse rate 2016-10-16 10:51:42 96 /[facility] weight E&M 2016-10-16 10:51:42 191.40 [lb_av] [facility] Health weight in kilograms 2016-10-16 10:51:42 87 kg L [facility] E&M Health height in 2016-10-16 10:51:42 160.02 cm [facility] ommunity centimeters E&M Health Body Mass Index 2016-10-16 10:51:42 34.03 kg/m2 [facility] ([facility]) Health Procedures Procedure Date / Time Performing Clinician Source Performed ELECTROMYOGRAPHY STUDIES 2022-11-27 00:00[facility]+ VW LEFT 2022-11-17 19:44:10 [facility] XR HIP 2-3 VIEWS RIGHT 2022-11-17 19:44:10 [facility] POC GLUCOSE 2022-11-03 14:27:00 [facility] ANESTHESIA INTUBATION 2022-11-03 13:33:00 Bing Orellana [facility] EXTRACORPOREAL SHOCKWAVE 2022-11-03 13:26:00 [facility] LITHOTRIPSY (ESWL) POC GLUCOSE 2022-11-03 12:12:00 [facility] COVID-19 QUALITATIVE 2022-10-29 17:18:00 [facility] RT-PCR ECG 12-LEAD 2022-10-29 15:47:36 Mayda King spital CBC WITH PLATELET AND 2022-10-29 15:[facility]OL[facility] PANEL 2022-10-29 15:41:00 [facility] ESTIMATED GFR 2022-10-29 15:41:00 Elzbieta [facility] spital URINALYSIS SCREEN AND 2022-10-29 15:18:00 [facility] MICROSCOPY, WITH REFLEX TO CULTURE XR KUB KIDNEY URETER 2022-10-15 19:16:28 [facility] URINALYSIS SCREEN AND 2022-10-10 10:09:00 [facility] MICROSCOPY, WITH REFLEX TO CULTURE CARCINOEMBRYONIC ANTIGEN 2022-09-22 14:55:00 Ezra Rodríguez [facility] (CEA) CANCER ANTIGEN 19-9 2022-09-22 14:55:00 Ezra Rodríguez [facility] CANCER ANTIGEN 125 2022-09-22 14:55:00 Ezra Rodríguez [facility] COMPREHENSIVE METABOLIC 2022-09-22 14:55:00 Ezra Rodríguez [facility] PANEL CBC WITH PLATELET AND 2022-09-22 14:55:00 [facility] DIFFERENTIAL TOTAL IRON BINDING 2022-09-22 14:55:00 [facility] CAPACITY FERRITIN LEVEL 2022-09-22 14:55:00 [facility] HEMOGLOBIN A1C 2022-09-22 14:55:00 [facility] CANCER ANTIGEN 15-3 2022-09-22 14:55:00 [facility] ALPHA FETOPROTEIN 2022-09-22 14:55:00 [facility] FL UGI W AIR HD BA W OR WO 2022-09-21 13:31:45 Ezra Rodríguez [facility] KUB URINE CULTURE 2022-07-15 18:23:00 [facility] CT RENAL STONE PROTOCOL 2022-07-15 18:08:27 [facility] CBC WITH PLATELET AND 2022-07-15 16:03:00 [facility] DIFFERENTIAL COMPREHENSIVE METABOLIC 2022-07-15 16:03:00 [facility] PANEL LIPASE LEVEL 2022-07-15 16:03:[address] [facility] HCG QUALITATIVE, SERUM 2022-07-15 16:03:00 [facility] SCREEN ESTIMATED GFR 2022-07-15 16:03:[address] [facility] URINALYSIS SCREEN AND 2022-07-15 15:41:00 [facility] MICROSCOPY, WITH REFLEX TO CULTURE CA ARTHROCENTESIS 2022-04-22 14:40:00 Jazmyne Brandon [facility] ASPIR&/INJ MAJOR JT/BURSA W/US XR KNEE 4+ VW LEFT 2022-04-22 14:36:07 Jazmyne Brandon [facility] Addiction Recovery Social 2022-02-09 15:14:14 Tariq [facility] - 2021-02-28 14:21:37 Atri, Tariq [facility] Addiction Recovery Social 2020-09-05 10:05:11 Henna Phillip [facility] Work Health Health Consultant 2020-09-02 14:37:27 Tariq Kelly [facility] Behavioral Health - 2020-07-08 13:41:17 Tariq Kelly [facility] Behavioral Health - 2018-01-06 18:15:02 Tariq Kelly C [facility] Therapy [facility] Rapid Flu - In House 2016-10-29 11:15:54 [facility] 2016-10-16 11:53:08 Tariq Kelly [facility] Diagnostic evaluation with 2016-10-16 11:47:58 Tariq Kelly [facility] - [address] Health Plan of Care Planned Activity Planned Date Details Comments Source Future Scheduled 2023-01-28 [facility] C [facility] 14:43:08 (procedure) [code = 348290682] Future Scheduled 2023-01-28 [facility] 14:43:08 malignant neoplasm of cervix (procedure) [code = 718295797] Future Scheduled 2023-01-28 BREAST CANCER [facility] Test 14:43:08 SCREENING [code = BREAST CANCER SCREENING] Future Scheduled 2023-01-28 [facility]ONOSCOPY SCRE[facility]ING [facility] 14:43:08 [code = COLONOSCOPY SCREENING] Future Scheduled 2023-01-28 COVID-19 VACCINE (3 - [facility] 14:43:08 Booster for Moderna series) [code = COVID-19 VACCINE (3 - Booster for Moderna series)] Future Scheduled 2023-01-28 [facility]UENZA [facility]ACCINE [facility] 14:43:08 [code = INFLUENZA VACCINE] Future Scheduled 2023-01-28 [facility] C [facility] 14:43:08 (procedure) [code = 478678186] Future Scheduled 2023-01-28 Screening [facility] Test 14:43:08 malignant neoplasm of cervix (procedure) [code = 598576706] Future Scheduled 2023-01-28 BREAST CANCER [facility] Test 14:43:08 SCREENING [code = BREAST CANCER SCREENING] Future Scheduled 2023-01-28 [facility]OSCOPY [facility]CRE[facility]ING [facility] 14:43:08 [code = COLONOSCOPY SCREENING] Future Scheduled 2023-01-28 COVID-19 VACCINE (3 - Me [facility] Test 14:43:08 Booster for Moderna series) [code = COVID-19 VACCINE (3 - Booster for Moderna series)] Future Scheduled 2023-01-28 INFLUENZA VACCINE [facility] 14:43:08 [code = INFLUENZA VACCINE] Future Scheduled 2023-01-28 Hepatitis C screening [facility] Test 14:43:08 (procedure) [code = 294118576] Future Scheduled 2023-01-28 Screening for [facility] Test 14:43:08 malignant neoplasm of cervix (procedure) [code = 888256321] Future Scheduled 2023-01-28 BREAST CANCER [facility] Test 14:43:08 SCREENING [code = BREAST CANCER SCREENING] Future Scheduled 2023-01-28 COLONOSCOPY SCREENING [facility] Test 14:43:08 [code = COLONOSCOPY SCREENING] Future Scheduled 2023-01-28 COVID-19 VACCINE (3 - Me [facility] Test 14:43:08 Booster for Moderna series) [code = COVID-19 VACCINE (3 - Booster for Moderna series)] Future Scheduled 2023-01-28 INFLUENZA VACCINE [facility] Test 14:43:08 [code = INFLUENZA VACCINE] Encounters Start End Encounter Admission Attending Care Care Encounter Source Date/Time Date/Time Type Type Clinicians Facility Department ID 2023-01-21 Outpatient [email or web address] [facility] [id number] [facility] 15:53:02 [id number] [facility] 2023-01-20 Outpatient lc.[email or web address] [facility] [id number] 2 [facility] 13:09:02 [id number] [facility] 2023-01-02 Outpatient lc.aatri [facility] [id number] 2 [facility] 05:28:39 [id number] [facility] 2022-12-25 Outpatient lc.aatri [facility] [id number] 2 [facility] 20:11:30 [facility] 2022-11-24 Outpatient lc.aatri [facility] [id number] 2 [facility] 11:57:03 [facility] 2022-09-21 Outpatient lc.[email or web address] [facility] [id number] 2 [facility] 12:05:06 [facility] 2022-02-21 Outpatient [facility] [id number] Sel[place] 07:43:22 [id number] [facility] 2023-02-08 2023-02-[address] [facility] [id number] [place] 17:43:36 17:43:36 [id number] F Kiel 2023-01-28 2023-01-28 Treatment Jazmyne Brandon 1.2.840.1 104 [id number] Methodi 14:00:00 15:00:00 Jarek Fernando [address]02.1.[address] 3.430.2.7 Hospit a .3.110605 l .8 2023-01-28 2023-01-28 Travel 1.2.840.1 1.2.372.587 2912 954146 Methodi 00:00:00 00:00:[address] 3.430.2.7 0.2.7.3.698 Ho spita .3.948594 084.8 l .8 2023-01-25 2023-01-25 Treatment Jazmyne Brandon 1.2.840.1 104 [id number] Methodi 11:00:00 12:00:00 Jarek Fernando [address]87.1.[address] 3.430.2.7 Hospit a .3.393728 l .8 2023-01-25 2023-01-25 [facility]/ [facility] 00:00:00 00:00:00 encounter o, Behavioral [id number] [facility] [id number] [facility] 2023-01-25 2023-01-25 In-person Leoz-Calliz [facility] [id number] [facility] 00:00:00 00:00:00 encounter o, Behavioral 93101 C [facility] 2023-01-25 2023-01-25 Refill Vivi, 1.2.840.1 [id number] 2723 Methodi 00:00:00 00:00:[address] 3.430.2.7 Hospit a .3.373178 l .8 2023-01-25 2023-01-25 Travel 1.2.840.1 1.2.902.810 7535 143817 Methodi 00:00:00 00:00:[address] 3.430.2.7 0.2.7.3.698 Ho spita .3.746229 084.8 l .8 2023-01-21 2023-01-21 Evaluation Jazmyne Brandon 1.2.840.1 10 [id number] Methodi 08:00:00 09:00:00 Jarek Fernando [address].1.[address] 3.430.2.7 Hospit a .3.084993 l .8 2023-01-21 2023-01-21 Travel 1.2.840.1 1.2.783.869 8651 222344 Methodi 00:00:00 00:00:[address] 3.430.2.7 0.2.7.3.698 Ho spita .3.451648 084.8 l .8 2023-01-18 2023-01-18 Treatment Jazmyne Brandon 1.2.840.1 104 313473 [id number] Methodi 15:00:00 16:00:00 Jarek Fernando [address]10.1.[address] 3.430.2.7 Hospit a .3.799659 l .8 2023-01-18 2023-01-18 Travel 1.2.840.1 1.2.271.116 3785 489882 Methodi 00:00:00 00:00:[address] 3.430.2.7 0.2.7.3.698 Ho spita .3.317055 084.8 l .8 2023-01-11 2023-01-11 Treatment Jazmyne Brandon 1.2.840.1 104 129818 [id number] Methodi 15:00:00 16:00:00 Jarek Fernando [address]1.[address] 3.430.2.7 Hospit a .3.571883 l .8 2023-01-11 2023-01-11 Travel 1.2.840.1 1.2.471.254 6495 602278 Methodi 00:00:00 00:00:[address] 3.430.2.7 0.2.7.3.698 Ho spita .3.619696 084.8 l .8 2023-01-07 2023-01-07 Treatment Jazmyne Brandon 1.2.840.1 104 768578 [id number] Methodi 12:00:00 13:00:00 Jarek Fernando [address]45.1.[address] 3.430.2.7 Hospit a .3.059637 l .8 2023-01-07 2023-01-07 Travel 1.2.840.1 1.2.040.476 6460 348281 Methodi 00:00:00 00:00:[address] 3.430.2.7 0.2.7.3.698 Ho spita .3.798309 084.8 l .8 2023-01-05 2023-01-05 Office Jazmyne Brandon 1.2.840.1 [id number] Methodi 14:20:00 14:38:26 Visit Larry 63752.1.[address] 3.430.2.7 Hospit a .3.319577 l .8 2023-01-05 2023-01-05 Travel 1.2.840.1 1.2.177.879 5324 953793 Methodi 00:00:00 00:00:[address] 3.430.2.7 0.2.7.3.698 Ho spita .3.502761 084.8 l .8 2022-12-31 2022-12-31 Treatment Suresh Montanez 1.2.840 .1 [id number] Methodi 10:00:00 11:00:00 Jarek Fernando [address].1.[address] 3.430.2.7 Hospit a .3.445277 l .8 2022-12-31 2022-12-31 Travel 1.2.840.1 1.2.046.309 4288 000856 Methodi 00:00:00 00:00:[address] 3.430.2.7 0.2.7.3.698 Ho spita .3.889990 084.8 l .8 2022-12-28 2022-12-28 Evaluation Jazmyne Brandon 1.2.840.1 10 [id number] [id number] Methodi 10:00:00 11:00:00 Jarek [address]1.[address] 3.430.2.7 Hospit a .3.520238 l .8 2022-12-28 2022-12-28 Plan of 1.2.840.1 [id number] 221795 1282 Methodi 00:00:00 00:00:[address] Documentat 3.430.2.7 Hos surekha ion .3.696321 l .8 2022-12-28 2022-12-28 Travel 1.2.840.1 1.2.966.029 5049 789336 Methodi 00:00:00 00:00:[address] 3.430.2.7 0.2.7.3.698 Ho spita .3.655169 084.8 l .8 2022-12-16 2022-12-16 Travel 1.2.840.1 1.2.688.633 9372 893835 Methodi 00:00:00 00:00:[address] 3.430.2.7 0.2.7.3.698 Ho spita .3.622924 084.8 l .8 2022-12-15 2022-12-15 Office Jazmyne Brandon 1.2.840.1 [id number] 21 [id number] Methodi 14:40:00 15:15:08 Alexus Juarez 74560.1.[address] 3.430.2.7 Hospit a .3.402461 l .8 2022-12-15 2022-12-15 Orders Maurice Browne 1.2.840.1 [id number] 21 [id number] Methodi 00:00:00 00:00:[address] 3.430.2.7 Hospit a .3.400661 l .8 2022-12-08 2022-12-08 Office Jazmyne Brandon 1.2.840.1 [id number] 21 [id number] Methodi 09:00:00 09:07:32 Visit Larry 63126.1.[address] 3.430.2.7 Hospit a .3.807726 l .8 2022-12-08 2022-12-08 Travel 1.2.840.1 1.2.273.250 6628 953509 Methodi 00:00:00 00:00:[address] 3.430.2.7 0.2.7.3.698 Ho spita .3.382330 084.8 l .8 2022-12-08 2022-12-08 Telephone Marie, 1.2.840.1 [id number] 2099 477593 Methodi 00:00:00 00:00:[address] 3.430.2.7 Hospit a .3.997209 l .8 2022-12-02 2022-12-02 Office Jazmyne Brandon 1.2.840.1 [id number] Methodi 11:00:00 11:34:52 Visit Larry 67623.1.[address] 3.430.2.7 Hospit a .3.144837 l .8 2022-12-02 2022-12-02 Telephone Cynthia 1.2.840.1 [id number] 2099 797473 Methodi 00:00:00 00:00:[address] 3.430.2.7 Hospit a .3.251237 l .8 2022-12-02 2022-12-02 Telephone Marie, 1.2.840.1 [id number] 2100 720921 Methodi 00:00:00 00:00:[address] 3.430.2.7 Hospit a .3.214894 l .8 2022-12-02 2022-12-02 Travel 1.2.840.1 1.2.470.189 6830 686392 Methodi 00:00:00 00:00:[address] 3.430.2.7 0.2.7.3.698 Ho spita .3.454948 084.8 l .8 2022-11-24 2022-11-24 Procedure Brumelissa, 1.2.840.1 [id number] 2099 316724 Methodi 10:40:00 11:42:55 visit Elizabeth Corrales 98644.1.[address] 3.430.2.7 Hospit a .3.799629 l .8 2022-11-23 2022-11-23 Refill Anne, 1.2.840.1 [id number] 56826 64971 Methodi 00:00:00 00:00:[address] Jazmyne 3.430.2.7 Hospit a .3.757518 l .8 2022-11-17 2022-11-17 Office Jazmyne Brandon 1.2.840.1 [id number] 21 [id number] Methodi 13:20:00 14:03:16 Visit Larry 35148.1.[address] 3.430.2.7 Hospit a .3.576854 l .8 2022-11-17 2022-11-17 Orders Marie, 1.2.840.1 [id number] 818701 6266 Methodi 00:00:00 00:00:00 Only Justine 95336.1.[address] 3.430.2.7 Hospit a .3.763865 l .8 2022-11-17 2022-11-17 Travel 1.2.840.1 1.2.629.082 6050 835351 Methodi 00:00:00 00:00:[address] 3.430.2.7 0.2.7.3.698 Ho spita .3.160674 084.8 l .8 2022-11-17 2022-11-17 Outpatient JAZMYNE BRANDON [facility] 611 [id number] [place] 00:00:00 00:00:[address] 2022-11-13 2022-11-13 Office Keren Vasquez 1.2.840.1 [id number] 2100 222388 Methodi 10:00:00 10:43:[address] 3.430.2.7 Hospit a .3.189737 l .8 2022-11-09 2022-11-09 In-person oz-Calliz [facility] [id number] [facility] 00:00:00 00:00:00 encounter o, Behavioral 38089 C [facility] 2022-11-09 2022-11-09 In-person Leoz-Calliz [facility] Encounter/ Legacy 00:00:00 00:00:00 encounter o, Behavioral [id number] 9 [facility] 332590 [facility] 2022-11-03 2022-11-03 [facility], 1.2.840.1 [id number] 2100 197638 Methodi 05:30:00 10:47:00 Encounter Maria Teresa 04113.1.[address] 3.430.2.7 Hospit a .3.138218 l .8 2022-11-03 2022-11-03 Surgery [facility], 1.2.840.1 [id number] 43154 08081 Methodi 07:30:00 08:45:00 Maria Teresa 47896.1.[address] 3.430.2.7 Hospit a .3.084646 l .8 2022-11-03 2022-11-03 Anesthesia Bing Orellana 1.2.840.1 10 [id number] Methodi 07:26:00 08:27:00 Event Kmi Dumont 37247.1.[address] 3.430.2.7 Hospit a .3.574955 l .8 2022-11-03 2022-11-03 Travel 1.2.840.1 1.2.567.489 3010 563530 Methodi 00:00:00 00:00:[address] 3.430.2.7 0.2.7.3.698 Ho spita .3.660630 084.8 l .8 2022-10-29 2022-10-29 Pre-Admiss Dada, 1.2.840.1 [id number] 21 [id number] Methodi 09:00:00 09:31:55 ion Maria Teresa 34559.1.[address] Testing 3.430.2.7 Hospit a .3.129407 l .8 2022-10-29 2022-10-29 Travel 1.2.840.1 1.2.766.397 5122 208548 Methodi 00:00:00 00:00:[address] 3.430.2.7 0.2.7.3.698 Ho spita .3.420204 084.8 l .8 2022-10-20 2022-10-20 Orders Marie, 1.2.840.1 [id number] 335121 9244 Methodi 00:00:00 00:00:00 Only Justine 18975.1.[address] 3.430.2.7 Hospit a .3.279501 l .8 2022-10-19 2022-10-19 Telephone Dada, 1.2.840.1 [id number] 177 [id number] Methodi 00:00:00 00:00:00 Maria Teresa 50533.1.[address] 3.430.2.7 Hospit a .3.961514 l .8 2022-10-15 2022-10-15 [facility]patient [facility] [id number] 9894 [place] 00:00:00 00:00:00 MARIA TERESA [address] 2022-10-14 2022-10-14 Orders Sullivan, 1.2.840.1 [id number] 2100 521540 Methodi 00:00:00 00:00:00 Only Lesia 30963.1.[address] 3.430.2.7 Hospit a .3.023265 l .8 2022-10-10 2022-10-10 Orders Sullivan, 1.2.840.1 [id number] 2100 251660 Methodi 00:00:00 00:00:00 Only Lesia 37806.1.[address] 3.430.2.7 Hospit a .3.041488 l .8 2022-10-09 2022-10-09 Office Sullivan, 1.2.840.1 [id number] 2100 299731 Methodi 10:15:00 10:47:54 Visit Lesia 01061.1.[address] 3.430.2.7 Hospit a .3.142475 l .8 2022-10-09 2022-10-09 Prep for Dada, 1.2.840.1 [id number] 2100 566184 Methodi 00:00:00 00:00:00 Surgery Christopher 08214.1.[address] 3.430.2.7 Hospit a .3.123751 l .8 2022-10-09 2022-10-09 Orders Sullivan, 1.2.840.1 [id number] 2100 560719 Methodi 00:00:00 00:00:00 Only Lesia 01959.1.[address] 3.430.2.7 Hospit a .3.637025 l .8 2022-10-09 2022-10-09 Travel 1.2.840.1 1.2.817.813 8382 104349 Methodi 00:00:00 00:00:[address] 3.430.2.7 0.2.7.3.698 Ho spita .3.608000 084.8 l .8 2022-10-02 2022-10-02 Orders Anne, 1.2.840.1 [id number] 82649 Methodi 00:00:00 00:00:00 Only Ezra 26588.1.[address] Jazmyne 3.430.2.7 Hospit a .3.447323 l .8 2022-09-21 2022-09-21 Travel 1.2.840.1 1.2.666.595 4994 009136 Methodi 00:00:00 00:00:[address] 3.430.2.7 0.2.7.3.698 Ho spita .3.784919 084.8 l .8 2022-09-21 2022-09-21 Outpatient [facility] [id number] 928 [place] 00:00:00 00:00:00 EVELYNE [address] 2022-09-16 2022-09-16 Travel 1.2.840.1 1.2.100.643 6702 432710 Methodi 00:00:00 00:00:[address] 3.430.2.7 0.2.7.3.698 Ho spita .3.848910 084.8 l .8 2022-09-09 2022-09-15 Office Anne, 1.2.840.1 [id number] 02669 37641 Methodi 09:00:00 17:47:50 Visit Ezra 50502.1.[address] Jazmyne 3.430.2.7 Hospit a .3.755657 l .8 2022-09-09 2022-09-09 Travel 1.2.840.1 1.2.188.006 5010 965037 Methodi 00:00:00 00:00:[address] 3.430.2.7 0.2.7.3.698 Ho spita .3.254426 084.8 l .8 2022-08-28 2022-08-28 Orders Alcala 1.2.840.1 [id number] 853043 0964 Methodi 00:00:00 00:00:00 Only Marco, 20673.1.[address] Nafisa 3.430.2.7 Hospit a .3.901846 l .8 2022-08-24 2022-08-24 Outpatient GC_WHCBAY_C PRIV PRIV 177 03076-3 [place] 00:00:00 00:00:00 rate_E 4470710 Medica l 2022-08-06 2022-08-07 Office Leoz-Calliz [facility] Encoun ter/ Legacy 00:00:00 00:00:00 Visit o, [id number] Com yanely Marinellimo 513426 [facility] 2022-08-06 2022-08-07 In-person oz-[facility] Jacinto 834065-344 [facility] 00:00:00 00:00:00 encounter o, Behavioral 60650 C [facility] 2022-08-06 2022-08-06 Refill Chelsea, 1.2.840.1 [id number] 137372 6361 Methodi 00:00:00 00:00:00 Evelyne Hunter [address]4846.1.[address] 3.430.2.7 Hospit a .3.399100 l .8 2022-08-02 2022-08-02 Documentat Dada, 1.2.840.1 [id number] [id number] Methodi 00:00:00 00:00:00 ion Maria Teresa 33310.1.[address] 3.430.2.7 Hospit a .3.857419 l .8 2022-07-31 2022-07-31 Telephone Laurie 1.2.840.1 [id number] Methodi 09:00:00 10:28:42 Consult Lesia 89184.1.[address] 3.430.2.7 Hospit a .3.025781 l .8 2022-07-31 2022-07-31 Orders Laurie 1.2.840.1 [id number] 2100 522059 Methodi 00:00:00 00:00:00 Only Lesia 59172.1.[address] 3.430.2.7 Hospit a .3.859368 l .8 2022-07-31 2022-07-31 Telephone Laurie 1.2.840.1 [id number] Methodi 00:00:00 00:00:[address] 3.430.2.7 Hospit a .3.790801 l .8 2022-07-27 2022-07-27 Travel 1.2.840.1 1.2.095.342 4515 368854 Methodi 00:00:00 00:00:[address] 3.430.2.7 0.2.7.3.698 Ho spita .3.654758 084.8 l .8 2022-07-24 2022-07-24 Telephone Dada, 1.2.840.1 [id number] 738 7745716 Methodi 00:00:00 00:00:00 Maria Teresa 96617.1.[address] 3.430.2.7 Hospit a .3.019094 l .8 2022-07-20 2022-07-21 [facility] 00:00:00 00:00:00 Visit o, [id number] Com [facility] 087893 [facility] 2022-07-20 2022-07-21 In-person [facility] Jacinto 568836-175 [facility] 00:00:00 00:00:00 encounter o, Behavioral 64727 C [facility] 2022-07-15 2022-07-15 Emergency Latanya, 1.2.840.1 [id number] 2099 660488 Methodi 11:20:00 16:19:00 Felix Sullivan 92751.1.[address] 3.430.2.7 Hospit a .3.448941 l .8 2022-07-15 2022-07-15 Travel 1.2.840.1 1.2.906.738 0261 820963 Methodi 00:00:00 00:00:[address] 3.430.2.7 0.2.7.3.698 Ho spita .3.595921 084.8 l .8 2022-07-14 2022-07-14 Emergency Christ, 1.2.840.1 [id number] 2100 296024 Methodi 21:11:00 21:13:[address] Hemant 3.430.2.7 Hospit a .3.869522 l .8 2022-07-11 2022-07-11 Refill Chelsea, 1.2.840.1 [id number] 376207 9027 Methodi 00:00:00 00:00:00 Yassir Dale 16284.1.[address] 3.430.2.7 Hospit a .3.795791 l .8 2022-06-13 2022-06-13 Refill Chelsea, 1.2.840.1 [id number] 137639 6450 Methodi 00:00:00 00:00:00 Evelyne Hunter 26443.1.[address] 3.430.2.7 Hospit a .3.280437 l .8 2022-04-22 2022-04-22 Office Jazmyne Brandon 1.2.840.1 [id number] 21 [id number] Methodi 09:40:00 11:31:57 Visit Larry 84301.1.[address] 3.430.2.7 Hospit a .3.424860 l .8 2022-04-22 2022-04-[address] [facility] Encounter/ Legacy 00:00:00 00:00:00 Visit Tariq [id number] Co mmuni 929648 Health 2022-04-22 2022-04-22 [facility]-202 [facility] 00:00:00 00:00:00 encounter Tariq Behavioral 86720 [facility] 2022-04-22 2022-04-22 Outpatient JAZMYNE BRANDON [facility] 338 [id number] [place] 00:00:00 00:00:[address] 2022-04-20 2022-04-20 Orders Cynthia, 1.2.840.1 [id number] 550974 4624 Methodi 00:00:00 00:00:00 Only Justine 95152.1.[address] 3.430.2.7 [facility] a 3.065619 l .8 2022-03-11 2022-03-11 Office Leticia, [facility] Encounter/ Legacy 00:00:00 00:00:00 Visit Tariq [id number] Co mmuni 341328 ty Health 2022-03-11 2022-03-11 In-person Atri [facility] 3010 47-202 [facility] 00:00:00 00:00:00 encounter Tariq Behavioral 6[address]68 [facility] 2022-02-09 2022-02-09 Office Leticia [facility] Encounter/ Legacy 00:00:00 00:00:00 Visit Tariq [id number] Co mmuni [id number] ty Health 2022-02-09 2022-02-09 In-person AtriTariq [facility] [place] Melvinin to 675862-153 [facility] 00:00:00 00:00:00 encounter Janey Echols Behavioral [address] [facility] ty Health 2022-01-26 2022-01-26 Office Leticia [facility] Encounter/ Legacy 00:00:00 00:00:00 Visit Tariq [id number] Co mmuni [id number] ty Health 2022-01-26 2022-01-26 In-person Atri, [facility] [id number] Legacy 00:00:00 00:00:00 encounter [facility]ariq [facility] ty Health 2021-12-16 2021-12-16 Office Leticia, [facility] Encounter/ Legacy 00:00:00 00:00:00 Visit Tariq [id number] Co m[facility]i [id number] ty Health 2021-12-16 2021-12-16 In-person Atri [facility] [id number] Legacy 00:00:00 00:00:00 encounter Tariq [facility]al [facility] ty Health 2021-10-17 2021-10-17 Office Leticia, [facility] Encounter/ Legacy 00:00:00 00:00:00 Visit Tariq [id number] Co m[facility]i [id number] ty Health 2021-10-17 2021-10-17 In-person Atri, [facility] [id number] Legacy 00:00:00 00:00:00 encounter [facility] [address] [facility] ty Health 2021-08-26 2021-08-26 Office Leticia, [facility] Encounter/ Legacy 00:00:00 00:00:00 Visit Tariq [id number] [facility] m[facility] [id number] ty Health 2021-08-26 2021-08-26 [id number] [facility] 00:00:00 00:00:00 encounter [facility]ariq [facility] 24356 [facility] ty Health 2021-06-26 2021-06-26 Office Leticia [facility] Encounter/ Legacy 00:00:00 00:00:00 Visit Tariq [id number] Co m[facility]i [id number] ty Health 2021-06-26 2021-06-26 [id number] [facility] 00:00:00 00:00:00 encounter Tariq [facility] 10440 [facility] ty Health 2021-05-15 2021-05-15 Office Leticia, [facility] Encounter/ Legacy 00:00:00 00:00:00 Visit Tariq [id number] [facility] m[facility] [id number] ty Health 2021-05-15 2021-05-15 In-person Atri [facility] [id number] Legacy 00:00:00 00:00:00 encounter Tariq [facility] 07314 [facility] ty Health 2021-04-01 2021-04-01 Office Leticia, [facility] Encounter/ Legacy 00:00:00 00:00:00 Visit Tariq [id number] [facility] m[facility]i [id number] ty Health 2021-04-01 2021-04-01 In-person Atri, [facility] [id number] Legacy 00:00:00 00:00:00 encounter Tariq [facility] 04766 [facility] ty Health 2021-02-28 2021-02-28 In-person Tariq Kelly [facility] [place] to [id number] Legacy 00:00:00 00:00:00 encounter [facility] [id number] [facility]on [facility] Health 2021-02-28 2021-02-28 Office Leticia [facility] Encounter/ Legacy 00:00:00 00:00:00 Visit Tariq [id number] Co m[facility] [id number] ty Health 2021-01-31 2021-01-31 In-person Leticia [facility] 3010 [id number] Legacy 00:00:00 00:00:00 encounter Tariq [facility] 87877 [facility] ty Health 2021-01-31 2021-01-31 Office Leticia [facility] Encounter/ Legacy 00:00:00 00:00:00 Visit Tariq [id number] Co mmarmandoi [id number] Health 2021-01-23 2021-01-23 Outpatient [facility] [id number] [place] 00:00:00 00:00:00 [address] 2021-01-23 2021-01-23 Outpatient [facility] [id number] [place] 00:00:00 00:00:00 OLUBAYO [address] 2021-01-21 2021-01-21 Outpatient [facility] [id number] 136 [place] 00:00:00 00:00:[address] 2021-01-03 2021-01-03 Office Leticia [facility] Encounter/ Legacy 00:00:00 00:00:00 Visit Tariq [id number] Co ellei [id number] ty Health 2021-01-03 2021-01-03 In-person MILAN [facility] [id number] Legacy 00:00:00 00:00:00 encounter Tariq [facility] [id number] [facility] ty Health 2020-12-02 2020-12-02 Office Leticia [facility] Encounter/ Legacy 00:00:00 00:00:00 Visit Tariq [id number] Co mmuni [id number] ty Health 2020-12-02 2020-12-02 In-person Leticia [facility] [id number] Legacy 00:00:00 00:00:00 encounter Tariq [facility] 32797 [facility] ty Health 2020-10-29 2020-10-29 Office Leticia [facility] Encounter/ Legacy 00:00:00 00:00:00 Visit Tariq [id number] Co mmuni [id number] Health 2020-10-29 2020-10-29 In-person Atri, [facility] [id number] Legacy 00:00:00 00:00:00 encounter Tariq [facility]al 72855 [facility] 2020-10-15 2020-10-15 Office Tariq Kelly [facility] Enc ounter/ Legacy 00:00:00 00:00:00 Visit Melvi Benjamin 1921 [id number] [facility] Darcy Mejia [id number] 890 [facility] [place] [facility] 2020-10-14 2020-10-14 Office Tariq Kelly [facility] Enc ounter/ Legacy 00:00:00 00:00:00 Visit Reba Membreno [id number] [facility] Rosa Elena Guido 3 [phone] [facility] [place] [facility] 2020-10-08 2020-10-08 Office Tariq Kelly [facility] Enc ounter/ [facility] 00:00:00 00:00:00 Visit Reba Membreno [id number] [facility] Willian Lawson [id number] Health 2020-09-30 2020-09-30 [facility] Legacy 00:00:00 00:00:00 Visit Tariq [id number] Co mmuni [id number] [facility] 2020-09-30 2020-09-30 [facility]- Legacy 00:00:00 00:00:00 encounter Tariq Behavioral 79630 [facility] 2020-09-27 2020-09-27 [facility] / Legacy 00:00:00 00:00:00 Visit Dilcia Maldonado [id number] Gisel ommuni [id number] Health 2020-09-23 2020-09-23 Outpatient CHELSEA [facility] [id number] 033 [place] 00:00:00 00:00:00 EVELYNE [address] [facility] 2020-09-16 2020-09-16 Office Sweta Holder [facility] Encounter/ Legacy 00:00:00 00:00:00 Visit Tariq Kelly [id number] Communi 508034 ty Health 2020-09-16 2020-09-16 Office Leticia [facility] Encounter/ Legacy 00:00:00 00:00:00 Visit Tariq [id number] Co mmuni 491529 ty Health 2020-09-16 2020-09-16 In-person AtriMILAN [facility] 3010 47-202 Legacy 00:00:00 00:00:00 encounter Tariq Behavioral 44988 [facility] Health 2020-09-06 2020-09-06 [facility]/ Legacy 00:00:00 00:00:00 Visit Sweta [id number] Gisel ommuni 155624 ty Health 2020-09-05 2020-09-05 Office Henna Phillip [facility] E ncounter/ Legacy 00:00:00 00:00:00 Visit Sweta Holder [id number] Communi 436572 ty Health 2020-09-03 2020-09-03 [facility] Legacy 00:00:00 00:00:00 Visit Tariq [id number] Co mmuni 751631 ty Health 2020-09-02 2020-09-02 [facility]/ Legacy 00:00:00 00:00:00 Visit Yazmin Rasmussen 54958 17399 Henna Miramontes 400097 Health 2020-09-02 2020-09-02 In-person Tariq Kelly [facility] Jaylen Charlesin to [phone] Legacy 00:00:00 00:00:00 encounter Yazmin Rasmussen Behavioral 18748 Henna Miramontes [facility] ty Health 2020-08-28 2020-08-28 Office Tariq Kelly [facility] Enc ounter/ Legacy 00:00:00 00:00:00 Visit Cindy Eden [id number] Communi 510630 ty Health 2020-07-08 2020-07-08 [facility] Legacy 00:00:00 00:00:00 Visit Ariane Cottrell [id number] Kam Parnell [id number] [facility] 2020-07-08 2020-07-08 In-person Tariq Kelly [facility] Jaylen alberts [phone] Legacy 00:00:00 00:00:00 encounter Ariane Cottrell 008 [id number] [facility] Kam Padilla [facility] 2020-07-03 2020-07-03 Outpatient GC_WHCBAY_C PRIV PRIV [id number] [facility] 00:00:00 00:00:00 rate_E [id number] Medica l 2020-07-03 2020-07-03 Outpatient [facility] [id number] 752 [place] 00:00:00 00:00:00 379 Method i 2020-06-24 2020-06-25 Emergency WINGAlexandreaUN, [facility] 553 [id number] 315 [place] 00:00:00 00:00:00 RICARDO 963 Oh thodi 2020-06-24 2020-06-24 Office Linn Mathias [facility] Enco unter/ Legacy 00:00:00 00:00:00 Visit Leigh Ann Moyer 1911 [id number] [facility] 800892 [facility] 2020-06-24 2020-06-24 Office Tariq Kelly [facility] Enc ounter/ Legacy 00:00:00 00:00:00 Visit Reba Membreno [id number] 5978 [facility] Leigh Ann Moyer 463524 [facility] 2020-06-12 2020-06-12 Outpatient TOJUOLA, [facility] [id number] 8156 [place] 00:00:00 00:00:00 OLUBAYO 731 Method i 2020-06-11 2020-06-11 Outpatient CHELSEA, [facility] [id number] 155 [place] 00:00:00 00:00:00 YASSIR 541 Method i 2020-05-27 2020-05-27 Office Leticia [facility] Encounter/ Legacy 00:00:00 00:00:00 Visit Tariq [id number] Co mmuni 285712 [facility] 2020-05-27 2020-05-27 In-person Leticia [facility] Jaylen Frey 3010 47-202 Legacy 00:00:00 00:00:00 encounter Tariq Behavioral 59556 [facility] Health Health 2020-05-20 2020-05-20 Office Leticia, [facility] Encounter/ Legacy 00:00:00 00:00:00 Visit Tariq [id number] Co mmuni 654239 ty Health 2020-04-03 2020-04-03 Office Leticia, [facility] Encounter/ Legacy 00:00:00 00:00:00 Visit Tariq [id number] Co mmuni 245928 ty Health 2020-04-03 2020-04-03 [facility] 47-202 Legacy 00:00:00 00:00:00 encounter Tariq Behavioral 67950 [facility] 2020-03-29 2020-03-29 Outpatient [facility] [id number] 6709 [place] 00:00:00 00:00:00 CLAUDIAYO [address] 2020-03-28 2020-03-28 Outpatient [facility] [id number] [place] 00:00:00 00:00:00 CLAUDIAYO 829 Method i 2020-03-14 2020-03-15 Emergency VANDER [facility] [id number] 14 [place] 00:00:00 00:00:00 MANGO, 631 Method i ANDREW 2020-03-14 2020-03-14 Outpatient [facility] [id number] 451 [place] 00:00:00 00:00:00 EVELYNE [address] 2020-03-12 2020-03-12 Outpatient [facility] [id number] [place] 06:55:19 06:55:19 Health 2020-02-28 2020-02-28 Outpatient [facility] [id number] [place] 00:00:00 00:00:00 Health 2020-02-22 2020-02-22 Office Leticia, [facility] Encounter/ Legacy 00:00:00 00:00:00 Visit Tariq [id number] Co mmuni [id number] Health 2020-02-22 2020-02-22 In-person Leticia, [facility] [phone] Legacy 00:00:00 00:00:00 encounter Tariq Behavioral 23457 [facility] Health Health 2020-01-31 2020-01-31 Outpatient [facility] [id number] [place] [address] 13:33:02 13:33:02 Health 2020-01-25 2020-01-25 [facility] Legacy 00:00:00 00:00:00 Visit Kirsten [id number] C ommuni 385617 [facility] 2020-01-19 2020-01-19 [facility]/ Legacy 00:00:00 00:00:00 Visit Cindy Eden [id number] [facility] 265813 [facility] 2020-01-19 2020-01-19 In-person Tariq Kelly [facility] Jacin to [phone] Legacy 00:00:00 00:00:00 encounter Cindy Ferrer Behavioral 002 21 [facility] 2020-01-01 2020-01-01 Outpatient [facility] [id number] [place] 00:00:00 00:00:00 [facility] 2019-12-25 2019-12-25 Office [facility]/ Legacy 00:00:00 00:00:00 Visit Kirsten [id number] C ommuni 634341 [facility] 2019-12-19 2019-12-19 Emergency [facility] [id number] [place] [address] 00:00:00 00:00:00 MIC Gutierrez [facility] 2019-11-30 2019-11-30 Outpatient [facility] [id number] [place] 15:29:43 15:29:43 Health 2019-11-07 2019-11-07 Office ANNI Kelly Encounter/ Legacy 00:00:00 00:00:00 Visit Tariq [id number] Co mmuni [id number] [facility] 2019-11-03 2019-11-03 Outpatient [facility] [id number] [place] 11:18:10 11:18:10 Health 2019-11-03 2019-11-03 Outpatient [facility] [id number] [place] 09:59:13 09:59:13 Health 2019-11-03 2019-11-03 Outpatient [facility] [id number] [place] 00:00:00 00:00:00 Health 2019-10-16 2019-10-16 Outpatient [facility] [id number] [place] 00:00:00 00:00:00 Health 2019-10-09 2019-10-09 Emergency [facility] [id number] 16 [place] 00:00:00 00:00:00 FELIX Viviana [facility] 2019-10-05 2019-10-05 Office Tariq Kelly [facility] Enc ounter/ Legacy 00:00:00 00:00:00 Visit Cindy Eden [id number] [facility] 118008 [facility] 2019-10-05 2019-10-05 In-person Tariq Kelly [facility] Roque to [phone] Legacy 00:00:00 00:00:00 encounter Cindy Ferrer Behavioral 911 07 [facility] 2019-10-02 2019-10-02 [facility]/ Legacy 00:00:00 00:00:00 Visit Jena Posey [id number] 81898 [facility] [id number] [facility] 2019-09-29 2019-09-29 Office Leticia [facility] Encounter/ Legacy 00:00:00 00:00:00 Visit Tariq [id number] Co shaniquauni 492246 [facility] 2019-09-28 2019-09-28 Office ANNI Galeano Encounte r/ Legacy 00:00:00 00:00:00 Visit Yana Maher [id number] [facility] yanely 383606 [facility] 2019-09-22 2019-09-22 [facility]/ Legacy 00:00:00 00:00:00 Visit Yana Galeano [id number] 69011 [facility] 542196 [facility] 2019-09-06 2019-09-06 Office Leticia [facility] Encounter/ Legacy 00:00:00 00:00:00 Visit Tariq [id number] Co mmuni 911288 [facility] 2019-09-01 2019-09-01 Office Leticia [facility] Encounter/ Legacy 00:00:00 00:00:00 Visit Tariq [id number] Co mmuni 286540 [facility] 2019-08-21 2019-08-21 Outpatient [facility] [id number] [place] 15:25:46 15:25:46 Health 2019-08-21 2019-08-21 Outpatient [facility] [id number] [place] 15:06:01 15:06:01 Health 2019-08-21 2019-08-21 Outpatient [facility] [id number] [place] [address] 14:19:26 14:19:26 Health 2019-08-04 2019-08-04 Outpatient [facility] [id number] [place] 00:00:00 00:00:00 Health 2019-06-27 2019-06-27 Outpatient [facility] [id number] [place] 00:00:00 00:00:00 Health 2019-06-27 2019-06-27 Outpatient [facility] [id number] [place] 00:00:00 00:00:00 Health 2019-06-20 2019-06-20 Outpatient [facility] [id number] [place] 10:20:58 10:20:58 Health 2019-06-20 2019-06-20 Outpatient [facility] [id number] [place] 10:20:12 10:20:12 Health 2019-06-20 2019-06-20 Outpatient [facility] [id number] [place] 09:19:53 09:19:53 Health 2019-06-20 2019-06-20 Outpatient [facility] [id number] [place] 00:00:00 00:00:00 [facility] 2019-06-08 2019-06-08 Office Tariq Kelly [facility] Enc ounter/ Legacy 00:00:00 00:00:00 Visit Reba Membreno [id number] [facility] [id number] [facility] 2019-06-08 2019-06-08 [facility]/ Legacy 00:00:00 00:00:00 Visit Kam Padilla8 326101 [facility] 297236 [facility] 2019-06-08 2019-06-08 In-person [facility]q [facility] [id number] Legacy 00:00:00 00:00:00 encounter Kam Padilla [facility] 93874 [facility] 2019-06-07 2019-06-07 Outpatient [facility] [id number] [place] 00:00:00 00:00:00 [facility] 2019-05-19 2019-05-19 Office Tariq Kelly [facility] Enc ounter/ Legacy 00:00:00 00:00:00 Visit Reba Membreno [id number] [facility] 477794 [facility] 2019-05-18 2019-05-18 Outpatient [facility] [id number] [place] 00:00:00 00:00:00 [facility] 2019-05-16 2019-05-16 Outpatient [facility] [id number] [place] 00:00:00 00:00:00 Health 2019-05-15 2019-05-15 Outpatient [facility] [id number] [place] 06:52:55 06:52:55 Health 2019-05-15 2019-05-15 Outpatient [facility] [id number] [place] 00:00:00 00:00:00 [facility] 2019-05-11 2019-05-11 Outpatient [facility] [id number] [place] 10:41:00 10:41:00 Health 2019-05-11 2019-05-11 Outpatient [facility] [id number] [place] 00:00:00 00:00:00 [facility] 2019-05-08 2019-05-08 Outpatient [facility] [id number] [place] 00:00:00 00:00:00 [facility] 2019-05-04 2019-05-04 Outpatient [facility] [id number] [place] 11:04:24 11:04:24 [facility] 2019-05-04 2019-05-04 Outpatient [facility] [id number] [place] 00:00:00 00:00:00 [facility] 2019-05-01 2019-05-01 Outpatient [facility] [id number] [place] 14:42:33 14:42:33 Health 2019 2019 Outpatient [facility] [id number] [place] 00:00:00 00:00:00 [facility] 2019-04-13 2019-04-13 Outpatient [facility] [id number] [place] 00:00:00 00:00:00 [facility] 2019-04-06 2019-04-07 In-person Tariq [facility] [id number] Legacy 00:00:00 00:00:00 encounter Naila Roberts Behavioral 90 509 [facility]i [facility] 2019-04-06 2019-04-06 Office Tariq Kelly [facility] Enc ounter/ Legacy 00:00:00 00:00:00 Visit Naila Roberts [id number] Communi 171866 [facility] 2019-04-04 2019-04-04 Outpatient [facility] [id number] [place] 14:42:07 14:42:07 Health 2019-03-28 2019-03-28 Outpatient [facility] [id number] [place] 14:52:02 14:52:02 Health 2019-03-23 2019-03-23 Outpatient [facility] [id number] [place] 09:46:54 09:46:54 [facility] 2019-03-21 2019-03-21 Outpatient [facility] [id number] [place] 13:27:30 13:27:30 [facility] 2019-03-15 2019-03-15 Outpatient [facility] [id number] [place] 17:01:39 17:01:39 [facility] 2019-03-10 2019-03-10 Outpatient [facility] [id number] [place] 00:00:00 00:00:00 [facility] 2019-03-07 2019-03-07 Outpatient [facility] [id number] [place] 13:33:19 13:33:19 [facility] 2019-03-06 2019-03-06 Outpatient [facility] [id number] [place] 00:00:00 00:00:00 [facility] 2019-03-06 2019-03-06 Outpatient [facility] [id number] [place] 00:00:00 00:00:00 [facility] 2019-03-04 2019-03-04 Emergency [facility] [id number] [place] 01:30:44 01:30:44 [facility] 2019-03-04 2019-03-04 Emergency [facility] [id number] [place] 00:19:08 00:19:08 [facility] 2019-03-02 2019-03-02 Outpatient [facility] [id number] [place] 00:00:00 00:00:00 [facility] 2019-03-01 2019-03-01 Outpatient [facility] [id number] [place] 00:00:00 00:00:00 [facility] 2019-03-01 2019-03-01 Outpatient [facility] [id number] [place] 00:00:00 00:00:00 [facility] 2019-02-28 2019-02-28 Office Tariq Kelly [facility] Enc ounter/ Legacy 00:00:00 00:00:00 Visit Cindy Eden [id number] Communi [id number] ty [facility] 2019-02-27 2019-02-27 Outpatient [facility] [id number] [place] 00:00:00 00:00:00 [facility] 2019-02-24 2019-02-24 Outpatient [facility] [id number] [place] 15:36:58 15:36:58 [facility] 2019-02-21 2019-02-21 Outpatient [facility] [id number] [place] 11:04:11 11:04:11 [facility] 2019-02-21 2019-02-21 Outpatient [facility] [id number] [place] 00:00:00 00:00:00 [facility] 2019-02-13 2019-02-13 Outpatient [facility] [id number] [place] 00:00:00 00:00:00 Health 2019-02-09 2019-02-09 [facility] Legacy 00:00:00 00:00:00 Visit Kam Padilla [id number] [facility] [id number] [facility] 2019-02-09 2019-02-09 [facility] Melvin[facility] [id number] Legacy 00:00:00 00:00:00 encounter Kam Padilla Behavioral 23363 [facility] 2019-02-08 2019-02-08 Outpatient [facility] [id number] [place] 13:54:31 13:54:31 Health 2019-02-07 2019-02-07 Outpatient [facility] [id number] [place] 15:17:18 15:17:18 Health 2019-02-07 2019-02-07 Outpatient [facility] [id number] [place] 14:41:40 14:41:40 Health 2019-01-30 2019-01-30 Outpatient [facility] [id number] [place] 10:26:03 10:26:03 Health 2019-01-19 2019-01-19 Office [facility]/ Legacy 00:00:00 00:00:00 Visit Reba Membreno [id number] [place] Kirsten Lovett 179613 [facility] 2019-01-16 2019-01-16 Outpatient [facility] [id number] [place] 00:00:00 00:00:00 Health 2018-12-20 2018-12-20 Outpatient [facility] [id number] [place] 00:00:00 00:00:00 [facility] 2018-12-09 2018-12-12 [facility] Melvinin to [id number] Legacy 00:00:00 00:00:00 encounter Reba Membreno Behavioral 9 [id number] [facility] 2018-12-09 2018-12-09 Office [facility]/ Legacy 00:00:00 00:00:00 Visit Reba Membreno [id number] [facility] [id number] [facility] 2018-12-05 2018-12-05 Outpatient [facility] [id number] [place] 00:00:00 00:00:00 Health 2018-11-04 2018-11-04 Outpatient [facility] [id number] [place] 00:00:00 00:00:00 Health 2018-10-26 2018-10-26 Outpatient [facility] [id number] [place] 09:08:48 09:08:48 Health 2018-10-13 2018-10-13 Emergency [facility] MED [id number] [place] 20:29:33 20:29:33 Health 2018-10-13 2018-10-13 Outpatient [facility] [id number] [place] 16:17:09 16:17:09 Health 2018-10-13 2018-10-13 Outpatient [facility] [id number] [place] 15:32:26 15:32:26 Health 2018-10-13 2018-10-13 Outpatient [facility] [id number] [place] 00:00:00 00:00:00 [facility] 2018-10-03 2018-10-03 Office Status, Fax [facility] Encoun ter/ Legacy 00:00:00 00:00:00 Visit [id number] Com yanely [id number] [facility] 2018-09-30 2018-09-30 Outpatient [facility] [id number] [place] 00:00:00 00:00:00 [facility] 2018-09-29 2018-09-29 Outpatient [facility] [id number] [place] 00:00:00 00:00:00 [facility] 2018-09-29 2018-09-29 Outpatient [facility] [id number] [place] 00:00:00 00:00:00 [facility] 2018-09-27 2018-09-27 Outpatient [facility] [id number] [place] 00:00:00 00:00:00 [facility] 2018-09-23 2018-09-23 Outpatient [facility] [id number] [place] 00:00:00 00:00:00 [facility] 2018-09-20 2018-09-20 Outpatient [facility] [id number] [place] 00:00:00 00:00:00 [facility] 2018-09-16 2018-09-16 Office Tariq Kelly MILAN Reed ounter/ Legacy 00:00:00 00:00:00 Visit Dannielle Torrez [id number] Mary Loomis [id number] [facility] 2018-09-16 2018-09-16 In-person Tariq Kelly [facility] Jaylen Nevarez to [id number] Legacy 00:00:00 00:00:00 encounter Dannielle Torrez [facility] 8101 [id number] [facility] 2018-09-15 2018-09-15 Office Tariq Kelly [facility] Enc ounter/ Legacy 00:00:00 00:00:00 Visit Kirsten Lovett [id number] [facility] [id number] [facility] 2018-09-05 2018-09-05 Outpatient [facility] [id number] [place] 00:00:00 00:00:00 Health 2018-09-01 2018-09-01 Emergency [facility] MED [id number] [place] 20:39:23 20:39:23 Health 2018-08-30 2018-08-30 Outpatient [facility] [id number] [place] 13:38:53 13:38:53 Health 2018-08-30 2018-08-30 Office Tariq Kelly [facility] Enc ounter/ Legacy 00:00:00 00:00:00 Visit Andrew Zavaleta [id number] [facility] [id number] [facility] 2018-08-29 2018-08-29 Outpatient [facility] [id number] [place] 12:07:20 12:07:20 Health 2018-08-29 2018-08-29 Outpatient [facility] [id number] [place] 10:48:59 10:48:59 Health 2018-08-26 2018-08-26 Emergency [facility] [id number] [place] 01:23:49 01:23:49 Health 2018-08-25 2018-08-25 Emergency [facility] [id number] [place] 23:04:57 23:04:57 Health 2018-08-25 2018-08-25 Emergency [facility] MED [id number] [place] 19:23:00 19:23:00 Health 2018-08-24 2018-08-24 Outpatient [facility] [id number] [place] 11:12:07 11:12:07 Health 2018-08-24 2018-08-24 Outpatient [facility] [id number] [place] 00:00:00 00:00:00 Health 2018-08-23 2018-08-23 Outpatient [facility] [id number] [place] 12:24:47 12:24:47 Health 2018-08-23 2018-08-23 Outpatient [facility] [id number] [place] 12:00:24 12:00:24 Health 2018-08-19 2018-08-19 [facility] Legacy 00:00:00 00:00:00 Visit Reba Membreno [id number] [facility] Rosa Elena Guido 1 85251 [facility] 2018-08-17 2018-08-17 Outpatient [facility] [id number] [place] 00:00:00 00:00:00 Health 2018-08-15 2018-08-15 Outpatient [facility] [id number] [place] 07:0020 07:00:20 Health 2018-08-05 2018-08-05 Outpatient [facility] [id number] [place] 00:00:00 00:00:00 [facility] 2018-08-03 2018-08-[address] [facility] Encounter/ Legacy 00:00:00 00:00:00 Visit Alvin Deutsch [id number] Com yanely [id number] [facility] 2018-08-03 2018-08-[address] [facility] Enc ounter/ Legacy 00:00:00 00:00:00 Visit Albert Lawson [id number] [facility] 499205 [facility] 2018-08-03 2018-08-03 In-person Alvin Pacheco [facility] Roque to [id number] Legacy 00:00:00 00:00:00 encounter Albert Lawson [employer] 809 05 [facility] 2018-08-02 2018-08-[address] [facility] Enc ounter/ Legacy 00:00:00 00:00:00 Visit Reba Membreno [id number] [facility] Rosa Elena Guido 3 44917 [facility] 2018-07-28 2018-07-28 Outpatient [facility] [id number] [place] 00:00:00 00:00:00 [facility] 2018-07-28 2018-07-28 [facility] n[facility]/ Legacy 00:00:00 00:00:00 Visit Anusha García [id number] [facility] 966365 [facility] 2018-07-21 2018-07-21 Outpatient [facility] [id number] [place] 00:00:00 00:00:00 Health 2018-07-12 2018-07-12 Outpatient [facility] [id number] [place] 00:00:00 00:00:00 Health 2018-06-29 2018-06-[address] [facility] Encounte r/ Legacy 00:00:00 00:00:00 Visit Marquez [id number] Com yanely [id number] ty Health 2018-06-29 2018-06-[address] [facility] Encounte r/ Legacy 00:00:00 00:00:00 Visit Marquez [id number] Com yanely [id number] Health 2018-06-29 2018-06-29 Office Tariq Kelly [facility] Enc ounter/ Legacy 00:00:00 00:00:00 Visit Cindy Eden [id number] Communi 011200 [facility] 2018-06-29 2018-06-29 In-person Tariq Kelly [facility] Roque to [id number] Legacy 00:00:00 00:00:00 encounter Cindy Ferrer [facility]al 808 01 [facility] 2018-06-14 2018-06-14 Outpatient [facility] [id number] [place] 00:00:00 00:00:00 Health 2018-06-06 2018-06-06 Outpatient [facility] [id number] [place] 14:56:51 14:56:51 Health 2018-06-06 2018-06-06 Outpatient [facility] [id number] [place] 13:46:50 13:46:50 Health 2018-05-30 2018-05-30 Outpatient [facility] [id number] [place] 00:00:00 00:00:00 [facility] 2018-05-24 2018-05-24 Outpatient [facility] [id number] [place] 00:00:00 00:00:00 Health 2018-05-19 2018-05-19 Outpatient [facility] [id number] [place] 00:00:00 00:00:00 [facility] 2018-05-18 2018-05-[address] [facility] Encounte r/ Legacy 00:00:00 00:00:00 Visit Rosa Elena [id number] Com yanely [id number] [facility] 2018-05-18 2018-05-[address] [facility] Encounte r/ Legacy 00:00:00 00:00:00 Visit Rosa Elena [id number] Com yanely 513555 [facility] 2018-05-17 2018-05-17 Outpatient [facility] [id number] [place] 00:00:00 00:00:00 Health 2018-05-10 2018-05-10 Outpatient [facility] [facility] [id number] [place] 00:00:00 00:00:00 Health 2018-05-05 2018-05-[address] [facility] Encounter/ Legacy 00:00:00 00:00:00 Visit Tariq [id number] Co mmuni 099593 ty Health 2018-04-15 2018-04-[address] [facility] Encounte r/ Legacy 00:00:00 00:00:00 Visit Rosa Elena [id number] Com yanely 812660 ty Health 2018-04-15 2018-04-15 Office ANNI Hansen Encounte r/ Legacy 00:00:00 00:00:00 Visit Rosa Elena [id number] Com yanely 592394 Health 2018-04-14 2018-04-14 Office ANNI Eden Encounter/ Legacy 00:00:00 00:00:00 Visit Cindy [id number] Com yanely 687305 ty Health 2018-04-14 2018-04-14 Office ANNI Eden Encounter/ Legacy 00:00:00 00:00:00 Visit Cindy [id number] Com yanely 739202 ty Health 2018-04-14 2018-04-14 [facility] Legacy 00:00:00 00:00:00 Visit Dannielle Torrez [id number] 3 Communi 928210 Health 2018-04-14 2018-04-14 [facility] [id number] Legacy 00:00:00 00:00:00 encounter Dannielle Torrez Behavioral 8051 7 Communi Health ty Health 2018-04-12 2018-04-12 Outpatient [facility] [id number] [place] 12:47:37 12:47:37 Health 2018-04-12 2018-04-12 Office ANNI Villasenor Encounter/ Legacy 00:00:00 00:00:00 Visit Tati [id number] Com yanely 445247 ty Health 2018-04-04 2018-04-04 Outpatient [facility] [id number] [place] 00:00:00 00:00:00 Health 2018-03-24 2018-03-24 Outpatient [facility] [id number] [place] 09:36:57 09:36:57 Health 2018-03-15 2018-03-15 Outpatient [facility] [id number] [place] 13:20:00 13:20:00 Health 2018-03-08 2018-03-08 Office ANNI Hansen Encounte r/ Legacy 00:00:00 00:00:00 Visit Rosa Elena [id number] Com yanely [id number] Health 2018-03-08 2018-03-08 Office MILAN Hansen MILAN Encounte r/ Legacy 00:00:00 00:00:00 Visit Rosa Elena [id number] Com yanely [id number] [facility] 2018-02-14 2018-02-14 Outpatient [facility] [id number] [place] 00:00:00 00:00:00 Health 2018-02-03 2018-02-03 Office ANNI Eden Encounter/ Legacy 00:00:00 00:00:00 Visit Cindy [id number] Com yanely [id number] [facility] 2018-02-01 2018-02-01 Outpatient [facility] [id number] [place] 11:35:51 11:35:51 Health 2018-01-31 2018-01-31 Office ANNI Eden Encounter/ Legacy 00:00:00 00:00:00 Visit Cindy [id number] Com yanely [id number] [facility] 2018-01-27 2018-01-27 Outpatient [facility] [id number] [place] 15:32:06 15:32:06 Health 2018-01-26 2018-01-26 Outpatient [facility] [id number] [place] 07:10:51 07:10:51 Health 2018-01-18 2018-01-18 Outpatient [facility] [id number] [place] 11:05:50 11:05:50 Health 2018-01-17 2018-01-17 Outpatient [facility] [id number] [place] 15:04:55 15:04:55 Health 2018-01-12 2018-01-12 Office ANNI Eden Encounter/ Legacy 00:00:00 00:00:00 Visit Cindy [id number] Com yanely [id number] Health 2018-01-12 2018-01-12 Office ANNI Kelly Encounter/ Legacy 00:00:00 00:00:00 Visit Tariq [id number] Co mmuni 974569 Health 2018-01-11 2018-01-11 [facility] Legacy 00:00:00 00:00:00 Visit Cindy [id number] Com yanely 523555 ty Health 2018-01-07 2018-01-07 Office Leticia [facility] Encounter/ Legacy 00:00:00 00:00:00 Visit Tariq [id number] Co mmuni 818904 Health 2018-01-06 2018-01-07 [facility] Melvin[facility] [id number] Legacy 00:00:00 00:00:00 encounter Klarissa Lawson [facility] 98423 [facility] 2018-01-06 2018-01-06 [facility] Legacy 00:00:00 00:00:00 Visit Klarissa Lawson [id number] Cindy Schwartz [id number] [facility] 2017-12-22 2017-12-22 Outpatient [facility] [id number] [place] 13:51:25 13:51:25 Health 2017-12-22 2017-12-22 Outpatient [facility] [id number] [place] 13:06:37 13:06:37 Health 2017-12-17 2017-12-17 Office Tyrone [facility] Encounte r/ Legacy 00:00:00 00:00:00 Visit Rosa Elena [id number] Com yaenly [id number] [facility] 2017-12-17 2017-12-17 Office Tyrone [facility] Encounte r/ Legacy 00:00:00 00:00:00 Visit Rosa Elena [id number] Com yanely [id number] Health 2017-12-15 2017-12-15 Outpatient [facility] [id number] [place] 00:00:00 00:00:00 Health 2017-12-09 2017-12-09 Office Yaritza Bailey [facility] Encount er/ Legacy 00:00:00 00:00:00 Visit [id number] Com yanely [id number] Health 2017-12-01 2017-12-01 Outpatient [facility] [id number] [place] 13:35:25 13:35:25 Health 2017-12-01 2017-12-01 Outpatient [facility] [id number] [place] 11:04:56 11:04:56 Health 2017-12-01 2017-12-01 Outpatient [facility] [id number] [place] 10:10:52 10:10:52 Health 2017-12-01 2017-12-01 Outpatient [facility] [id number] [place] 00:00:00 00:00:00 Health 2017-11-30 2017-11-30 Outpatient [facility] [id number] [place] 00:00:00 00:00:00 Health 2017-11-30 2017-11-30 Outpatient [facility] [id number] [place] 00:00:00 00:00:00 Health 2017-11-23 2017-11-23 Office ANNI Mackenzie Encounter/ Legacy 00:00:00 00:00:00 Visit Leyda [id number] Com yanely [id number] Health 2017-11-16 2017-11-22 [facility] [id number] Legacy 00:00:00 00:00:00 encounter Laura Cerna Family 7121 9 Communi Practice ty Health 2017-11-16 2017-11-16 Office ANNI Eden Encounter/ Legacy 00:00:00 00:00:00 Visit Alexandra [id number] Com yanely 602081 ty Health 2017-11-16 2017-11-16 Office ANNI Robledo Encounter/ Legacy 00:00:00 00:00:00 Visit Mayda [id number] Com yanely 354280 ty Health 2017-11-16 2017-11-16 Office Mayda Robledo Enco unter/ Legacy 00:00:00 00:00:00 Visit Hansel Cernaiana [id number] Communi 481606 ty Health 2017-11-10 2017-11-10 Office Dino YATES Encounter / Legacy 00:00:00 00:00:00 Visit MedAdherenc [id number] Alina Loredo 916265 ty Health 2017-11-09 2017-11-09 Office Dino YATES Encounter / Legacy 00:00:00 00:00:00 Visit MedAdherenc [id number] Alina Loredo 586026 ty Health 2017-10-25 2017-10-25 Office ANNI Eden LC Encounter/ Legacy 00:00:00 00:00:00 Visit Cindy [id number] Com yanely 356528 ty Health 2017-10-11 2017-10-11 Office LeticiaANNI [facility] Encounter/ Legacy 00:00:00 00:00:00 Visit Tariq [id number] Co mmuni 646645 ty Health 2017-10-05 2017-10-05 Office Atri, [facility] Encounter/ Legacy 00:00:00 00:00:00 Visit Tariq [id number] Co mmuni 718172 ty Health 2017-09-22 2017-09-22 Outpatient [facility] [id number] [place] 00:00:00 00:00:00 Health 2017-09-21 2017-09-21 Office Tati Villasenor [facility] En counter/ Legacy 00:00:00 00:00:00 Visit Leyda Mackenzie [id number] Rosi Schwartz [id number] [facility] Health 2017-09-21 2017-09-21 Office ANNI Eden [facility] Encounter/ Legacy 00:00:00 00:00:00 Visit Cindy [id number] Com yanely 084971 ty Health 2017-09-15 2017-09-15 Office ANNI Eden [facility] Encounter/ Legacy 00:00:00 00:00:00 Visit Cindy [id number] Com yanely 976998 ty Health 2017-09-14 2017-09-14 Office ANNI Eden [facility] Encounter/ Legacy 00:00:00 00:00:00 Visit Cindy [id number] Com yanely 220118 ty Health 2017-09-11 2017-09-11 Office ANNI Villasenor [facility] Encounter/ Legacy 00:00:00 00:00:00 Visit Tati [id number] Com yanely 260626 ty Health 2017-09-10 2017-09-10 Office ANNI Kelly [facility] Encounter/ Legacy 00:00:00 00:00:00 Visit Tariq [id number] Co mmuni 500661 ty Health 2017-09-09 2017-09-09 Office ANNI Kelly [facility] Encounter/ Legacy 00:00:00 00:00:00 Visit Tariq [id number] Co mmuni 832023 Health 2017-09-09 2017-09-09 Office MILAN Kelly [facility] Encounter/ Legacy 00:00:00 00:00:00 Visit Tariq [id number] Co mmuni 331727 Health 2017-09-09 2017-09-09 Office Tariq Kelly [facility] Enc ounter/ Legacy 00:00:00 00:00:00 Visit Reba Membreno [id number] Communi 112488 Health 2017-09-09 2017-09-09 Office ANNI Pacheco LC Encounter/ Legacy 00:00:00 00:00:00 Visit Alvin Deutsch [id number] Com yanely [id number] [facility] 2017-09-09 2017-09-09 In-person Tariq Kelly [facility] [place] to [id number] Legacy 00:00:00 00:00:00 encounter Reba Membreno Behavioral 7 1012 [facility] 2017-09-07 2017-09-07 Office ANNI Spann Encounter/ Legacy 00:00:00 00:00:00 Visit Heydi [id number] Com yanely [id number] [facility] 2017-09-07 2017-09-07 Office Alvin Pacheco MILAN Enc ounter/ Legacy 00:00:00 00:00:00 Visit Luis Prabhakar [id number] Commun Heydi pSann 575553 ty Michelet [facility] 2017-08-31 2017-09-07 In-person Alvin Pacheco [facility] [place] to Encounter/ Legacy 00:00:00 00:00:00 encounter [facility] [id number] [facility] [id number] Ke[facility] Tati Villasenor Tamika 2017-09-06 2017-09-06 Office ANNI Pacheco LC Encounter/ Legacy 00:00:00 00:00:00 Visit Alvin Deutsch [id number] Com yanely [id number] [facility] 2017-09-03 2017-09-03 Office ANNI Pacheco LC Encounter/ Legacy 00:00:00 00:00:00 Visit Alvin La Nena [id number] Com yanely 384340 ty Health 2017-09-03 2017-09-03 [facility] Legacy 00:00:00 00:00:00 Visit Alvin La Nena [id number] Com yanely 642384 ty Health 2017-09-03 2017-09-03 [facility]/ Legacy 00:00:00 00:00:00 Visit Alvin La Nena [id number] Com yanely 710007 ty Health 2017-09-03 2017-09-03 Office Alvin Pacheco [facility] Enc ounter/ Legacy 00:00:00 00:00:00 [facility] [id number] 2017-09-03 2017-09-03 In-person JuniorAlvin [facility] [place] to [id number] Legacy 00:00:00 00:00:00 encounter Sandhya Muro [employer] 31250 Communi ty Health 2017-09-01 2017-09-01 Office Status, Fax [facility] Encoun ter/ Legacy 00:00:00 00:00:00 Visit [id number] Com yanely 223070 ty Health 2017-09-01 2017-09-01 Office Status, Fax [facility] Encoun ter/ Legacy 00:00:00 00:00:00 Visit [id number] Com yanely 340583 ty Health 2017-09-01 2017-09-01 Office Status, Fax [facility] Encoun ter/ Legacy 00:00:00 00:00:00 Visit [id number] Com yanely 503393 ty Health 2017-09-01 2017-09-01 Office Status, Fax [facility] Encoun ter/ Legacy 00:00:00 00:00:00 Visit [id number] Com yanely 630190 ty Health 2017-09-01 2017-09-01 Office Status, Fax [facility] Encoun ter/ Legacy 00:00:00 00:00:00 Visit [id number] Com yanely 674861 ty Health 2017-09-01 2017-09-01 Office Status, Fax [facility] Encoun ter/ Legacy 00:00:00 00:00:00 Visit [id number] Com yanely 577662 ty Health 2017-08-31 2017-08-[address] [facility] Encounte r/ Legacy 00:00:00 00:00:00 Visit Marquez [id number] Com yanely 440027 ty Health 2017-08-31 2017-08-31 Office JasmineANNI Encounte r/ Legacy 00:00:00 00:00:00 Visit Marquez [id number] Com yanely 698378 ty Health 2017-08-31 2017-08-[address] [facility] Encounter/ Legacy 00:00:00 00:00:00 Visit Tait [id number] Com yanely 931761 ty Health 2017-08-27 2017-08-27 Outpatient [facility] [id number] [place] 00:00:00 00:00:00 Health 2017-08-27 2017-08-[address] [facility] Encounter/ Legacy 00:00:00 00:00:00 Visit Tati [id number] Com yanely 970411 ty Health 2017-08-25 2017-08-25 Office Y[address]za Bailey Hunter [facility] Encount er/ Legacy 00:00:00 00:00:00 Visit [id number] Com yanely 591825 ty Health 2017-08-17 2017-08-[address] [facility] Encounter/ Legacy 00:00:00 00:00:00 Visit Cindy [id number] Com yanely 499258 ty Health 2017-08-12 2017-08-12 Office ANNI Eden Hunter Encounter/ Legacy 00:00:00 00:00:00 Visit Cindy [id number] Com yanely 778360 ty Health 2017-08-10 2017-08-[address] [facility] Encount er/ Legacy 00:00:00 00:00:00 Visit [id number] Com yanely 806459 ty Health 2017-07-30 2017-07-[address] [facility] Encounter/ Legacy 00:00:00 00:00:00 Visit Alvin Deutsch [id number] Com yanely 726468 ty Health 2017-07-16 2017-07-16 Office MILAN EdenH [facility] Encounter/ Legacy 00:00:00 00:00:00 Visit Cindy [id number] Com yanely 198965 ty Health 2017-07-15 2017-07-15 Office Leticia, MILANH [facility] Encounter/ Legacy 00:00:00 00:00:00 Visit Tariq [id number] Co mmuni 622379 ty Health 2017-07-15 2017-07-15 Office Hamilton, ANNI [facility] Encounter/ Legacy 00:00:00 00:00:00 Visit Tati [id number] Com yanely 371086 ty Health 2017-07-15 2017-07-15 Office ANNI Villasenor [facility] Encounter/ Legacy 00:00:00 00:00:00 Visit Tati [id number] Com yanely 788940 ty Health 2017-07-15 2017-07-15 Office ANNI Villasenor [facility] Encounter/ Legacy 00:00:00 00:00:00 Visit Tati [id number] Com yanely 588897 ty Health 2017-07-15 2017-07-15 Office Tati Villasenor [facility] En counter/ Legacy 00:00:00 00:00:00 Visit Jose Shankar [id number] 2317 Communi Tariq Kelly 927877 t Health 2017-07-15 2017-07-15 Office ANNI aGrza [facility] Encounter/ Legacy 00:00:00 00:00:00 Visit Angelita [id number] Com yanely 071193 ty Health 2017-07-15 2017-07-15 Office ANNI Garza [facility] Encounter/ Legacy 00:00:00 00:00:00 Visit Angelita [id number] Com yanely 983045 ty Health 2017-07-15 2017-07-15 Office Tariq Kelly Enc ounter/ Legacy 00:00:00 00:00:00 Visit Reba Membreno [id number] Commun 558698 ty Health 2017-07-15 2017-07-15 In-person Tariq Kelly [place] to [id number] Legacy 00:00:00 00:00:00 encounter Reba Membreno Behavioral 7 0817 [facility] Health 2017-07-12 2017-07-12 Office Leyda Mackenzie MILAN Enc ounter/ Legacy 00:00:00 00:00:00 Visit Olivia Hadley [id number] Commun 294230 ty Health 2017-07-11 2017-07-11 Office ANNI Villasenor Encounter/ Legacy 00:00:00 00:00:00 Visit Tati [id number] Com yanely 733916 ty Health 2017-07-11 2017-07-11 Office ANNI Villasenor Encounter/ Legacy 00:00:00 00:00:00 Visit Tati [id number] Com yanely 129789 ty Health 2017-06-25 2017-06-25 Office ANNI Eden Encounter/ Legacy 00:00:00 00:00:00 Visit Cindy [id number] Com yanely 469176 ty Health 2017-06-18 2017-06-18 Office ANNI Eden Encounter/ Legacy 00:00:00 00:00:00 Visit Cindy [id number] Com yanely 546771 ty Health 2017-06-11 2017-06-11 Office ANNI Eden Encounter/ Legacy 00:00:00 00:00:00 Visit Cindy [id number] Com yanely 427696 ty Health 2017-05-20 2017-05-20 Outpatient [facility] [id number] [place] 00:00:00 00:00:00 Health 2017-05-13 2017-05-13 Outpatient [facility] [id number] [place] 00:00:00 00:00:00 Health 2017-05-13 2017-05-13 Office ANNI Eden Encounter/ Legacy 00:00:00 00:00:00 Visit Cindy [id number] Com yanely 970935 ty Health 2017-05-05 2017-05-05 Office ANNI Torrez Encounter/ Legacy 00:00:00 00:00:00 Visit Dannielle [id number] Com yanely 245641 ty Health 2017-05-05 2017-05-05 Office ANNI Eden Encounter/ Legacy 00:00:00 00:00:00 Visit Tamika [id number] Co mmuni 585181 ty Health 2017-04-21 2017-04-21 Outpatient [facility] [id number] [place] 09:03:33 09:03:33 Health 2017-04-21 2017-04-21 Outpatient [facility] [id number] [place] 00:00:00 00:00:00 Health 2017-04-20 2017-04-20 Office Meek MILAN LC Encounter/ Legacy 00:00:00 00:00:00 Visit Cindy [id number] Com yanely 143173 ty Health 2017-04-19 2017-04-19 Outpatient [facility] [id number] [place] 00:00:00 00:00:00 Health 2017-04-19 2017-04-19 Office Tariq Kelly Enc ounter/ Legacy 00:00:00 00:00:00 Visit Reba Membreno [id number] Andrew Helms [id number] Lyly Berger [facility] 2017-04-08 2017-04-08 Office ANNI Eden Encounter/ Legacy 00:00:00 00:00:00 Visit Cindy [id number] Com yanely [id number] [facility] 2017-04-08 2017-04-08 Office Meek MILAN LC Encounter/ Legacy 00:00:00 00:00:00 Visit Cindy [id number] Com yanely [id number] [facility] 2017-04-08 2017-04-08 Office Meek MILAN LC Encounter/ Legacy 00:00:00 00:00:00 Visit Cindy [id number] Com yanely [id number] [facility] 2017-04-07 2017-04-08 [facility] [id number] Legacy 00:00:00 00:00:00 encounter Reba Membreno Behavioral 7 0510 [facility] 2017-04-07 2017-04-07 Outpatient [facility] [id number] [place] 16:09:19 16:09:19 Health 2017-04-07 2017-04-07 Office ANNI KellyH Encounter/ Legacy 00:00:00 00:00:00 Visit Tariq [id number] Co mmuni 215024 ty Health 2017-04-07 2017-04-07 Office ANNI Kelly Encounter/ Legacy 00:00:00 00:00:00 Visit Tariq [id number] Co mmuni 487956 ty Health 2017-04-07 2017-04-07 Office LeticiaANNI Encounter/ Legacy 00:00:00 00:00:00 Visit Tariq [id number] Co mmuni 060639 ty Health 2017-04-07 2017-04-07 Office LeticiaTariq Enc ounter/ Legacy 00:00:00 00:00:00 Visit Reba Membreno [id number] 1258 [facility] 895155 ty Health 2017-03-29 2017-03-29 Outpatient [facility] [id number] [place] 16:47:01 16:47:01 Health 2017-03-29 2017-03-29 Outpatient [facility] [id number] [place] 14:39:27 14:39:27 Health 2017-03-22 2017-03-28 [facility] [id number] Legacy 00:00:00 00:00:00 encounter [facility] [id number] [facility] Health 2017-03-25 2017-03-25 Outpatient [facility] [id number] [place] 10:02:10 10:02:10 Health 2017-03-25 2017-03-25 Outpatient [facility] [id number] [place] 08:20:34 08:20:34 Health 2017-03-23 2017-03-23 Outpatient [facility] [id number] [place] 10:46:35 10:46:35 Health 2017-03-22 2017-03-22 Office ANNI Villasenor Encounter/ Legacy 00:00:00 00:00:00 Visit Tati [id number] Com yanely 538674 ty Health 2017-03-22 2017-03-22 Office ANNI Gutierrez Encounter / Legacy 00:00:00 00:00:00 Visit Cheyanne [id number] Com yanely 189794 ty Health 2017-03-22 2017-03-22 Office ANNI Shankar Encounter / Legacy 00:00:00 00:00:00 Visit Jose [id number] Com yanely 394386 ty Health 2017-03-22 2017-03-22 Office ANNI Villasenor Encounter/ Legacy 00:00:00 00:00:00 Visit Tati [id number] Com yanely 904575 ty Health 2017-03-22 2017-03-22 Office Tati Villasenor [facility] En counter/ Legacy 00:00:00 00:00:00 Visit Jose Shankar [id number] [facility] 500899 ty Health 2017-03-20 2017-03-20 Office ANNI VillasenorH Encounter/ Legacy 00:00:00 00:00:00 Visit Tati [id number] Com yanely 404064 ty Health 2017-03-14 2017-03-14 Emergency [facility] [id number] [place] 19:37:44 19:37:44 Health 2017-03-11 2017-03-11 Office ANNI EdenH Encounter/ Legacy 00:00:00 00:00:00 Visit Cindy [id number] Com yanely 359698 ty Health 2017-03-09 2017-03-09 Office ANNI EdenH Encounter/ Legacy 00:00:00 00:00:00 Visit Cindy [id number] Com yanely 564229 ty Health 2017-03-08 2017-03-08 Office LeticiaMILANH [facility] Encounter/ Legacy 00:00:00 00:00:00 Visit Tariq [id number] Co mmuni 602791 ty Health 2017-03-08 2017-03-08 Office Leticia, [facility] Encounter/ Legacy 00:00:00 00:00:00 Visit Tariq [id number] Co mmuni 987951 ty Health 2017-03-04 2017-03-04 Outpatient [facility] [id number] [place] 10:47:37 10:47:37 Health 2017-03-04 2017-03-04 Outpatient [facility] [id number] [place] 08:15:19 08:15:19 Health 2017-03-02 2017-03-02 Outpatient [facility] [id number] [place] 07:59:51 07:59:51 Health 2017-03-01 2017-03-01 Office Tariq KellyH [facility] Enc ounter/ Legacy 00:00:00 00:00:00 Visit Lyly Solorio [id number] Communi 666062 ty Health 2017-02-23 2017-02-23 Outpatient [facility] [id number] [place] 12:44:39 12:44:39 Health 2017-02-23 2017-02-23 Outpatient [facility] [id number] [place] 10:54:11 10:54:11 Health 2017-02-17 2017-02-17 Emergency [facility] [id number] [place] 00:15:09 00:15:09 Health 2017-02-16 2017-02-16 Emergency [facility] [id number] [place] 22:27:01 22:27:01 Health 2017-02-03 2017-02-03 Office Rosa Elena Guido H Encounter/ Legacy 00:00:00 00:00:00 Visit [facility] [id number] 2017-01-28 2017-01-28 Office Rakesh Romero [facility] En counter/ Legacy 00:00:00 00:00:00 Visit Tariq Kelly [id number] [facility] Rosa Elena Guido 2 65523 Health 2017-01-27 2017-01-[address] [facility] Encounte r/ Legacy 00:00:00 00:00:00 Visit Marquez [id number] Com yanely 863638 ty Health 2017-01-27 2017-01-[address] [facility] Encounte r/ Legacy 00:00:00 00:00:00 Visit Marquez [id number] Com yanely 505714 ty Health 2017-01-20 2017-01-20 Outpatient [facility] [id number] [place] 08:23:21 08:23:21 Health 2017-01-19 2017-01-19 [facility] Legacy 00:00:00 00:00:00 Visit Anusha García [id number] Communi 751184 Health 2017-01-15 2017-01-15 Outpatient [facility] [id number] [place] 09:19:52 09:19:52 Health 2017-01-15 2017-01-15 Outpatient [facility] [id number] [place] 07:59:16 07:59:16 Health 2017-01-06 2017-01-06 Office Status, Fax ANNI YATES Encoun ter/ Legacy 00:00:00 00:00:00 Visit [id number] Com yanely 015868 ty Health 2017-01-06 2017-01-06 Office Status, Fax [facility] Encoun ter/ Legacy 00:00:00 00:00:00 Visit [id number] Com yanely 732249 ty Health 2017-01-06 2017-01-06 Office Status, Fax [facility] Encoun ter/ Legacy 00:00:00 00:00:00 Visit [id number] Com yanely 702689 ty Health 2017-01-01 2017-01-01 [facility] Legacy 00:00:00 00:00:00 Visit Cindy [id number] Com yanely 564355 ty Health 2016-12-30 2016-12-30 [facility] Legacy 00:00:00 00:00:00 Visit Cindy [id number] Com yanely 795309 ty Health 2016-12-30 2016-12-30 [facility] Legacy 00:00:00 00:00:00 Visit Cindy [id number] Com yanely 938441 ty Health 2016-12-29 2016-12-29 [facility] Legacy 00:00:00 00:00:00 Visit Tariq [id number] Co mmuni 653928 ty Health 2016-12-29 2016-12-29 [facility]/ Legacy 00:00:00 00:00:00 Visit Milind [id number] Com yanely 566367 ty Health 2016-12-29 2016-12-29 [facility]/ Legacy 00:00:00 00:00:00 Visit Reba Membreno [id number] 8309 Communi 940712 ty Health 2016-12-29 2016-12-[address] [facility] Encount er/ Legacy 00:00:00 00:00:00 Visit Milind [id number] Com yanely 233915 ty Health 2016-12-29 2016-12-[address] [facility] Encount er/ Legacy 00:00:00 00:00:00 Visit Milind [id number] Com yanely 911287 ty Health 2016-12-29 2016-12-29 Office Camila Henderson MILAN E ncounter/ Legacy 00:00:00 00:00:00 Visit Jose Shankar [id number] [facility] 102060 [facility] 2016-12-29 2016-12-29 Office ANNI Byrd Encounter/ Legacy 00:00:00 00:00:00 Visit Omaira [id number] Co mmuni 199893 [facility] 2016-12-29 2016-12-29 In-person Sahilesh Hendersonhafsa [facility] [id number] Legacy 00:00:00 00:00:00 encounter Jose Shank[facility] [id number] 1 [facility] 2016-12-27 2016-12-27 Office ANNI Key Encount er/ Legacy 00:00:00 00:00:00 Visit Jinalexey [id number] Com yanely 747943 [facility] 2016-12-17 2016-12-17 Office Tariq Kelly MILAN Enc ounter/ Legacy 00:00:00 00:00:00 Visit Reba Membreno [id number] Gilma Cortes [phone] [facility] 2016-12-15 2016-12-15 Office MILAN Kelly MILAN Encounter/ Legacy 00:00:00 00:00:00 Visit Tariq [id number] [facility] [id number] [facility] 2016-12-15 2016-12-15 Office MILAN Kelly MILAN Encounter/ Legacy 00:00:00 00:00:00 Visit Tariq [id number] [facility] [id number] [facility] 2016-12-15 2016-12-15 Office Tariq Kelly MILAN Enc ounter/ Legacy 00:00:00 00:00:00 [facility]ba Mem[facility] [id number] 2016-12-15 2016-12-15 Office ANNI Hansen Encounte r/ Legacy 00:00:00 00:00:00 Visit Rosa Elena [id number] [facility] yanely 336702 ty Health 2016-12-15 2016-12-[address] [facility] Encounte r/ Legacy 00:00:00 00:00:00 Visit Rosa Elena [id number] Com yanely 733343 Health 2016-12-15 2016-12-15 In-person LeticiaTariq Jaylen Nevarez to [phone] Legacy 00:00:00 00:00:00 encounter Reba [facility] 7 0117 [facility] 2016-12-02 2016-12-02 [facility] Legacy 00:00:00 00:00:00 Visit Benton-BernardbillyRosa Elena evans [id number] [facility] 977607 Health 2016-12-01 2016-12-01 [facility] Legacy 00:00:00 00:00:00 Visit Ronal Benjamin [id number] [facility] 116864 Health 2016-12-01 2016-12-01 In-person Tariq Kelly [place] to [phone] Legacy 00:00:00 00:00:00 encounter Ronal Benjamin [facility] 7 0103 [facility] ty Health 2016-12-01 2016-12-01 [facility] Legacy 00:00:00 00:00:00 [facility] [id number] 2016-12-01 2016-12-01 Office MILAN Kelly [facility] Encounter/ Legacy 00:00:00 00:00:00 Visit Tariq [id number] Co mmuni 708123 ty Health 2016-12-01 2016-12-01 Office MILAN Kelly LC Encounter/ Legacy 00:00:00 00:00:00 Visit Tariq [id number] [facility] 682847 ty Health 2016-11-30 2016-11-30 Office MILAN Kelly LC Encounter/ Legacy 00:00:00 00:00:00 Visit Tariq [id number] [facility]i 030327 Health 2016-11-16 2016-11-16 Office ANNI Eden LC Encounter/ Legacy 00:00:00 00:00:00 Visit Cindy [id number] Com yanely 575983 ty Health 2016-11-16 2016-11-16 Office Leticia, MILAN [facility] Encounter/ Legacy 00:00:00 00:00:00 Visit Tariq [id number] Co m[facility]i 206432 ty Health 2016-11-16 2016-11-16 Office Atri, L[facility] Encounter/ Legacy 00:00:00 00:00:00 Visit Tariq [id number] [facility]i 558244 ty Health 2016-11-16 2016-11-16 Office Leticia, MILAN [facility] Encounter/ Legacy 00:00:00 00:00:00 Visit Tariq [id number] Co [facility]i 744625 ty Health 2016-11-16 2016-11-16 Office Tariq Kelly [facility] Enc ounter/ Legacy 00:00:00 00:00:00 Visit Reba Membreno 489008 7036 Communi 133886 ty Health 2016-11-16 2016-11-16 In-person Tariq KellyH [place] to [phone] Legacy 00:00:00 00:00:00 encounter Reba [facility] 6 1219 [facility] ty Health 2016-11-12 2016-11-12 Office ANNI Eden Encounter/ Legacy 00:00:00 00:00:00 Visit Tamika [id number] Co mmuni 005288 ty Health 2016-11-10 2016-11-10 Office ANNI Eden Encounter/ Legacy 00:00:00 00:00:00 Visit Cindy [id number] Com yanely 654133 ty Health 2016-11-10 2016-11-10 Office ANNI Eden [facility] Encounter/ Legacy 00:00:00 00:00:00 Visit Cindy [id number] Com yanely 991722 ty Health 2016-11-05 2016-11-05 Office ANNI Eden [facility] Encounter/ Legacy 00:00:00 00:00:00 Visit Cindy [id number] Com yanely 905696 ty Health 2016-10-29 2016-10-29 Office Natasha Byrd [facility] En counter/ Legacy 00:00:00 00:00:00 Visit Shelley Meng [id number] [facility] 385472 ty Health 2016-10-29 2016-10-29 Office ANNI Meng Encount er/ Legacy 00:00:00 00:00:00 Visit Shelley [id number] Com yanely 920049 ty Health 2016-10-29 2016-10-29 Office ANNI Byrd Encounter/ Legacy 00:00:00 00:00:00 Visit Natasha [id number] Com yanely 794995 ty Health 2016-10-29 2016-10-29 Office Natasha Byrd En counter/ Legacy 00:00:00 00:00:00 Visit Shelley Meng [id number] Communi 477146 ty Health 2016-10-29 2016-10-29 In-person Natasha Byrd [place] Rosaura nt [phone] Legacy 00:00:00 00:00:00 encounter Shelley Meng Family 6 1201 [facility] ty Health 2016-10-27 2016-10-27 Office ANNI Eden Encounter/ Legacy 00:00:00 00:00:00 Visit Cindy [id number] Com yanely 246375 ty Health 2016-10-21 2016-10-[address] [facility] Encounter/ Legacy 00:00:00 00:00:00 Visit Tariq [id number] Co m[facility]i 483981 ty Health 2016-10-20 2016-10-[address] [facility] Encounter/ Legacy 00:00:00 00:00:00 Visit Tariq [id number] Co mmuni 794424 ty Health 2016-10-20 2016-10-[address] [facility] Encounter/ Legacy 00:00:00 00:00:00 Visit Cindy [id number] Com yanely 528401 ty Health 2016-10-20 2016-10-[address] [facility] Encounter/ Legacy 00:00:00 00:00:00 Visit Cindy [id number] Com yanely 479507 ty Health 2016-10-20 2016-10-20 Office ANNI Eden Encounter/ Legacy 00:00:00 00:00:00 Visit Cindy [id number] Com yanely 287978 ty Health 2016-10-16 2016-10-16 Office Leticia, MILAN LC Encounter/ Legacy 00:00:00 00:00:00 Visit Tariq [id number] Co mmuni 682632 ty Health 2016-10-16 2016-10-16 Office Meek, MILAN LC Encounter/ Legacy 00:00:00 00:00:00 Visit Cindy [id number] Com yanely 248878 ty Health 2016-10-16 2016-10-16 Office MeekANNI LC Encounter/ Legacy 00:00:00 00:00:00 Visit Cindy [id number] Com yanely 325612 ty Health 2016-10-16 2016-10-16 Office ANNI Eden LC Encounter/ Legacy 00:00:00 00:00:00 Visit Cindy [id number] Com yanely 194149 ty Health 2016-10-16 2016-10-16 Office LeticiaMILAN LC Encounter/ Legacy 00:00:00 00:00:00 Visit Tariq [id number] Co mmuni 012058 ty Health 2016-10-16 2016-10-16 Office AtriMILAN LC Encounter/ Legacy 00:00:00 00:00:00 Visit Tariq [id number] Co mmuni 753830 Health 2016-10-16 2016-10-16 [facility] Legacy 00:00:00 00:00:00 Visit Cindy Eden [id number] 13 [facility] 823792 ty [facility] 2016-10-16 2016-10-16 [facility] [phone] Legacy 00:00:00 00:00:00 encounter Cindy [facility] 611 18 [facility] 2016-10-01 2016-10-[address] [facility] Enc ounter/ Legacy 00:00:00 00:00:00 Visit Gilma Null 1 [id number] [facility] 366775 [facility] 2016-09-04 2016-09-04 Office Rebekah YATES [facility] Encoun ter/ Legacy 00:00:00 00:00:00 Visit Rosa Elena hernández [id number] Communi 426976 [facility] 2016-09-02 2016-09-02 Office Espinoza [facility] Encounter/ Legacy 00:00:00 00:00:00 Visit Kraig [id number] Co mmuni 525777 [facility] 2016-09-02 2016-09-02 Office Tonia [facility] Encounter/ Legacy 00:00:00 00:00:00 Visit Maryuri [id number] Com yanely 216502 [facility] 2016-09-02 2016-09-02 Office Tonia [facility] Encounter/ Legacy 00:00:00 00:00:00 Visit Maryuri [id number] Com yanely 389609 [facility] 2014-07-13 2014-07-13 Office Espinoza [facility] Encounter/ Legacy 00:00:00 00:00:00 Visit Kraig Behavioral [id number] [facility] 104582 [facility] 2014-05-16 2014-05-16 Office Espinoza [facility] Encounter/ Legacy 00:00:00 00:00:00 Visit Kraig Behavioral [id number] [facility] 871465 [facility] 2014-05-01 2014-05-01 Office Ricky [facility] Encounter / Legacy 00:00:00 00:00:00 Visit Anusha [id number] Com yanely 730010 [facility] Results Test Description Test Time Test Comments Results Result Comments Source ECG 12 lead 2022-12-02 10:48:13 Test Item Value Reference Range Interpretation Comme nts Ventricular rate (test code = 253) 85 Atrial rate (test code = 255) 85 CA interval (test code = 266) 132 QRSD interval (test code = 260) 86 QT interval (test code = 264) 400 QTC interval (test code = 265) 476 P axis 1 (test code = 267) 34 QRS axis 1 (test code = 268) -16 T wave axis (test code = 270) 18 EKG impression (test code = 273) Normal sinus rhythm-Nonspecific T wave abnormality-Prolonged QT-Abnormal ECG-In automated comparison with ECG of 24-JUN-2020 22:04,-No significant change was found- [address]2023-01-04 10:48:13 Test Item Value Reference Range Interpretation Comments Ventricular rate (test 85 code = 253) Atrial rate (test code 85 = 255) CA interval (test code 132 = 266) QRSD interval (test 86 code = 260) QT interval (test code 400 = 264) QTC interval (test code 476 = 265) P axis 1 (test code = 34 267) QRS axis 1 (test code = -16 268) T wave axis (test code 18 = 270) EKG impression (test Normal sinus code = 273) rhythm-Nonspecific T wave abnormality-Prolonged QT-Abnormal ECG-In automated comparison with ECG of 24-JUN-2020 22:04,-No significant change was found- [address]2023-01-04 10:48:13 Test Item Value Reference Range Interpretation Comments Ventricular rate (test 85 code = 253) Atrial rate (test code 85 = 255) CA interval (test code 132 = 266) QRSD interval (test 86 code = 260) QT interval (test code 400 = 264) QTC interval (test code 476 = 265) P axis 1 (test code = 34 267) QRS axis 1 (test code = -16 268) T wave axis (test code 18 = 270) EKG impression (test Normal sinus code = 273) rhythm-Nonspecific T wave abnormality-Prolonged QT-Abnormal ECG-In automated comparison with ECG of 24-JUN-2020 22:04,-No significant change was found- [facility]2022-12-06 14:36:00 Test Item Value Reference Range Interpretation Comments POC glucose (test code 191 mg/dL 65-100 H Opera tor Name: = 45859-7) Estephanie Goodman I D: [id number] Lab Interpretation Abnormal (test code = 50504-6) [facility]2022-12-06 14:36:00 Test Item Value Reference Range Interpretation Comments POC glucose (test code 191 mg/dL 65-100 H Opera tor Name: = 50080-9) Estephanie Goodman I D: [id number] Lab Interpretation Abnormal (test code = 83883-2) [facility] [id number] 14:36:00 Test Item Value Reference Range Interpretation Comments POC glucose (test code 191 mg/dL 65-100 H Opera tor Name: = 42891-6) Estephanie Goodman I D: [id number] Lab Interpretation Abnormal (test code = 63879-5) [facility] [Presence] in Respiratory specimen by ROYA with probe [id number] 18:14:38 Test Item Value Reference Range Interpretation Comments SARS-CoV-2 (COVID-19) RNA Not detected [Presence] in Respiratory specimen by ROYA with probe detection (test code = 75047-2) Whether patient is employed in a Unknown healthcare setting (test code = 05418-6) Whether the patient has symptoms Unknown related to condition of interest (test code = 59128-0) Whether the patient was Unknown hospitalized for condition of interest (test code = 62044-3) Whether the patient was admitted Unknown to intensive care unit (ICU) for condition of interest (test code = 16422-2) Whether patient resides in a Unknown congregate care setting (test code = 55635-8) status (test code = Unknown 70813-9) Date and time of symptom onset Unknown (test code = 88123-5) [facility] [id number] 15:14:00 Test Item Value Reference Interpretation Comments Range Glucose (test code 111 mg/dL 65-99 H Fasting reference = 2345-7) interval For so meone without known diabetes, a glu cose valuebetween 10 0 and 125 mg/dL is consistent withprediabetes and should be confi rmed with afollow-up test. BUN (test code = 14 mg/dL 7-25 3094-0) Creatinine (test 0.83 mg/dL 0.50-0.99 code = 2160-0) eGFR (test code = 86 See_Comment The eGFR i s based on 8257) the CKD-EPI 202 1 equation. To calculate the n ew eGFR from a pre vious Creatinine or Cystatin Cresul t, go to https://www.kid ignacia.o rg/professional s/kdo qi/gfr%5Fcalcul ator [Automated mess age] The system [employer] generated this result transmit bev reference range : > OR = 60 mL/min/1.73m2. The reference range was not used to interpret this result as normal/abnormal . BUN/creatinine NOT APPLICABLE See_Comment [Automated message] ratio (test code = [employer] which 3097-3) generated this result transmit bev reference range : 6 - 22 (calc). The reference range was not used to interpret this result as normal/abnormal . Sodium (test code = 143 mmol/L 738-375 5032-2) Potassium (test 4.2 mmol/L 3.5-5.3 code = 2823-3) Chloride (test code 106 mmol/L 98-110 = 2075-0) CO2 (test code = 27 mmol/L 20-32 8-9) Calcium (test code 10.2 mg/dL 8.6-10.2 = 17131-8) Protein (test code 7.0 g/dL 6.1-8.1 = 2885-2) Albumin, S (test 4.3 g/dL 3.6-5.1 code = 1751-7) Globulin, total 2.7 See_Comment [Automated message] (test code = The system [employer] 99788-0) generated this result transmit bve reference range : 1.9 - 3.7 g/dL (maya c). The reference r august was not used to interpret this result as normal/abnormal . Albumin/globulin 1.6 See_Comment [Automated message] ratio (test code = [employer] which 1759-0) generated this result transmit bev reference range : 1.0 - 2.5 (calc). T he reference range was not used to interpret this result as normal/abnormal . Total bilirubin 0.2 mg/dL 0.2-1.2 (test code = 1975-2) Alkaline 50 U/L 31-125 phosphatase (test code = 6768-6) AST (test code = 11 U/L 10-35 1920-8) ALT (test code = 12 U/L 6-29 1742-6) TRUNG (test code = FASTING:YESCOLLEC TRUNG) TION KIT GIVEN TO PATIENT. PATIENT ADVISED TO RETURN. FASTING: YES RAC (test code = Performing RAC) Organization Information: Site ID: [place] Name: [facility] Address: [address] [place], [place] [id number] Director: Pradeep Coy Lab Interpretation Abnormal (test code = 06479-3) [facility]arcinoembryonic antigen (CEA)2022-09-24 15:14:00 Test Item Value Reference Range Interpretation Comments CEA (test 1.3 ng/mL See Note: Reference Range : code = Non-Smoker: <2. 5Smoker: 9-6) <5.0 This test was performed using the Siemens chemiluminescen t method. Values obtained fromdifferent a ssay methods cannot be usedinterchange ably. CEA levels, reg ardless ofvalue, should not be interpreted as absoluteevidenc e of the presence or abs ence of disease. TRUNG (test FASTING:YESCOLLECTI code = TRUNG) ON KIT GIVEN TO PATIENT. PATIENT ADVISED TO RETURN. FASTING: YES RAC (test Performing code = RAC) Organization Information: Site ID: [place] Name: [facility] Address: [address] [place] [phone] Director: Pradeep Coy [facility]ballFerritin [id number] 15:14:00 Test Item Value Reference Range Interpretation Comments Ferritin level (test 6 ng/mL 16-232 L code = 2276-4) TRUNG (test code = TRUNG) FASTING:YESCOLLECTION KIT GIVEN TO PATIENT. PATIENT ADVISED TO RETURN. FASTING: YES RAC (test code = RAC) Performing Organization Information: Site ID: [place] Name: [facility] Address: [address] [place] [phone] Director: Pradeep Coy Lab Interpretation (test Abnormal code = 88998-4) [facility]ballHemoglobin [id number] 15:14:00 Test Item Value Reference Interpretation Comments Range Hemoglobin A1C (test 6.9 See_Comment H For sidney eone without code = 4548-4) known diabete s, a hemoglobin A1cv alue of 6.5% or grea ter indicates that they may have diabet es and this should be confirmed with a follow-up test. For someone with kn own diabetes, a mynor ue <7% indicates t hat their diabetes is well controlled and a value greater than or equal t o 7% indicates suboptimal cont rol. A1c targets aleksander uld be individualiz ed based on durati on of diabetes, ag e, comorbid conditions, and other considerations. Currently, no consensus exist s regarding use ofhemoglobin A1 c for diagnosis o f diabetes for children. [Automated mess age] The system [employer] generated this result transmit bev reference range : <5.7 % of total Hgb. The refere nce range was not u sed to interpret th is result as normal/abnormal . TRUNG (test code = FASTING:YESCOLLEC TRUNG) TION KIT GIVEN TO PATIENT. PATIENT ADVISED TO RETURN. FASTING: YES RAC (test code = Performing RAC) Organization Information: Site ID: [place] Name: [facility] Address: [address] [place] [phone] Director: Pradeep Coy Lab Interpretation Abnormal (test code = 20529-5) [facility]ballCancer antigen [id number] 15:14:00 Test Item Value Reference Range Interpretation Comments CA 125 (test 9 U/mL <=35 This test was code = performed using the 71066-6) Siemens Chemiluminescen t method. Values obtained fromdifferent a ssay methods cannot be used interchangeably . CA 125 levels, regardl ess of value, should n ot be interpreted as absoluteevidenc e of the presence or abs ence of disease. TRUNG (test FASTING:YESCOLLECTI code = TRUNG) ON KIT GIVEN TO PATIENT. PATIENT ADVISED TO RETURN. FASTING: YES RAC (test Performing code = RAC) Organization Information: Site ID: A Name: [facility] Address: [address] [place] [phone] Director: Pradeep Coy [facility] TomballAlpha [id number] 15:14:00 Test Item Value Reference Interpretation Comments Range Alpha 1.4 ng/mL Reference Range : <6.1The fetoprotein use of AFP as a tumor (test code = marker in pregn antfemales 11446-2) is not recommen ded. This test was perfor med using the Abraham Coulterchemilum inescent method. Values obtained fromdifferent a ssay methods cannot be usedinterchange ably. AFP levels, regardl ess ofvalue, should not be interpreted as absoluteevidenc e of the presence or abs ence of disease. TRUNG (test code FASTING:YESCOLLE = TRUNG) CTION KIT GIVEN TO PATIENT. PATIENT ADVISED TO RETURN. FASTING: YES RAC (test code Performing = RAC) Organization Information: Site ID: Name: [facility] Address: [address] [place] [phone] Director: Dr. Pradeep Coy [facility] antigen [id number] 15:14:00 Test Item Value Reference Range Interpretation Comments CA 15-3 14 U/mL <=32 This test was p erformed (test code = using the Sieme ns 6875-9) (Narcisa)chemilum inescent method. Values obtained fromdifferent a ssay methods cannot be usedinterchange ably. CA 15-3 levels, re gardless ofvalue, should not be interpreted as absoluteevidenc e of the presence or abs ence of disease. TRUNG (test FASTING:YESCOLLECTI code = TRUNG) ON KIT GIVEN TO PATIENT. PATIENT ADVISED TO RETURN. FASTING: YES RAC (test Performing code = RAC) Organization Information: Site ID: [place] Name: [facility] Address: [address] [place] [phone] Director: Pradeep Kat [facility] antigen [id number] 15:14:00 Test Item Value Reference Range Interpretation Comments CA 19-9 10 U/mL <=34 This test was (test code = performed using the 66626-8) Siemens chemiluminescen t method. Values obtained fromdifferent a ssay methods cannot be usedinterchange ably. CA 19-9 levels, re gardless ofvalue, should not be interpreted as absoluteevidenc e of the presence or abs ence of disease. TRUNG (test FASTING:YESCOLLECTI code = TRUNG) ON KIT GIVEN TO PATIENT. PATIENT ADVISED TO RETURN. FASTING: YES RAC (test Performing code = RAC) Organization Information: Site ID: [place] Name: [facility] Address: [address] [place] [phone] Director: Pradeep Coy [facility] iron binding [id number] 15:14:00 Test Item Value Reference Range Interpretation Comments Iron level (test 47 See_Comment [Automated code = 2498-4) message] The system which generated this result transmitted reference range : 40 - 190 mcg/dL . The reference range was not used to interpr et this result as normal/abnormal . Iron binding 406 See_Comment [Automated capacity (test code message] The = 2500-7) system which generated this result transmitted reference range : 250 - 450 mcg/d L (calc). The reference range was not used to interpret this result as normal/abnormal . Iron saturation 12 See_Comment L [Automated (test code = 2502-3) message ] The system which generated this result transmitted reference range : 16 - 45 % (calc ). The reference range was not used to interpr et this result as normal/abnormal . TRUNG (test code = FASTING:YESCOLLECT TRUNG) ION KIT GIVEN TO PATIENT. PATIENT ADVISED TO RETURN. FASTING: YES RAC (test code = Performing RAC) Organization Information: Site ID: [place] Name: [facility] Address: [address] [place] [phone] Director: Pradeep Coy Lab Interpretation Abnormal (test code = 72711-4) [facility] [id number] 15:14:00 Test Item Value Reference Interpretation Comments Range Glucose (test code 111 mg/dL 65-99 H Fasting reference = 2345-7) interval For so meone without known diabetes, a glu cose valuebetween 10 0 and 125 mg/dL is consistent withprediabetes and should be confi rmed with afollow-up test. BUN (test code = 14 mg/dL 7-25 3094-0) Creatinine (test 0.83 mg/dL 0.50-0.99 code = 2160-0) eGFR (test code = 86 See_Comment The eGFR i s based on 8257) the CKD-EPI 202 1 equation. To calculate the n ew eGFR from a pre vious Creatinine or Cystatin Cresul t, go to https://www.kid ignacia.o rg/professional s/kdo qi/gfr%5Fcalcul ator [Automated mess age] The system whic h generated this result transmit bev reference range : > OR = 60 mL/min/1.73m2. The reference range was not used to interpret this result as normal/abnormal . BUN/creatinine NOT APPLICABLE See_Comment [Automated message] ratio (test code = The [employer] which 3097-3) generated this result transmit bev reference range : 6 - 22 (calc). The reference range was not used to interpret this result as normal/abnormal . Sodium (test code = 143 mmol/L 326-663 1003-2) Potassium (test 4.2 mmol/L 3.5-5.3 code = 2823-3) Chloride (test code 106 mmol/L 98-110 = 2075-0) CO2 (test code = 27 mmol/L 20-32 2027-9) Calcium (test code 10.2 mg/dL 8.6-10.2 = 11035-5) Protein (test code 7.0 g/dL 6.1-8.1 = 2885-2) Albumin, S (test 4.3 g/dL 3.6-5.1 code = 1751-7) Globulin, total 2.7 See_Comment [Automated message] (test code = The system [employer] 33006-3) generated this result transmit bev reference range : 1.9 - 3.7 g/dL (maya c). The reference r august was not used to interpret this result as normal/abnormal . Albumin/globulin 1.6 See_Comment [Automated message] ratio (test code = [employer] which 1759-0) generated this result transmit bev reference range : 1.0 - 2.5 (calc). T he reference range was not used to interpret this result as normal/abnormal . Total bilirubin 0.2 mg/dL 0.2-1.2 (test code = 1974-2) Alkaline 50 U/L 31-125 phosphatase (test code = 6768-6) AST (test code = 11 U/L 10-35 192-8) ALT (test code = 12 U/L 05-27-6) TRUNG (test code = FASTING:YESCOLLEC TRUNG) TION KIT GIVEN TO PATIENT. PATIENT ADVISED TO RETURN. FASTING: YES RAC (test code = Performing RAC) Organization Information: Site ID: A Name[facility] Address: [address] [place] [address] Director: Pradeep Coy Lab Interpretation Abnormal (test code = 56534-5) [facility]ballCarcinoembryonic antigen (CEA)2022-09-24 15:14:00 Test Item Value Reference Range Interpretation Comments CEA (test 1.3 ng/mL See Note: Reference Range : code = Non-Smoker: <2. 5Smoker: 2039-6) <5.0 This test was performed using the Siemens chemiluminescen t method. Values obtained fromdifferent a ssay methods cannot be usedinterchange ably. CEA levels, reg ardless ofvalue, should not be interpreted as absoluteevidenc e of the presence or abs ence of disease. TRUNG (test FASTING:YESCOLLECTI code = TRUNG) ON KIT GIVEN TO PATIENT. PATIENT ADVISED TO RETURN. FASTING: YES RAC (test Performing code = RAC) Organization Information: Site ID: [place] Name: [facility] Address: [address] [place] [address] Director: Pradeep Coy [facility]ball[facility]in [id number] 15:14:00 Test Item Value Reference Range Interpretation Comments Ferritin level (test 6 ng/mL 16-232 L code = 2276-4) TRUNG (test code = TRUNG) FASTING:YESCOLLECTION KIT GIVEN TO PATIENT. PATIENT ADVISED TO RETURN. FASTING: YES RAC (test code = RAC) Performing Organization Information: Site ID: [place] Name: [facility] Address: [address] [place] [address] Director: Pradeep Coy Lab Interpretation (test Abnormal code = 88687-0) [facility]ball[facility] [id number] 15:14:00 Test Item Value Reference Interpretation Comments Range Hemoglobin A1C (test 6.9 See_Comment H For sidney eone without code = 4548-4) known diabete s, a hemoglobin A1cv alue of 6.5% or grea ter indicates that they may have diabet es and this should be confirmed with a follow-up test. For someone with kn own diabetes, a mynor ue <7% indicates t hat their diabetes is well controlled and a value greater than or equal t o 7% indicates suboptimal cont rol. A1c targets aleksander uld be individualiz ed based on durati on of diabetes, ag e, comorbid conditions, and other considerations. Currently, no consensus exist s regarding use ofhemoglobin A1 c for diagnosis o f diabetes for children. [Automated mess age] The system [employer] generated this result transmit bev reference range : <5.7 % of total Hgb. The refere nce range was not u sed to interpret th is result as normal/abnormal . TRUNG (test code = FASTING:YESCOLLEC TRUNG) TION KIT GIVEN TO PATIENT. PATIENT ADVISED TO RETURN. FASTING: YES RAC (test code = Performing RAC) Organization Information: Site ID: [place] Name: [facility] Address: [address] [place] [phone] Director: Pradeep Coy Lab Interpretation Abnormal (test code = 00085-8) [facility] [id number] 15:14:00 Test Item Value Reference Range Interpretation Comments CA 125 (test 9 U/mL <=35 This test was code = performed using the 91694-4) Siemens Chemiluminescen t method. Values obtained fromdifferent a ssay methods cannot be used interchangeably . CA 125 levels, regardl ess of value, should n ot be interpreted as absoluteevidenc e of the presence or abs ence of disease. TRUNG (test FASTING:YESCOLLECTI code = TRUNG) ON KIT GIVEN TO PATIENT. PATIENT ADVISED TO RETURN. FASTING: YES RAC (test Performing code = RAC) Organization Information: Site ID: [place] [facility] Address: [address] [place] [phone] Director: Pradeep Coy [facility] [id number] 15:14:00 Test Item Value Reference Interpretation Comments Range Alpha 1.4 ng/mL Reference Range : <6.1The fetoprotein use of AFP as a tumor (test code = marker in pregn antfemales 25594-6) is not recommen ded. This test was perfor med using the Abraham Coulterchemilum inescent method. Values obtained fromdifferent a ssay methods cannot be usedinterchange ably. AFP levels, regardl ess ofvalue, should not be interpreted as absoluteevidenc e of the presence or abs ence of disease. TRUNG (test code FASTING:YESCOLLE = TRUNG) CTION KIT GIVEN TO PATIENT. PATIENT ADVISED TO RETURN. FASTING: YES RAC (test code Performing = RAC) Organization Information: Site ID: [place] [facility]: [facility] Address: [address] [place] [address] Director: Dr. Pradeep ChungSaint Barnabas [facility] CenterCancer antigen [id number] 15:14:00 Test Item Value Reference Range Interpretation Comments CA 15-3 14 U/mL <=32 This test was p erformed (test code = using the Sieme ns 6875-9) (Narcisa)chemilum inescent method. Values obtained fromdifferent a ssay methods cannot be usedinterchange ably. CA 15-3 levels, re gardless ofvalue, should not be interpreted as absoluteevidenc e of the presence or abs ence of disease. TRUNG (test FASTING:YESCOLLECTI code = TRUNG) ON KIT GIVEN TO PATIENT. PATIENT ADVISED TO RETURN. FASTING: YES RAC (test Performing code = RAC) Organization Information: Site ID: [place] Name: [facility] Address: [address] [place] [phone] Director: Pradeep Kat [facility] antigen [id number] 15:14:00 Test Item Value Reference Range Interpretation Comments CA 19-9 10 U/mL <=34 This test was (test code = performed using the 39470-0) Siemens chemiluminescen t method. Values obtained fromdifferent a ssay methods cannot be usedinterchange ably. CA 19-9 levels, re gardless ofvalue, should not be interpreted as absoluteevidenc e of the presence or abs ence of disease. TRUNG (test FASTING:YESCOLLECTI code = TRUNG) ON KIT GIVEN TO PATIENT. PATIENT ADVISED TO RETURN. FASTING: YES RAC (test Performing code = RAC) Organization Information: Site ID: [place] Name: [facility] Address: [address] [place] [phone] Director: [facility]ep ChungPalisades Medical Centertal iron binding [id number] 15:14:00 Test Item Value Reference Range Interpretation Comments Iron level (test 47 See_Comment [Automated code = 2498-4) message] The system which generated this result transmitted reference range : 40 - 190 mcg/dL . The reference range was not used to interpr et this result as normal/abnormal . Iron binding 406 See_Comment [Automated capacity (test code message] The = 2500-7) system which generated this result transmitted reference range : 250 - 450 mcg/d L (calc). The reference range was not used to interpret this result as normal/abnormal . Iron saturation 12 See_Comment L [Automated (test code = 2502-3) message ] The system which generated this result transmitted reference range : 16 - 45 % (calc ). The reference range was not used to interpr et this result as normal/abnormal . TRUNG (test code = FASTING:YESCOLLECT TRUNG) ION KIT GIVEN TO PATIENT. PATIENT ADVISED TO RETURN. FASTING: YES RAC (test code = Performing RAC) Organization Information: Site ID: [place] Name: [facility] Address: [address] [place] [phone] Director: Pradeep Coy Lab Interpretation Abnormal (test code = 88964-2) [facility] [id number] 15:14:00 Test Item Value Reference Interpretation Comments Range Glucose (test code 111 mg/dL 65-99 H Fasting reference = 2345-7) interval For so meone without known diabetes, a glu cose valuebetween 10 0 and 125 mg/dL is consistent withprediabetes and should be confi rmed with afollow-up test. BUN (test code = 14 mg/dL 06-22 3094-0) Creatinine (test 0.83 mg/dL 0.50-0.99 code = 2160-0) eGFR (test code = 86 See_Comment The eGFR i s based on 8257) the CKD-EPI 202 1 equation. To calculate the n ew eGFR from a pre vious Creatinine or Cystatin Cresul t, go to [email or web address].kid ignacia.o rg/professional s/kdo qi/gfr%5Fcalcul ator [Automated mess age] The system whic h generated this result transmit bev reference range : > OR = 60 mL/min/1.73m2. The reference range was not used to interpret this result as normal/abnormal . BUN/creatinine NOT APPLICABLE See_Comment [Automated message] ratio (test code = The syste m which 3097-3) generated this result transmit bev reference range : 6 - 22 (calc). The reference range was not used to interpret this result as normal/abnormal . Sodium (test code = 143 mmol/L 114-892 2683-2) Potassium (test 4.2 mmol/L 3.5-5.3 code = 2823-3) Chloride (test code 106 mmol/L 98-110 = 2075-0) CO2 (test code = 27 mmol/L 20-32 8-9) Calcium (test code 10.2 mg/dL 8.6-10.2 = 33863-3) Protein (test code 7.0 g/dL 6.1-8.1 = 2885-2) Albumin, S (test 4.3 g/dL 3.6-5.1 code = 1751-7) Globulin, total 2.7 See_Comment [Automated message] (test code = The [place] FiberLightic [place] 62619-3) generated this result transmit bev reference range : 1.9 - 3.7 g/dL (maya c). The reference r august was not used to interpret this result as normal/abnormal . Albumin/globulin 1.6 See_Comment [Automated message] ratio (test code = The [employer] Farm[employer] which 1759-0) generated this result transmit bev reference range : 1.0 - 2.5 (calc). T he reference range was not used to interpret this result as normal/abnormal . Total bilirubin 0.2 mg/dL 0.2-1.2 (test code = 1975-2) Alkaline 50 U/L 31-125 phosphatase (test code = 6768-6) AST (test code = 11 U/L 10-35 1920-8) ALT (test code = 12 U/L 6-29 1742-6) TRUNG (test code = FASTING:YESCOLLEC TRUNG) TION KIT GIVEN TO PATIENT. PATIENT ADVISED TO RETURN. FASTING: YES RAC (test code = Performing RAC) Organization Information: Site ID: [place] Name: [facility] Address: [address] [place] [phone] Director: Pradeep Coy Lab Interpretation Abnormal (test code = 24341-8) [facility] 15:14:00 Test Item Value Reference Range Interpretation Comments CEA (test 1.3 ng/mL See Note: Reference Range : code = Non-Smoker: <2. 5Smoker: 2038-6) <5.0 This test was performed using the Siemens chemiluminescen t method. Values obtained fromdifferent a ssay methods cannot be usedinterchange ably. CEA levels, reg ardless ofvalue, should not be interpreted as absoluteevidenc e of the presence or abs ence of disease. TRUNG (test FASTING:YESCOLLECTI code = TRUNG) ON KIT GIVEN TO PATIENT. PATIENT ADVISED TO RETURN. FASTING: YES RAC (test Performing code = RAC) Organization Information: Site ID: [place] [facility]: [facility] Address: [address] [place] [address] Director: Pradeep Coy [facility]ball[facility]ritin [id number] 15:14:00 Test Item Value Reference Range Interpretation Comments Ferritin level (test 6 ng/mL 16-232 L code = 2276-4) TRUNG (test code = TRUNG) FASTING:YESCOLLECTION KIT GIVEN TO PATIENT. PATIENT ADVISED TO RETURN. FASTING: YES RAC (test code = RAC) Performing Organization Information: Site ID: [place] Name: [facility] Address: [address] [place] [address] Director: Pradeep Coy Lab Interpretation (test Abnormal code = 68186-2) [facility]ball[facility]emoglobin [id number] 15:14:00 Test Item Value Reference Interpretation Comments Range Hemoglobin A1C (test 6.9 See_Comment H For sidney eone without code = 4548-4) known diabete s, a hemoglobin A1cv alue of 6.5% or grea ter indicates that they may have diabet es and this should be confirmed with a follow-up test. For someone with kn own diabetes, a mynor ue <7% indicates t hat their diabetes is well controlled and a value greater than or equal t o 7% indicates suboptimal cont rol. A1c targets aleksander uld be individualiz ed based on durati on of diabetes, ag e, comorbid conditions, and other considerations. Currently, no consensus exist s regarding use ofhemoglobin A1 c for diagnosis o f diabetes for children. [Automated mess age] The system [employer] generated this result transmit bev reference range : <5.7 % of total Hgb. The refere nce range was not u sed to interpret th is result as normal/abnormal . TRUNG (test code = FASTING:YESCOLLEC TRUNG) TION KIT GIVEN TO PATIENT. PATIENT ADVISED TO RETURN. FASTING: YES RAC (test code = Performing RAC) Organization Information: Site ID: [place] Name: [facility] Address: [address] [place] [address] Director: Pradeep Coy Lab Interpretation Abnormal (test code = 91196-0) [facility] antigen [id number] 15:14:00 Test Item Value Reference Range Interpretation Comments CA 125 (test 9 U/mL <=35 This test was code = performed using the 70517-9) Siemens Chemiluminescen t method. Values obtained fromdifferent a ssay methods cannot be used interchangeably . CA 125 levels, regardl ess of value, should n ot be interpreted as absoluteevidenc e of the presence or abs ence of disease. TRUNG (test FASTING:YESCOLLECTI code = TRUNG) ON KIT GIVEN TO PATIENT. PATIENT ADVISED TO RETURN. FASTING: YES RAC (test Performing code = RAC) Organization Information: Site ID: [place] Name: [facility] Address: [address] [place] [address] Director: Pradeep Coy [facility] [id number] 15:14:00 Test Item Value Reference Interpretation Comments Range Alpha 1.4 ng/mL Reference Range : <6.1The fetoprotein use of AFP as a tumor (test code = marker in pregn antfemales 18122-3) is not recommen ded. This test was perfor med using the Abraham [employer]chemilum inescent method. Values obtained fromdifferent a ssay methods cannot be usedinterchange ably. AFP levels, regardl ess ofvalue, should not be interpreted as absoluteevidenc e of the presence or abs ence of disease. TRUNG (test code FASTING:YESCOLLE = TRUNG) CTION KIT GIVEN TO PATIENT. PATIENT ADVISED TO RETURN. FASTING: YES RAC (test code Performing = RAC) Organization Information: Site ID: [place] Name: [facility] Address: [address] [place] [phone] Director: Dr. Pradeep Coy [facility] antigen [id number] 15:14:00 Test Item Value Reference Range Interpretation Comments CA 15-3 14 U/mL <=32 This test was p erformed (test code = using the Sieme ns 6875-9) (Narcisa)chemilum inescent method. Values obtained fromdifferent a ssay methods cannot be usedinterchange ably. CA 15-3 levels, re gardless ofvalue, should not be interpreted as absoluteevidenc e of the presence or abs ence of disease. TRUNG (test FASTING:YESCOLLECTI code = TRUNG) ON KIT GIVEN TO PATIENT. PATIENT ADVISED TO RETURN. FASTING: YES RAC (test Performing code = RAC) Organization Information: Site ID: [place] [facility]: [facility] Address: [address] [place] [phone] Director: Pradeep Kat [facility] antigen [id number] 15:14:00 Test Item Value Reference Range Interpretation Comments CA 19-9 10 U/mL <=34 This test was (test code = performed using the 09051-5) Siemens chemiluminescen t method. Values obtained fromdifferent a ssay methods cannot be usedinterchange ably. CA 19-9 levels, re gardless ofvalue, should not be interpreted as absoluteevidenc e of the presence or abs ence of disease. TRUNG (test FASTING:YESCOLLECTI code = TRUNG) ON KIT GIVEN TO PATIENT. PATIENT ADVISED TO RETURN. FASTING: YES RAC (test Performing code = RAC) Organization Information: Site ID: [place] Name: [facility] Address: [address] [place] [phone] Director: Pradeep Coy [facility] iron binding [id number] 15:14:00 Test Item Value Reference Range Interpretation Comments Iron level (test 47 See_Comment [Automated code = 2498-4) message] The system which generated this result transmitted reference range : 40 - 190 mcg/dL . The reference range was not used to interpr et this result as normal/abnormal . Iron binding 406 See_Comment [Automated capacity (test code message] The = 2500-7) system which generated this result transmitted reference range : 250 - 450 mcg/d L (calc). The reference range was not used to interpret this result as normal/abnormal . Iron saturation 12 See_Comment L [Automated (test code = 2502-3) message ] The system which generated this result transmitted reference range : 16 - 45 % (calc ). The reference range was not used to interpr et this result as normal/abnormal . TRUNG (test code = FASTING:YESCOLLECT TRUNG) ION KIT GIVEN TO PATIENT. PATIENT ADVISED TO RETURN. FASTING: YES RAC (test code = Performing RAC) Organization Information: Site ID: [place] [facility]: [facility] Address: [address] [place] [phone] Director: Pradeep Coy Lab Interpretation Abnormal (test code = 91500-0) [facility]2022-08-19 02:56:00 Test Item Value Reference Range Interpretation Comments Urine culture Mixed sepideh Specimen isolate (test <=10-3 col/cc InformationSp ecimen code = 95204-2) Source: [facility] Site: Clean cat ch TRUNG (test code = TRUNG) [facility]2022-08-19 02:56:00 Test Item Value Reference Range Interpretation Comments Urine culture Mixed sepidhe Specimen isolate (test <=10-3 col/cc InformationSp ecimen code = 04514-4) Source: [facility] Site: Clean cat TRUNG (test code = TRUNG) [facility]2022-08-19 02:56:00 Test Item Value Reference Range Interpretation Comments Urine culture Mixed sepideh Specimen isolate (test <=10-3 col/cc InformationSp ecimen code = 77903-9) Source: [facility] Site: Clean cat ch TRUNG (test code = TRUNG) [facility] W/AUTO DIFF WITH [id number] 03:27:18 Test Item Value Reference Range Interpretation Comments WBC (test code = 8.2 K/UL 3.5-11.0 1001) RBC (test code = 4.57 M/UL 3.80-5.40 1002) HEMOGLOBIN (test code 12.6 G/DL 11.5-15.5 = 1003) HEMATOCRIT (test code 37.8 % 34.0-45.0 = 1004) MCV (test code = 82.7 fL 80.0-99.0 1005) MCH (test code = 27.6 PG 25.0-33.0 1006) MCHC (test code = 33.3 G/DL 31.0-36.0 1007) RDW (test code = 14.9 % 11.5-15.0 1038) NEUTROPHILS (test 53.5 % code = 1008) LYMPHOCYTES (test 34.8 % code = 1010) MONOCYTES (test code 6.6 % = 1011) EOSINOPHILS (test 3.8 % code = 1012) BASOPHILS (test code 0.9 % = 1013) IMMATURE GRANULOCYTES 0.4 % (test code = 1036) NUCLEATED RBCS (test 0.0 /100 WBC'S See_Comment [Aut omated code = 1065) message] The sy stem which generated this result transmitted reference range : 0.0. The refere nce range was not u sed to interpret th is result as normal/abnormal . PLATELET COUNT (test 339 K/UL 130-400 code = 1015) ABSOLUTE NEUTROPHILS 4.41 K/UL 1.50-7.50 (test code = 1066) ABSOLUTE LYMPHOCYTES 2.86 K/UL 1.00-4.00 (test code = 1067) ABSOLUTE MONOCYTES 0.54 K/UL 0.20-1.00 (test code = 1068) ABSOLUTE EOSINOPHILS 0.31 K/UL 0.00-0.50 (test code = 1040) ABSOLUTE BASOPHILS 0.07 K/UL 0.00-0.20 (test code = 1069) ABS IMMATURE 0.03 K/UL 0.00-0.10 GRANULOCYTES (test code = 1020) ABS NUCLEATED RBCS 0.00 K/UL 0.00-0.11 (test code = 34910) HIV 1/2 4TH GEN, RFLX [id number] 03:12:31 Test Item Value Reference Range Interpretation Comments HIV 1/2 4TH GEN, RFLX CONF (test NON-REACTIVE NON-REACTIVE code = 3514) HEPATITIS PANEL, [id number] 03:12:31 Test Item Value Reference Range Interpretation Comments HEPATITIS A IgM (test NON-REACTIVE NON-REACTIVE code = 85889) HEPATITIS B CORE IgM NON-REACTIVE NON-REACTIVE (test code = 4644) HEPATITIS B SURF AG NON-REACTIVE NON-REACTIVE (test code = 2739) HEPATITIS C ANTIBODY NON-REACTIVE NON-REACTIVE (test code = 4675) INTERPRETATION (NOTE) Hepatitis A HEPATITIS A: (test serology shows no code = 2552) evidence of acu te hepatitis A. INTERPRETATION (NOTE) Hepatitis B HEPATITIS B: (test serology shows no code = 00277) evidence of ac seminole hepatitis B and no indication of exposure to hepatitis B vir us in the previous si xto eight months. INTERPRETATION (NOTE) Hepatitis C HEPATITIS C: (test serology shows no code = 80108) evidence of ex posure to hepatitisC v irus at this time. I t can take up to 12 m onths after exposure tothe hepatitis C vir us for antibodies to become detectab le in the blood in ce rtain patients. UNLES S OTHERWISE INDIC ATED, ALL TESTING PERFORMED [facility], [facility]. [address] [place], [place] [address] [place] [address] DIRECTOR: Austin MACIASIA NUMBER [id number] [facility] [place] [id number] COMPREHENSIVE METABOLIC [id number] 03:03:00 Test Item Value Reference Range Interpretation Comments GLUCOSE (test code = 156 MG/DL 70-99 H 2216) BUN (test code = 11 MG/DL 6-20 2207) CREATININE (test 0.73 MG/DL 0.60-1.30 code = 2214) eGFR (2020 CKD-EPI) 101 >60 (test code = 35502) ML/MIN/1.73 CALC BUN/CREAT (test 15 RATIO 6-28 code = 2235) SODIUM (test code = 141 MEQ/L 044-080 5205) POTASSIUM (test code 4.6 MEQ/L 3.5-5.4 = 2228) CHLORIDE (test code 100 MEQ/L 95-107 = 2215) CARBON DIOXIDE (test 23 MEQ/L 19-31 code = 2206) CALCIUM (test code = 10.3 MG/DL 8.5-10.5 2208) PROTEIN, TOTAL (test 7.3 G/DL 6.1-8.3 code = 2229) ALBUMIN (test code = 4.5 G/DL 3.5-5.2 2200) CALC GLOBULIN (test 2.8 G/DL 1.9-3.7 code = 2240) CALC A/G RATIO (test 1.6 RATIO 1.0-2.6 code = 2234) BILIRUBIN, TOTAL <0.2 MG/DL See_Comment [Automated message] (test code = 2207) The syste m which generated this result transmit bev reference range : <=1.2. The refe rence range was not u sed to interpret th is result as normal/abnormal . ALKALINE PHOSPHATASE 41 U/L 40-123 (test code = 2203) AST (test code = 29 U/L 9-40 2217) ALT (test code = 29 U/L 5-40 2218) hemoglobin A1C, blood, as % of total [id number] 12:33:00 Test Item Value Reference Range Interpretation Comments hemoglobin A1C, blood, as % of total 9.5 % 4.8-5.6 H hemoglobin (test code = 4548-4) [facility], [id number] 12:33:00 Test Item Value Reference Range Interpretation Comments LDL cholesterol, serum (test code = 92 mg/dL 0-99 2088-1) [facility] density [id number] 12:33:00 Test Item Value Reference Range Interpretation Comments very low density lipoproteins (test 70 mg/dL 5-40 H code = 2090-7) [facility]HDL cholesterol, [id number] 12:33:00 Test Item Value Reference Range Interpretation Comments HDL cholesterol, serum (test code = 41 mg/dL >39 2084-9) [facility], serum, [id number] 12:33:00 Test Item Value Reference Range Interpretation Comments triglyceride, serum, fasting (test 424 mg/dL 0-149 H code = 2571-8) [facility]cholesterol, [id number] 12:33:00 Test Item Value Reference Range Interpretation Comments cholesterol, serum (test code = 203 mg/dL 100-199 H 2092-3) [facility] Hospitalalanine aminotransferase (SGPT), [id number] 12:33:00 Test Item Value Reference Range Interpretation Comments alanine aminotransferase (SGPT), serum 99 1/L 0-32 H (test code = 1742-6) [facility] Healthaspartate aminotransferase (SGOT), [id number] 12:33:00 Test Item Value Reference Range Interpretation Comments aspartate aminotransferase (SGOT), 109 1/L 0-40 H serum (test code = 1920-8) [facility] Hospitalalkaline phosphatase, [id number] 12:33:00 Test Item Value Reference Range Interpretation Comments alkaline phosphatase, serum (test code 67 1/L 44-121 = 1783-0) [facility]bilirubin, serum, [id number] 12:33:00 Test Item Value Reference Range Interpretation Comments bilirubin, serum, total (test code <0.2 mg/dL 0.0-1.2 = 1975-2) [facility] Healthalbumin/globulin ratio, [id number] 12:33:00 Test Item Value Reference Range Interpretation Comments albumin/globulin ratio, 1.9 (unknown unit) 1.2-2.2 serum (test code = 1759-0) [facility] Healthglobulin, [id number] 12:33:00 Test Item Value Reference Range Interpretation Comments globulin, serum (test code 2.5 (unknown unit) 1.5-4.5 = 2336-6) [facility] Healthalbumin, [id number] 12:33:00 Test Item Value Reference Range Interpretation Comments albumin, serum (test code = 1751-7) 4.7 g/dL 3.8-4.8 [facility]protein, total, [id number] 12:33:00 Test Item Value Reference Range Interpretation Comments protein, total, serum (test code = 7.2 g/dL 6.0-8.5 2885-2) [facility] Hospitalcalcium, [id number] 12:33:00 Test Item Value Reference Range Interpretation Comments calcium, serum (test code = 1999-8) 9.9 mg/dL 8.7-10.2 [facility] Hospitalcarbon dioxide, venous [id number] 12:33:00 Test Item Value Reference Range Interpretation Comments carbon dioxide, venous blood (test 25 mmol/L 20- code = 7-1) [facility] Hospitalchloride, [id number] 12:33:00 Test Item Value Reference Range Interpretation Comments chloride, serum (test code = 101 mmol/L 96-106 2075-0) [facility] Healthpotassium, [id number] 12:33:00 Test Item Value Reference Range Interpretation Comments potassium, serum (test code = 4.7 mmol/L 3.5-5.2 2823-3) [facility] Hospitalsodium, [id number] 12:33:00 Test Item Value Reference Range Interpretation Comments sodium, serum (test code = 2951-2) 140 mmol/L 134-144 [facility] Hospitalurea nitrogen/creatinine ratio, [id number] 12:33:00 Test Item Value Reference Range Interpretation Comments urea nitrogen/creatinine 15 (unknown unit) 9-23 ratio, serum (test code = 3097-3) [facility] HealtheGFR if [id number] 12:33:00 Test Item Value Reference Range Interpretation Comments eGFR if 125 mL/min/{1.73 m2} >59 (test code = 01565-6) [facility] HospitalEstimated Glomerular Filtration Rate (calc)2021-09-18 12:33:00 Test Item Value Reference Range Interpretation Comments Estimated Glomerular 109 mL/min/{1.73 m2} >59 Filtration Rate (calc) (test code = 93169-8) [facility], [id number] 12:33:00 Test Item Value Reference Range Interpretation Comments creatinine, serum (test code = 0.59 mg/dL 0.57-1.00 2160-0) [facility]urea nitrogen, [id number] 12:33:00 Test Item Value Reference Range Interpretation Comments urea nitrogen, blood (test code = 9 mg/dL 6-24 3094-0) [facility] glucose, [id number] 12:33:00 Test Item Value Reference Range Interpretation Comments blood glucose, random (test code = 240 mg/dL 65-99 H 2339-0) [facility] Hospitalimmature granulocytes, percentage of total cells, blood 2021-09-18 12:33:00 Test Item Value Reference Range Interpretation Comments immature granulocytes, percentage of 1 % total cells, blood (test code = 39076-1) [facility]basophil count, [id number] 12:33:00 Test Item Value Reference Range Interpretation Comments basophil count, absolute (test 0.1 x10E3/uL 0.0-0.2 code = 84514-2) [facility] HealthEosinophil Absolute [id number] 12:33:00 Test Item Value Reference Range Interpretation Comments Eosinophil Absolute Count (test 0.3 X10E3/UL 0.0-0.4 code = 83900-7) [facility] Healthmonocyte count, blood, [id number] 12:33:00 Test Item Value Reference Range Interpretation Comments monocyte count, blood, automated 0.5 X10E3/UL 0.1-0.9 (test code = 742-7) [facility]allymph[facility] count, blood, [id number] 12:33:00 Test Item Value Reference Range Interpretation Comments lymphocyte count, blood, 2.5 X10E3/UL 0.7-3.1 automated (test code = 731-0) [facility] HospitalAbsolute [id number] 12:33:00 Test Item Value Reference Range Interpretation Comments Absolute Neutrophils (test code 4.4 X10E3/UL 1.4-7.0 = 18924-3) [facility] Healthbasophils as percent of blood [id number] 12:33:00 Test Item Value Reference Range Interpretation Comments basophils as percent of blood 1 % leukocytes (test code = 707-0) [facility] Healtheosinophils as percent of blood [id number] 12:33:00 Test Item Value Reference Range Interpretation Comments eosinophils as percent of blood 4 % leukocytes (test code = 713-8) [facility] Healthmonocytes as percent of blood [id number] 12:33:00 Test Item Value Reference Range Interpretation Comments monocytes as percent of blood 7 % leukocytes (test code = 5905-5) [facility]mph[facility] as percent of blood [id number] 12:33:00 Test Item Value Reference Range Interpretation Comments lymphocytes as percent of blood 32 % leukocytes (test code = 736-9) [facility]neutrophils as percent of blood [id number] 12:33:00 Test Item Value Reference Range Interpretation Comments neutrophils as percent of blood 55 % leukocytes (test code = 770-8) [facility]platelet [id number] 12:33:00 Test Item Value Reference Range Interpretation Comments platelet count (test code = 244 X10E3/UL 150-450 777-3) [facility] Hospitalred blood cell distribution [id number] 12:33:00 Test Item Value Reference Range Interpretation Comments red blood cell distribution width 14.3 % 11.7-15.4 (test code = 788-0) [facility] corpuscular hemoglobin concentration, [id number] 12:33:00 Test Item Value Reference Range Interpretation Comments mean corpuscular hemoglobin 31.3 G/DL 31.5-35.7 L concentration, RBC (test code = 786-4) [facility] corpuscular hemoglobin, [id number] 12:33:00 Test Item Value Reference Range Interpretation Comments mean corpuscular hemoglobin, RBC 27.4 pg 26.6-33.0 (test code = 785-6) [facility] corpuscular volume, [id number] 12:33:00 Test Item Value Reference Range Interpretation Comments mean corpuscular volume, RBC (test code 88 fL 79-97 = 787-2) [facility]hematocrit, [id number] 12:33:00 Test Item Value Reference Range Interpretation Comments hematocrit, blood (test code = 4544-3) 39.9 % 34.0-46.6 [facility]hemoglobin, [id number] 12:33:00 Test Item Value Reference Range Interpretation Comments hemoglobin, blood (test code = 12.5 g/dL 11.1-15.9 718-7) [facility] Hospitalerythrocyte (RBC) [id number] 12:33:00 Test Item Value Reference Range Interpretation Comments erythrocyte (RBC) count (test 4.56 X10E6/UL 3.77-5.28 code = 789-8) [facility]leukocyte count, [id number] 12:33:00 Test Item Value Reference Range Interpretation Comments leukocyte count, blood (test 7.9 X10E3/UL 3.4-10.8 code = 6690-2) [facility] HospitalSARS-CoV-2 (COVID-19) RNA [Presence] in Respiratory specimen by ROYA with probe [id number] 12:33:06 Test Item Value Reference Range Interpretation Comments SARS-CoV-2 (COVID-19) RNA Not detected Not-Detected [Presence] in Respiratory specimen by ROYA with probe detection (test code = 10958-1) [facility] [id number] 15:29:37 Test Item Value Reference Range Interpretation Comments specific gravity, urine 1.020 (unknown unit) (test code = 5811-5) [facility] HealthpH, urine, [id number]1 15:29:37 Test Item Value Reference Range Interpretation Comments pH, urine, semiquantitative 5.0 (unknown (test code = 5803-2) unit) [facility]glucose, urine, [id number] 15:29:37 Test Item Value Reference Range Interpretation Comments glucose, urine, semiquantitative negative (test code = 5792-7) [facility]bilirubin, [id number] 15:29:37 Test Item Value Reference Range Interpretation Comments bilirubin, urine (test code = negative 5770-3) [facility] Hospitalketones, urine, by test jehno5053-16-14 15:29:37 Test Item Value Reference Range Interpretation Comments ketones, urine, by test strip (test negative code = 5797-6) [facility] Hospitalprotein, urine, semiquantitative (dipstick)2018-08-03 15:29:37 Test Item Value Reference Range Interpretation Comments protein, urine, semiquantitative negative (dipstick) (test code = 1753-3) [facility] Hospitalurobilinogen, urine, semiquantitative (dipstick) 2018-08-03 15:29:37 Test Item Value Reference Range Interpretation Comments urobilinogen, urine, negative semiquantitative (dipstick) (test code = 5818-0) [facility] Hospitalnitrite, urine, ebbiqijemvyssmvf8827-16-59 15:29:37 Test Item Value Reference Range Interpretation Comments nitrite, urine, semiquantitative negative (test code = 5802-4) [facility] Hospitalleukocyte esterase, urine, by [id number] 15:29:37 Test Item Value Reference Range Interpretation Comments leukocyte esterase, urine, by negative dipstick (test code = 5799-2) [facility] Healthappearance, [id number] 15:29:37 Test Item Value Reference Range Interpretation Comments appearance, urine (test code = 5767-9) clear [facility] Hospitalurine [id number] 15:29:37 Test Item Value Reference Range Interpretation Comments urine color (test code = 5778-6) yellow [facility]blood in urine (hemoglobin) by cahgxtxh8226-33-03 15:29:37 Test Item Value Reference Range Interpretation Comments blood in urine (hemoglobin) by negative dipstick (test code = 4998) [facility] Healthblood in urine (hemoglobin) by uworfpok3837-94-88 15:29:37 Test Item Value Reference Range Interpretation Comments blood in urine (hemoglobin) by negative dipstick (test code = 4998) [facility] Hospitalthyroid stimulating hormone, [id number] 15:59:00 Test Item Value Reference Range Interpretation Comments thyroid stimulating hormone, 1.320 u[IU]/mL 0.450-4.500 serum (test code = 3016-3) [facility] Hospitalfollicle stimulating hormone, [id number] 15:59:00 Test Item Value Reference Range Interpretation Comments follicle stimulating hormone, 2.8 m[IU]/mL serum (test code = 2286-3) [facility]chlamydia DNA [id number] 15:53:00 Test Item Value Reference Range Interpretation Comments chlamydia DNA probe (test code = Negative Negative 20877-8) [facility] Hospitaltrichomonas vaginalis, [id number] 15:53:00 Test Item Value Reference Range Interpretation Comments trichomonas vaginalis, urine (test Negative Negative code = 5813-1) [facility] HospitalNeisseria gonorrhoeae DNA [id number] 15:53:00 Test Item Value Reference Range Interpretation Comments Neisseria gonorrhoeae DNA probe Negative Negative (test code = 41958-1) [facility] HospitalNeisseria gonorrhoeae DNA [id number] 15:53:00 Test Item Value Reference Range Interpretation Comments Neisseria gonorrhoeae DNA probe Negative Negative (test code = 36333-5) [facility] Hospitalblood glucose, [id number] 13:59:05 Test Item Value Reference Range Interpretation Comments blood glucose, random (test code = 109 mg/dL 2339-0) [facility] Hospitalinfluenza B virus [id number] 10:46:49 Test Item Value Reference Range Interpretation Comments influenza B virus antigen (test code negative = 76875-8) [facility] Hospitalinfluenza virus A [id number] 10:46:49 Test Item Value Reference Range Interpretation Comments influenza virus A antigen (test code negative = 5862-8) [facility]
--- NOTE | 2023-02-10 00:17 | ER ---
Nurse's Notes [facility] Name: Sera Mascorro Age: 47 yrs Sex: Female : 1975 Arrival Date: 02/09/2023 Time: 23:30 Bed IW1 Private MD: Diagnosis: Acute pharyngitis, acute upper respiratory infection, acute bacterial bronchitis;Acute pharyngitis, unspecified;Acute bronchitis, unspecified Presentation: 02/09 23:46 Chief complaint: Patient states: "I have a fever, cough, and sore throat" EMS states: as6 called out for flu like symptoms. Coronavirus screen: Client presents with at least one sign or symptom that may indicate coronavirus-19. Ebola Screen: No symptoms or risks identified at this time. Initial Sepsis Screen: Does the patient meet any 2 criteria? No. Patient's initial sepsis screen is negative. Does the patient have a suspected source of infection? No. Patient's initial sepsis screen is negative. Risk Assessment: Do you want to hurt yourself or someone else? Patient reports no desire to harm self or others. Onset of symptoms was February 03, 2023. 23:46 Method Of Arrival: EMS: [facility] as6 23:46 Acuity: ALFONSO 4 as6 Historical: - Allergies: 23:47 Morphine; as6 - PMHx: 23:47 Anxiety; Bipolar disorder; depressive disorder; diabetes mellitus; Gastroparesis; as6 Kidney stone; - PSHx: 23:47 Adenoid excision; Carpel Tunnel; hysterectomy; kidney stones removed; Lithotripsy; R as6 Leg surgery; renal stents; Tonsillectomy; - Immunization history:: Client reports receiving the 2nd dose of the Covid vaccine, Moderna. - Social history:: Smoking status: Patient denies any tobacco usage or history of. - Family history:: not pertinent. Vital Signs: 23:46 BP 103 / 63; Pulse 107; Resp 18 S; Temp 99.2(O); Pulse Ox 95% on R/A; Weight 82.1 kg as6 (R); Height 5 ft. 2 in. (R); Pain 9/10; 23:46 Body Mass Index 33.10 (82.10 kg, 157.48 cm) as6 23:46 Pain Scale: Adult as6 ED Course: 23:30 Patient arrived in ED. jj6 23:47 Triage completed. as6 23:48 Arm band placed on. as6 23:52 Peter Menjivar MD is Attending Physician. sp4 Administered Medications: No medications were administered Outcome: 02/10 00:16 Discharge ordered by . sp4 Signatures: Tamika Warren jj6 Constantino Staples, RN RN as6 Peter Menjviar MD MD sp4
--- NOTE | 2023-02-10 00:17 | EDPHYS ---
Physician Documentation [facility] Name: Sera Mascorro Age: 47 yrs Sex: Female : 1975 Arrival Date: 02/09/2023 Time: 23:30 Bed IW1 Private MD: ED Physician Peter Menjivar HPI: 02/09 23:52 This 47 yrs old Female presents to ER via EMS with complaints of Cough, sp4 Congestion, Sore Throat, Headache, Fever. 02/10 00:09 47-year-old female presents from local drug rehab with symptoms of upper respiratory sp4 illness starting 6 days ago. Patient states she is in rehab for cocaine addiction. Patient states that 6 days ago she has developed fevers, headache, sore throat, cough, congestion. Patient states that there is also voice hoarseness and pain on swallowing. Patient has a history of tonsillectomy. Additional history includes bipolar disorder, depressive disorder, diabetes mellitus. Patient reports her symptoms are moderate and not improving well with Tylenol or Celebrex, yesterday patient was COVID and influenza test were negative at the local clinic in [place]. Patient was prescribed Bromfed and lidocaine for her symptoms by the clinic in [place] and these medicines are not helping well. Historical: - Allergies: 02/09 23:47 Morphine; as6 - PMHx: 23:47 Anxiety; Bipolar disorder; depressive disorder; diabetes mellitus; Gastroparesis; as6 Kidney stone; - PSHx: 23:47 Adenoid excision; Carpel Tunnel; hysterectomy; kidney stones removed; Lithotripsy; R as6 Leg surgery; renal stents; Tonsillectomy; - Immunization history:: Client reports receiving the 2nd dose of the Covid vaccine, Moderna. - Social history:: Smoking status: Patient denies any tobacco usage or history of. - Family history:: not pertinent. ROS: 02/10 00:09 Constitutional: Negative for chills, and weight loss, positive for subjective fever, sp4 feeling unwell, voice hoarseness Eyes: Negative for injury, pain, redness, and discharge, ENT: Negative for injury, positive for sore throat, congestion, voice hoarseness, pain on swallowing Neck: Negative for injury, pain, and swelling, Cardiovascular: Negative for chest pain, palpitations, and edema, Respiratory: Negative for shortness of breath, wheezing, and pleuritic chest pain, positive for cough, congestion, nonproductive cough Abdomen/GI: Negative for abdominal pain, nausea, vomiting, diarrhea, and constipation, Back: Negative for injury and pain, : Negative for injury, bleeding, discharge, and swelling, MS/Extremity: Negative for injury and deformity, Skin: Negative for injury, rash, and discoloration, Neuro: Negative for headache, weakness, numbness, tingling, and seizure, Psych: Negative for depression, anxiety, suicide ideation, homicidal ideation, and hallucinations, Allergy/Immunology: Negative for hives, rash, and allergies, Endocrine: Negative for neck swelling, polydipsia, polyuria, polyphagia, and marked weight changes, Hematologic/Lymphatic: Negative for swollen nodes, abnormal bleeding, and unusual bruising. Exam: 00:09 Constitutional: This is a well developed, well nourished patient who is awake, alert, sp4 and in no acute distress. Overweight female nontoxic-appearing Head/Face: Normocephalic, atraumatic. Eyes: Pupils equal round and reactive to light, extra-ocular motions intact. Lids and lashes normal. Conjunctiva and sclera are non-icteric and not injected. Cornea within normal limits. Periorbital areas with no swelling, redness, or edema. ENT: Nares patent. No nasal discharge, no septal abnormalities noted. Tympanic membranes are normal and external auditory canals are clear. Oropharynx with no swelling, or masses, exudates, or evidence of obstruction, uvula midline. Mucous membranes moist. Bilateral pharyngeal erythema and irritation, tonsils are missing from prior tonsillectomy, no signs of airway obstruction Neck: Trachea midline, no thyromegaly or masses palpated, and no cervical lymphadenopathy. Supple, full range of motion without nuchal rigidity, or vertebral point tenderness. No Meningismus. Chest/axilla: Normal chest wall appearance and motion. Nontender with no deformity. No lesions are appreciated. Cardiovascular: Regular rate and rhythm with a normal S1 and S2. No gallops, murmurs, or rubs. Normal PMI, no JVD. No pulse deficits. Respiratory: Lungs have equal breath sounds bilaterally, clear to auscultation and percussion. No rales, rhonchi or wheezes noted. No increased work of breathing, no retractions or nasal flaring. Abdomen/GI: Soft, non-tender, with normal bowel sounds. No distension or tympany. No guarding or rebound. No evidence of tenderness throughout. Back: No spinal tenderness. No costovertebral tenderness. Full range of motion. Skin: Warm, dry with normal turgor. Normal color with no rashes, no lesions, and no evidence of cellulitis. MS/ Extremity: Pulses equal, no cyanosis. Neurovascular intact. Full, normal range of motion. Neuro: Awake and alert, GCS 15, oriented to person, place, time, and situation. Cranial nerves II-XII grossly intact. Motor strength 5/5 in all extremities. Sensory grossly intact. Cerebellar exam normal. Normal gait. Psych: Awake, alert, with orientation to person, place and time. Behavior, mood, and affect are within normal limits. Vital Signs: 02/09 23:46 BP 103 / 63; Pulse 107; Resp 18 S; Temp 99.2(O); Pulse Ox 95% on R/A; Weight 82.1 kg as6 (R); Height 5 ft. 2 in. (R); Pain 9/10; 23:46 Body Mass Index 33.10 (82.10 kg, 157.48 cm) as6 23:46 Pain Scale: Adult as6 MDM: 23:53 Patient medically screened. sp4 02/10 00:09 Differential Diagnosis: Bronchitis Influenza Upper Respiratory Infection Sinusitis sp4 Pharyngitis Otitis Media Allergic Rhinitis Viral Syndrome. Data reviewed: vital signs, nurses notes, Strep screen. ED course: Patient will be prescribed 5 days of Zithromax, dextromethorphan, Tessalon, and ibuprofen. 02/09 23:53 Order name: COVID-19/FLU A+B sp4 02/10 00:08 Order name: Rapid Strep sp4 Administered Medications: No medications were administered Disposition Summary: 02/10/23 00:16 Discharge Ordered Location: Home sp4 Problem: new sp4 Symptoms: have improved sp4 Condition: Stable sp4 Diagnosis - Acute pharyngitis, acute upper respiratory infection, acute bacterial bronchitis sp4 - Acute pharyngitis, unspecified sp4 - Acute bronchitis, unspecified sp4 Followup: sp4 - With: Private Physician - When: 7 - 10 days - Reason: Re-evaluation by your physician Forms: - Medication Reconciliation Form sp4 - Thank You Letter sp4 - Antibiotic Education sp4 - Prescription Opioid Use sp4 Signatures: Dispatcher [employer] Constantino Costello RN RN as6 Peter Menjivar MD MD sp4
[2023-02-10] MEDS ORDERED: BENZONATATE 100 MG CAP PO ONE (01:01)
[2023-02-10] MEDS ORDERED: PROMETHAZINE 25 MG TABLET ONE (01:01)
[2023-02-10] MEDS ORDERED: IBUPROFEN 400 MG TAB ONE (01:02)
[2023-02-10] MEDS ORDERED: AZITHROMYCIN 250 MG TAB ONE (01:02)
[2023-02-10 01:30] LABS: SARS-COV-2 RT PCR NEGATIVE (NEGATIVE)
[2023-02-10 07:50] VITALS: TEMP 99.2
[2023-02-10 07:52] VITALS: BP 103/67; O2SAT 95
== END 2023-02-10 02:07 | disposition home or self-care (01) ==
LOC: ER 23:29
DX: J20.9 Acute bronchitis, unspecified (principal); J06.9 Acute upper respiratory infection, unspecified; J02.9 Acute pharyngitis, unspecified; Z20.822 Contact with and (suspected) exposure to COVID-19; Z88.5 Allergy status to narcotic agent
CPT/HCPCS: 87070; 87081; 0240U; Q0169